=== PATIENT | female | born 1950 | race Caucasian/White ===

== ENCOUNTER 2019-09-21 16:51 | Outpatient (CLI) | payer MEDICARE, SELFPAY ==
[2019-09-21 17:04] LABS: Basophils Absolute Auto 0.06 K/mm3 (0.00-0.10); Basophils Percent Auto 0.5 % (0.0-1.0); Eosinophils Absolute Auto 0.65 K/mm3 (0.02-0.50); Hemoglobin 13.5 g/dL (11.7-13.8); Immature Granulocyte Absolute 0.05 K/mm3 (0.00-0.00); Immature Granulocyte Percent A 0.5 % (0.0-0.0); Lymphocytes Absolute Auto 2.52 K/mm3 (1.10-4.50); Lymphocytes Percent Auto 23.1 % (18.0-42.0); Mean Corpuscular HGB Conc 33.8 g/dL (32.0-36.0); Mean Corpuscular Hemoglobin 30.7 pg (27.0-31.0); Mean Corpuscular Volume 90.9 fL (78.0-102.0); Mean Platelet Volume 9.7 fl (9.2-11.8); Monocytes Absolute Auto 0.72 K/mm3 (0.10-0.90); Monocytes Percent Auto 6.6 % (2.0-11.0); Neutrophils Absolute Auto 6.9 K/mm3 (1.7-7.2); Neutrophils Percent Auto 63.3 % (50.0-70.0); Platelet Count Result 235 K/mm3 (150-420); Red Cell Distribution Width 12.6 % (11.6-14.4); White Blood Count 10.9 K/mm3 (4.8-10.8)
[2019-09-21 17:14] LABS: Hemoglobin A1C 7.3 % (<5.7)
[2019-09-21 17:49] LABS: Alanine Aminotransferase 27 U/L (14-59); Albumin Level 3.6 g/dL (3.4-5.0); Alkaline Phosphatase 100 U/L (46-116); Anion Gap 13.5 mmol/L (7-16); Aspartate Amino Transferase 16 U/L (15-37); Bilirubin,Total 0.1 mg/dL (0.00-1.00); Blood Urea Nitrogen 16 mg/dL (7-18); Carbon Dioxide 30 mmol/L (21-32); Chloride 101 mmol/L (98-108); Cholesterol 287 mg/dL (0-200); Estimated Glomerular Filt Rate > 60; Free T4 Free Thyroxine 1.23 ng/dL (0.76-1.46); Glucose 108 mg/dL (70-99); HDL Direct 44 mg/dL (40-60); LDL Cholesterol Calculated 202 mg/dL (<130); Osmolality Calculated 292 mOsm/kg (285-295); Potassium 4.5 mmol/L (3.5-5.1); Sodium 140 mmol/L (136-145); Total Protein 6.8 g/dL (6.4-8.2); Triglycerides 204 mg/dL (0-150)
[2019-09-21 18:35] LABS: Thyroid Stimulating Hormone Reflex 0.63 u/IU/mL (0.36-3.74)
[2019-09-23 14:52] LABS: Total Triiodothyronine (T3) 82 ng/dL (76-181)
== END 2019-09-21 16:52 | disposition home or self-care (01) ==
LOC: CHSLAB 16:54
PROVIDERS: PCP Family Medicine; Visit Provider Family Medicine
DX: E03.9 Hypothyroidism, unspecified (principal); E11.9 Type 2 diabetes mellitus without complications
CPT/HCPCS: 36415; 80053; 80061; 83036; 84439; 84443; 84480; 85025

== ENCOUNTER 2022-09-10 15:03 | Outpatient (CLI) | payer MEDICARE, SELFPAY ==
[2022-09-10 15:17] LABS: Basophils Absolute Auto 0.05 K/mm3 (0.00-0.10); Basophils Percent Auto 0.5 % (0.0-1.0); Eosinophils Absolute Auto 0.63 K/mm3 (0.02-0.50); Eosinophils Percent Auto 6.5 % (1.0-6.0); Hematocrit 37.5 % (35.0-42.0); Hemoglobin 12.3 g/dL (11.7-13.8); Immature Granulocyte Absolute 0.01 K/mm3 (0.00-0.00); Immature Granulocyte Percent A 0.1 % (0.0-0.0); Lymphocytes Absolute Auto 2.19 K/mm3 (1.10-4.50); Lymphocytes Percent Auto 22.5 % (18.0-42.0); Mean Corpuscular HGB Conc 32.8 g/dL (32.0-36.0); Mean Corpuscular Hemoglobin 30.8 pg (27.0-31.0); Mean Corpuscular Volume 93.8 fL (78.0-102.0); Mean Platelet Volume 9.3 fl (9.2-11.8); Monocytes Absolute Auto 0.67 K/mm3 (0.10-0.90); Monocytes Percent Auto 6.9 % (2.0-11.0); Neutrophils Absolute Auto 6.2 K/mm3 (1.7-7.2); Neutrophils Percent Auto 63.5 % (50.0-70.0); Platelet Count Result 235 K/mm3 (150-420); Red Cell Distribution Width 12.8 % (11.6-14.4); White Blood Count 9.8 K/mm3 (4.8-10.8)
[2022-09-10 15:27] LABS: Hemoglobin A1C 6.3 % (<5.7)
[2022-09-10 16:01] LABS: Alanine Aminotransferase 19 U/L (14-59); Albumin Level 3.4 g/dL (3.4-5.0); Alkaline Phosphatase 83 U/L (46-116); Anion Gap 7 mmol/L (8-16); Aspartate Amino Transferase 13 U/L (15-37); Bilirubin,Total 0.1 mg/dL (0.00-1.00); Blood Urea Nitrogen 18 mg/dL (7-18); Calcium 9.3 mg/dL (8.5-10.1); Carbon Dioxide 33 mmol/L (21-32); Chloride 103 mmol/L (98-108); Estimated Glomerular Filt Rate > 60; Free T4 Free Thyroxine 0.97 ng/dL (0.76-1.46); Glucose 110 mg/dL (70-99); Osmolality Calculated 298 mOsm/kg (285-295); Phenytoin Dilantin 10 ug/mL (10-20); Potassium 4.5 mmol/L (3.5-5.1); Sodium 143 mmol/L (136-145); Total Protein 6.7 g/dL (6.4-8.2)
== END 2022-09-10 15:04 | disposition home or self-care (01) ==
LOC: CHSLAB 15:05
PROVIDERS: PCP Nurse Practitioner Family; Visit Provider Nurse Practitioner Family
DX: E11.9 Type 2 diabetes mellitus without complications (principal); I10 Essential (primary) hypertension; E03.9 Hypothyroidism, unspecified
CPT/HCPCS: 36415; 80053; 80185; 83036; 84439; 84443; 85025

== ENCOUNTER 2022-10-08 14:12 | Outpatient (CLI) | payer MEDICARE, OTHER, SELFPAY ==
--- NOTE | ~2022-10-08 | US_ITS ---
US soft tissue upper back DATE: 10/08/2022 14:34 INDICATION: Localized mass on trunk, right back, for 2 months TECHNIQUE: Real-time and color flow imaging targeted to area of localized lump on right back COMPARISON: None FINDINGS: There is a 3.9 x 3.6 x 1.7 cm mildly irregular complicated cystic lesion with through trans mission and posterior enhancement in the subcutaneous soft tissues of the right back at the area of c linical complaint of lump. Mild color flow signal is noted at the margin suggesting some surrounding possible inflammatory change. Consider abscess, large sebaceous cyst, liquefying hematoma. IMPRESSION: 3.9 x 3.6 x 1.7 cm complicated cystic lesion of the subcutaneous tissues of the posterior right back Reviewed, dictated and finalized at [facility]. Reviewed, dictated and finalized at location [] IMPRESSION: 3.9 x 3.6 x 1.7 cm complicated cystic lesion of the subcutaneous ti ssues of the posterior right back
== END 2022-10-08 14:13 | disposition home or self-care (01) ==
LOC: CHSIMG 14:14
PROVIDERS: PCP Nurse Practitioner Family; Visit Provider Nurse Practitioner Family
DX: R22.2 Localized swelling, mass and lump, trunk (principal)
CPT/HCPCS: 76604

== ENCOUNTER 2022-10-13 16:11 | Emergency (ER) | payer MEDICARE, OTHER, SELFPAY ==
[2022-10-13 16:26] VITALS: BP 124/97; PULSE 89; RESP 20; TEMP 36.4; O2SAT 97
--- NOTE | 2022-10-13 18:43 | ED.GENADULT ---
HPI - General Adult General Chief complaint: Back Pain/Injury Stated complaint: back pain Time Seen by Provider: 10/13/22 16:31 History of Present Illness HPI narrative: Patient is a 72-year-old female who presents ER with concerns for infection to her back. Patient had a small area that looked like a blackhead several weeks ago that her tried to remove with a needle. Since then its become swollen and red. Patient is on oral antibiotics for 10 days that did not help. Symptoms persist today. There is been no drainage. No fevers or chills or sweats. Its located in the right mid back region. There is fluctuance. Related Data Home Medications Medication Instructions Recorded Confirmed Lactobacillus acidophilus 2,000 mmu cells PO BID 09/21/19 10/06/22 aspirin 325 mg tablet 325 mg PO DAILY 09/21/19 10/06/22 loratadine 10 mg capsule 10 mg PO DAILY 09/21/19 10/06/22 magnesium oxide 400 mg PO DAILY 09/21/19 10/06/22 meclizine 25 mg tablet 25 mg PO BID PRN 09/21/19 10/06/22 Allergies Allergy/AdvReac Type Severity Reaction Status Date / Time latex Allergy Intermediate Unknown Verified 10/06/22 14:32 Penicillins Allergy Intermediate Unknown Verified 10/06/22 14:32 Review of Systems Review of Systems: ROS unobtainable: Yes other (Aphasia due to stroke) [facility] Past Medical History Medical History (Updated 10/13/22 @ 18:45 by Saeid Fink MD) 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 HEAD: Normocephalic, atraumatic. CHEST: Clear to auscultation. No respiratory distress. HEART: Regular rate and rhythm. Normal peripheral pulses. SKIN: Warm, dry, no rash. Cystic abscess right back approximately 6 cm x 4 cm with overlying cellulitis noted. NEURO: Awake and alert and at neurologic baseline.. PSYCH: Normal mood and affect. Course Course Emergency Course: Cystic abscess drain. Packed. Discharge home. Discussed removal packing in 2 days. Vital Signs Vital signs: Vital Signs Temperature 97.5 F L 10/13/22 16:26 Pulse Rate 89 10/13/22 16:26 Respiratory Rate 20 10/13/22 16:26 Blood Pressure 124/97 H 10/13/22 16:26 Pulse Oximetry 97 10/13/22 16:26 Oxygen Delivery Room Air 10/13/22 16:26 Temperature 97.5 F L 10/13/22 16:26 Pulse Rate 89 10/13/22 16:26 Respiratory Rate 20 10/13/22 16:26 Blood Pressure 124/97 H 10/13/22 16:26 Pulse Oximetry 97 10/13/22 16:26 Oxygen Delivery Room Air 10/13/22 16:26 Procedures Abscess I/D back: Date of Incision: 10/13/22 Local Anesthetic: lidocaine 1% and with epi Amount of anesthesia used (mL): 6 Technique: incised with #11 blade Packing used?: iodoform I&D Results: Pus Complications: pain Medical Decision Making Vital Signs Vital Signs: Vital Signs Temperature 97.5 F L 10/13/22 16:26 Pulse Rate 89 10/13/22 16:26 Respiratory Rate 20 10/13/22 16:26 Blood Pressure 124/97 H 10/13/22 16:26 Pulse Oximetry 97 10/13/22 16:26 Oxygen Delivery Room Air 10/13/22 16:26 Temperature 97.5 F L 10/13/22 16:26 Pulse Rate 89 10/13/22 16:26 Respiratory Rate 20 10/13/22 16:26 Blood Pressure 124/97 H 10/13/22 16:26 Pulse Oximetry 97 10/13/22 16:26 Oxygen Delivery Room Air 10/13/22 16:26 Discharge Plan Discharge Clinical Impression: Infected cyst of skin P
== END 2022-10-13 19:05 | disposition home or self-care (01) ==
PROVIDERS: Emergency Provider Emergency Medicine; PCP Nurse Practitioner Family
DX: L02.212 Cutaneous abscess of back [any part, except buttock and flank] (principal); L03.312 Cellulitis of back [any part except buttock and flank]; G40.909 Epilepsy, unspecified, not intractable, without status epilepticus; I10 Essential (primary) hypertension; E78.00 Pure hypercholesterolemia, unspecified; E03.9 Hypothyroidism, unspecified; I69.320 Aphasia following cerebral infarction; E11.9 Type 2 diabetes mellitus without complications; K21.9 Gastro-esophageal reflux disease without esophagitis; F32.A Depression, unspecified; Z90.710 Acquired absence of both cervix and uterus; Z79.82 Long term (current) use of aspirin
CPT/HCPCS: 10061; 10080; 99283

== ENCOUNTER 2023-05-07 13:54 | Outpatient (CLI) | payer MEDICARE, OTHER, SELFPAY ==
[2023-05-07 14:14] LABS: Basophils Absolute Auto 0.06 K/mm3 (0.00-0.10); Basophils Percent Auto 0.6 % (0.0-1.0); Eosinophils Absolute Auto 0.35 K/mm3 (0.02-0.50); Eosinophils Percent Auto 3.3 % (1.0-6.0); Hematocrit 37.4 % (35.0-42.0); Hemoglobin 12.2 g/dL (11.7-13.8); Immature Granulocyte Absolute 0.08 K/mm3 (0.00-0.00); Immature Granulocyte Percent A 0.8 % (0.0-0.0); Lymphocytes Absolute Auto 1.79 K/mm3 (1.10-4.50); Lymphocytes Percent Auto 16.9 % (18.0-42.0); Mean Corpuscular HGB Conc 32.6 g/dL (32.0-36.0); Mean Corpuscular Hemoglobin 30.9 pg (27.0-31.0); Mean Corpuscular Volume 94.7 fL (78.0-102.0); Mean Platelet Volume 9.5 fl (9.2-11.8); Monocytes Percent Auto 5.7 % (2.0-11.0); Neutrophils Absolute Auto 7.7 K/mm3 (1.7-7.2); Neutrophils Percent Auto 72.7 % (50.0-70.0); Platelet Count Result 453 K/mm3 (150-420); Red Blood Count 3.95 M/mm3 (4.20-5.40); Red Cell Distribution Width 13.2 % (11.6-14.4); White Blood Count 10.6 K/mm3 (4.8-10.8)
[2023-05-07 14:25] LABS: Hemoglobin A1C 6.7 % (<5.7)
[2023-05-07 15:30] LABS: Alanine Aminotransferase 36 U/L (14-59); Albumin Level 3.4 g/dL (3.4-5.0); Alkaline Phosphatase 96 U/L (46-116); Anion Gap 6 mmol/L (8-16); Aspartate Amino Transferase 14 U/L (15-37); Bilirubin,Total 0.1 mg/dL (0.00-1.00); Blood Urea Nitrogen 15 mg/dL (7-18); Calcium 9.8 mg/dL (8.5-10.1); Carbon Dioxide 34 mmol/L (21-32); Chloride 99 mmol/L (98-108); Cholesterol 277 mg/dL (0-200); Estimated Glomerular Filt Rate > 60; Free T4 Free Thyroxine 0.88 ng/dL (0.76-1.46); Glucose 218 mg/dL (70-99); HDL Direct 46 mg/dL (40-60); LDL Cholesterol Calculated 181 mg/dL (<130); Magnesium 1.9 mg/dL (1.8-2.4); Osmolality Calculated 295 mOsm/kg (285-295); Potassium 4.5 mmol/L (3.5-5.1); Sodium 139 mmol/L (136-145); Thyroid Stimulating Hormone 3.72 uIU/mL (0.36-3.74); Total Protein 6.7 g/dL (6.4-8.2); Triglycerides 251 mg/dL (0-150)
[2023-05-07 15:48] LABS: Vitamin B12 > 2000 pg/mL (193-986)
[2023-05-10 16:10] LABS: Vitamin D 25 Hydroxy 49 ng/mL (30-100)
== END 2023-05-07 13:55 | disposition home or self-care (01) ==
LOC: CHSLAB 13:55
PROVIDERS: PCP Nurse Practitioner Family; Visit Provider Nurse Practitioner Family
DX: E53.8 Deficiency of other specified B group vitamins (principal); Z79.899 Other long term (current) drug therapy; E11.9 Type 2 diabetes mellitus without complications; I10 Essential (primary) hypertension; Z13.6 Encounter for screening for cardiovascular disorders; E78.00 Pure hypercholesterolemia, unspecified; E03.9 Hypothyroidism, unspecified
CPT/HCPCS: 36415; 80053; 80061; 82306; 82607; 83036; 83735; 84439; 84443; 85025

== ENCOUNTER 2024-05-05 00:30 | Emergency (ER) | payer MEDICARE, OTHER, SELFPAY ==
--- NOTE | ~2024-05-05 | XR_ITS ---
Portable chest x-ray Comparison: 09/22/2017 Clinical History: Cough Findings: Stable right suprahilar density, probably related to the anterior right first rib. No acut e pulmonary abnormality seen. Cardiomediastinal silhouette is stable. Bones and soft tissues are unr emarkable. Impression: No acute abnormalities. Reviewed, dictated and finalized at [facility]. ERCIAL [employer] Impression: No acute abnormalities.
[2024-05-05 00:30] VITALS: BP 108/58; PULSE 79; RESP 18; TEMP 36.8; O2SAT 97
--- NOTE | 2024-05-05 00:40 | ED.FEVER ---
HPI - Fever General Chief Complaint: Fever Stated Complaint: Fever Time Seen by Provider: 05/05/24 00:39 Source: patient and family Mode of arrival: ambulatory Limitations: no limitations History of Present Illness HPI Narrative: patient is a 73-year-old female with feverish sensation today and concerns for a pneumonia process. She was on an antibiotic for an upper respiratory infection a week ago. Family said they are just worried about the fever sensation and wanted a workup for that at this time. MD elicited complaint: fever and malaise Pertinent past history: other ( Hypertension) Onset (ago): day(s) (1; tactile fever only without a thermometer) Context: recent antibiotic use Exacerbating factors: nothing Relieving factors: nothing Associated symptoms: denies other symptoms Treatments prior to arrival fever: none Related Data Home Medications ?Medication ?Instructions ?Recorded ?Confirmed ?Last Taken ?Type aspirin 325 mg tablet 325 mg PO DAILY 09/21/19 04/14/24 Unknown History loratadine 10 mg capsule 10 mg PO DAILY 09/21/19 04/14/24 Unknown History magnesium oxide 400 mg PO DAILY 09/21/19 04/14/24 Unknown History meclizine 25 mg tablet 25 mg PO BID PRN 09/21/19 04/14/24 Unknown History Allergies Allergy/AdvReac Type Severity Reaction Status Date / Time latex Allergy Intermediate Unknown Verified 04/14/24 11:52 Penicillins Allergy Intermediate Unknown Verified 04/14/24 11:52 Review of Systems Review of Systems: All systems reviewed & are unremarkable except as noted in HPI and below Constitutional: Constitutional: Reports no additional constitutional complaints Eyes: Eyes: Reports no additional eye complaints ENT: Reports system reviewed and no additional complaints, except as documented Cardiovascular: Cardiovascular: Reports no additional cardiovascular complaints Respiratory: Respiratory: Reports no additional respiratory complaints Gastrointestinal: Gastrointestinal: Reports no additional gastrointestinal complaints Genitourinary: Genitourinary: Reports no additional female genitourinary complaints Musculoskeletal: Musculoskeletal: Reports no additional musculoskeletal complaints Integumentary/Breasts: Skin/Breast: Reports system reviewed and no additional complaints, except as docu Neurologic: Reports system reviewed and no additional complaints, except as documented Psychiatric: Psychiatric: Reports no additional psychiatric complaints Endocrine: Endocrine: Reports no additional endocrine complaints Hematologic/Lymphatic: Hematologic/Lymphatic: Reports no additional hematologic/lymphatic complaints Allergic/Immunologic: Allergic/Immunologic: Reports no additional allergic/immunologic complaints PMFSH Past Medical History Medical History 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 Type 2 diabetes mellitus Seizure disorder CVA (cerebral vascular accident) Hypothyroidism Hypertension Hypercholesterolemia Chronic GERD Depression Surgical History Surgical History History of hysterectomy Social History Social History Smoking status: Former smoker Alcohol intake: never Substance use: never Substance use type: does not use Living arrangements: with family Exam Const: General: healthy appearing Nutritional Appearance: well nourished Orientation/consciousness: patient oriented x3 Limitations: no limitations HENMT: Head: normal to inspection Ears: external ears normal Face/Nose/Sinus: Normal external nose present Eyes: Conjunctivae: conjunctivae normal Pupils: Equal, round and reactive pupils present EOM: EOMs intact bilaterally Neck: Neck: normal visual inspection Chest: Chest palpation & inspection: normal inspection of the chest Resp: Effort & Inspection: normal respiratory effort and not labored Auscultation: clear to auscultation bilaterally and no crackles Cardio: Rate: regular rate Rhythm: regular rhythm Heart sounds: no murmurs GI: Inspection: non-distended GI Palp: Yes Soft to palpation and No Tenderness to palpation present (GI) Auscultation: normal bowel sounds : General: Yes bladder normal to palpation Back/Spine/Pelvis: Back: no CVA tenderness Skin: General skin exam: normal color Rashes: no rashes Wounds: no wounds Neuro: General: patient oriented x3 Cranial nerves: Yes Nystagmus not present Speech: normal speech Gait exam (Neuro): Normal gait present Extrem: General: normal to inspection Psych: Appearance: grossly normal Mental Status: mental status grossly normal Affect: normal affect Attitude: cooperative MDM - Fever MDM Narrative Medical decision making narrative: patient is a 73-year-old female with fevers sensation today and concerns for infection. We will do a septic workup at this time. Evaluation shows UTI. We will treat accordingly. We will use Levaquin to cross cover lung and urinary system. Lab Data Attestation: I reviewed the patient's lab results. 05/05/24 01:10 05/05/24 01:10 Labs: Lab Results 05/05/24 05/05/24 Range/Units 01:10 01:45 WBC 9.2 (4.8-10.8) K/mm3 RBC 3.93 L (4.20-5.40) M/mm3 Hgb 11.9 (11.7-13.8) g/dL Hct 37.0 (35.0-42.0) % MCV 94.1 (78.0-102.0) fL MCH 30.3 (27.0-31.0) pg MCHC 32.2 (32-36) g/dL RDW 13.7 (11.6-14.4) % Plt Count 237 (150-420) K/mm3 MPV 9.4 (9.2-11.8) fl Immature Gran % (Auto) 0.2 H (0.0-0.0) % Neut % (Auto) 56.0 (50.0-70.0) % Lymph % (Auto) 30.4 (18.0-42.0) % [place] % (Auto) 7.0 (2.0-11.0) % Eos % (Auto) 5.6 (1.0-6.0) % Baso % (Auto) 0.8 (0.0-1.0) % Lymph # (Auto) 2.79 (1.10-4.50) K/mm3 [place] # (Auto) 0.64 (0.10-0.90) K/mm3 Eos # (Auto) 0.51 H (0.02-0.50) K/mm3 Baso # (Auto) 0.07 (0.00-0.10) K/mm3 Abs Immat Gran (auto) 0.02 H (0.00-0.00) K/mm3 Absolute Neuts (auto) 5.14 (1.70-7.20) K/mm3 Absolute Nucleated RBC 0.00 (0.00-0.00) K/mm3 Nucleated RBC % 0.0 (0-0.0) % Sodium 145 (136-145) mmol/L Potassium 4.2 (3.5-5.1) mmol/L Chloride 105 (98-108) mmol/L Carbon Dioxide 31 (21-32) mmol/L Anion Gap 9 (4-12) mmol/L BUN 27 H (7-18) mg/dL Creatinine 0.80 (0.55-1.02) mg/dL Estim Creat Clear Calc Not Reportable Estimated GFR > 60 (59 - ) Glucose 185 H (70-99) mg/dL Calculated Osmolality 310 H (285-295) mOsm/kg Lactic Acid 1.6 (0.4-2.0) mmol/L Calcium 9.3 (8.5-10.1) mg/dL Total Bilirubin 0.1 (0.00-1.00) mg/dL AST 12 L (15-37) U/L ALT 25 (14-59) U/L Alkaline Phosphatase 78 (46-116) U/L Total Protein 6.6 (6.4-8.2) g/dL Albumin 3.5 (3.4-5.0) g/dL Urine Color Light yellow (Yellow) Urine Appearance Cloudy A (Clear) Urine pH 5.5 (5.0-8.0) Ur Specific [place] >= 1.030 H (1.010-1.020) Urine Protein Trace H (Negative) Urine Glucose (UA) Negative (Negative) Urine Ketones Trace H (Negative) Ur Blood (Man) 1+ H (Negative) Urine Nitrate Negative (Negative) Urine Bilirubin Negative (Negative) Urine Urobilinogen 0.2 (0.2-1.0) mg/dL Leukocyte Esterase Rfl 2+ H (Negative) PAWEL/UL Urine RBC 11-20 H (0-2) /hpf Urine WBC 51-75 H (0-3) /hpf Ur Squamous Epith Cells Moderate H (Few) /hpf Amorphous Sediment Heavy H (None) Urine Bacteria 2+ H (None) /hpf Influenza A (RT-PCR) Negative (Negative) Influenza B (RT-PCR) Negative (Negative) RSV (RT-PCR) Negative (Negative) SARS-CoV-2 RNA (RT-PCR) Negative (Negative) Imaging Data Attestation: I personally reviewed and interpreted this imaging study as follows: Radiologist's impression: Chest x-ray shows no acute process and chronic changes seen Discharge Plan Discharge Clinical Impression: Acute UTI Patient Disposition: Home, Self-Care Condition: Stable Instructions: Antibiotic Form, Urinary Tract Infection in Women (DC) Patient Language: [place] Prescriptions: New levofloxacin 500 mg tablet 500 mg PO DAILY 7 Days Qty: 7 0RF No Action magnesium oxide 400 mg magnesium capsule 400 mg PO DAILY aspirin 325 mg tablet 325 mg PO DAILY loratadine 10 mg capsule 10 mg PO DAILY meclizine 25 mg tablet 25 mg PO BID PRN azithromycin [Zithromax Z-Ian] 250 mg tablet See Rx Instructions PO .COMPLEX Qty: 6 0RF Rx Instructions: take 500 mg today (day 1), then 250 mg for 4 days (days 2-5) PO Lactobacillus acidophilus Capsule 2,000 mmu cells PO BID Qty: 60 2RF Rx Instructions: give with food (meal/snack) dantrolene 25 mg capsule See Rx Instructions .ROUTE .COMPLEX Qty: 180 3RF Dose Instruction: TAKE 1 CAPSULE TWICE DAILY Rx Instructions: TAKE 1 CAPSULE TWICE DAILY atorvastatin 20 mg tablet 20 mg PO QHS Qty: 90 2RF baclofen 10 mg tablet See Rx Instructions .ROUTE .COMPLEX Qty: 90 0RF Dose Instruction: TAKE 1/2 TABLET BY MOUTH TWICE DAILY Rx Instructions: TAKE 1/2 TABLET BY MOUTH TWICE DAILY potassium chloride 20 mEq tablet,ER particles/crystals See Rx Instructions .ROUTE .COMPLEX Qty: 180 3RF Dose Instruction: TAKE 1 TABLET TWICE DAILY Rx Instructions: TAKE 1 TABLET TWICE DAILY levothyroxine 150 mcg tablet 150 mcg PO DAILY Qty: 90 3RF lisinopril 10 mg tablet See Rx Instructions .ROUTE .COMPLEX Qty: 90 3RF Dose Instruction: TAKE 1 TABLET BY MOUTH EVERY DAY Rx Instructions: TAKE 1 TABLET BY MOUTH EVERY DAY fluoxetine 20 mg capsule See Rx Instructions .ROUTE .COMPLEX Qty: 90 3RF Dose Instruction: TAKE 1 CAPSULE EVERY DAY Rx Instructions: TAKE 1 CAPSULE EVERY DAY phenytoin sodium extended 100 mg capsule See Rx Instructions .ROUTE .COMPLEX Qty: 270 3RF Dose Instruction: TAKE 1 CAPSULE IN MORNING AND 2 CAPSULES IN EVENING. Rx Instructions: TAKE 1 CAPSULE IN MORNING AND 2 CAPSULES IN EVENING. carvedilol 12.5 mg tablet See Rx Instructions .ROUTE .COMPLEX Qty: 180 3RF Dose Instruction: TAKE 1 TABLET EVERY 12 HOURS WITH MEALS Rx Instructions: TAKE 1 TABLET EVERY 12 HOURS WITH MEALS omeprazole 20 mg capsule,delayed release(DR/EC) See Rx Instructions .ROUTE .COMPLEX Qty: 90 3RF Dose Instruction: TAKE 1 CAPSULE EVERY DAY WITH LARGEST MEAL Rx Instructions: TAKE 1 CAPSULE EVERY DAY WITH LARGEST MEAL hydrochlorothiazide 25 mg tablet See Rx Instructions .ROUTE .COMPLEX Qty: 90 3RF Dose Instruction: TAKE 1 TABLET EVERY DAY Rx Instructions: TAKE 1 TABLET EVERY DAY gabapentin 300 mg capsule See Rx Instructions .ROUTE .COMPLEX Qty: 180 3RF Dose Instruction: TAKE 1 CAPSULE TWICE DAILY Rx Instructions: TAKE 1 CAPSULE TWICE DAILY Follow-up/Referrals: Iwona Devi BALANCE STAFF INSPECTOR [Primary Care Provider] - Time of Disposition: 04:05
[2024-05-05 01:14] LABS: Basophils Absolute Auto 0.07 K/mm3 (0.00-0.10); Basophils Percent Auto 0.8 % (0.0-1.0); Eosinophils Absolute Auto 0.51 K/mm3 (0.02-0.50); Eosinophils Percent Auto 5.6 % (1.0-6.0); Hemoglobin 11.9 g/dL (11.7-13.8); Immature Granulocyte Absolute 0.02 K/mm3 (0.00-0.00); Immature Granulocyte Percent A 0.2 % (0.0-0.0); Lymphocytes Absolute Auto 2.79 K/mm3 (1.10-4.50); Lymphocytes Percent Auto 30.4 % (18.0-42.0); Mean Corpuscular HGB Conc 32.2 g/dL (32-36); Mean Corpuscular Hemoglobin 30.3 pg (27.0-31.0); Mean Corpuscular Volume 94.1 fL (78.0-102.0); Mean Platelet Volume 9.4 fl (9.2-11.8); Monocytes Absolute Auto 0.64 K/mm3 (0.10-0.90); Neutrophils Absolute Auto 5.14 K/mm3 (1.70-7.20); Platelet Count Result 237 K/mm3 (150-420); Red Blood Count 3.93 M/mm3 (4.20-5.40); Red Cell Distribution Width 13.7 % (11.6-14.4); White Blood Count 9.2 K/mm3 (4.8-10.8)
[2024-05-05 01:29] LABS: Alanine Aminotransferase 25 U/L (14-59); Albumin Level 3.5 g/dL (3.4-5.0); Alkaline Phosphatase 78 U/L (46-116); Anion Gap 9 mmol/L (4-12); Aspartate Amino Transferase 12 U/L (15-37); Bilirubin,Total 0.1 mg/dL (0.00-1.00); Blood Urea Nitrogen 27 mg/dL (7-18); Calcium 9.3 mg/dL (8.5-10.1); Carbon Dioxide 31 mmol/L (21-32); Chloride 105 mmol/L (98-108); Estimated Glomerular Filt Rate > 60; Glucose 185 mg/dL (70-99); Osmolality Calculated 310 mOsm/kg (285-295); Potassium 4.2 mmol/L (3.5-5.1); Sodium 145 mmol/L (136-145); Total Protein 6.6 g/dL (6.4-8.2)
[2024-05-05 01:33] LABS: Influenza A QL RT-PCR Negative (Negative); Influenza B QL RT-PCR Negative (Negative); RSV RNA, RT-PCR Negative (Negative); SARS-CoV-2 RNA PCR Negative (Negative)
[2024-05-05 01:36] LABS: Lactic Acid Reflex 1.6 mmol/L (0.4-2.0)
[2024-05-05 01:49] LABS: Add Urine Microscopic? YES; Appearance Urine Cloudy (Clear); Bilirubin Urine Negative (Negative); Blood Urine 1+ (Negative); Color Urine Light Yellow (Yellow); Glucose Urine UA Negative (Negative); Ketones Urine Trace (Negative); Leukocyte Esterase Ur 2+ LEU/UL (Negative); Nitrate Urine Negative (Negative); Protein Urine Trace (Negative); Specific Grav Ur >= 1.030 (1.010-1.020); Urobilinogen Urine 0.2 mg/dL (0.2-1.0); pH Urine 5.5 (5.0-8.0)
[2024-05-05 01:55] LABS: Amorphous Sediment Urine Heavy; Bacteria Urine 2+ /hpf; Squamous Epithelial Cell Urine Moderate /hpf (Few); WBC Urine 51-75 /hpf (0-3)
[2024-05-05] MEDS: levoFLOXacin 500 MG TABLET PO (04:20)
[2024-05-05 04:43] VITALS: BP 110/62; PULSE 76; RESP 18; TEMP 36.8; O2SAT 98
--- NOTE | 2024-05-07 12:33 | PC.NURSE ---
FINAL URINE CULTURE REPORT; MIXED GENITAL ROHIT ISOLATED, NO FURTHER ACTION OR CHANGE IN TREATMENT PER DR. MONTEIRO.
--- NOTE | 2024-05-07 12:33 | PC.NURSE ---
PRELIMINARY BLOOD CULTURE; NO GROWTH TO DATE.
--- NOTE | 2024-05-11 14:22 | PC.NURSE ---
blood culture reviewed, no growth after 5 days
--- OUTSIDE RECORDS SUMMARY | 2024-05-11 20:08 | XMS_ITS | Encounter Summary ---
Author Organization [facility] Address [facility] [facility] [place] [address] [place] [address] Care Team Providers Care Air Conditioning Engineer Name Role Phone Unavailable Primary Care Provider Unavailabl e Encounter Details Date Type Department Care Team (Late st Contact Info) Description 03/07/[address] [facility] [place] [address] Adithya Marcelo, DO [address] [place] [address] Social History Tobacco Use Types Packs/Day Years Used Date Smoking Tobacco: Never Assessed Comments Unknown Sex and Gender Information Value Date Recorded Sex Assigned at Not on file Legal Sex Female 1:26 AM CDT Gender Identity Not on file Sexual Orientation Not on file documented as of this encounter Plan of Treatment Not on file documented as of this encounter Visit Diagnoses Diagnosis Protein calorie malnutrition (CMS/HCC HHS/HCC) Unspecified protein-calorie malnutrition documented in this encounter
--- OUTSIDE RECORDS SUMMARY | 2024-05-11 20:08 | XMS_ITS | Encounter Summary ---
Author Organization [facility] Address [facility] [facility] [place] [address] [place] [address] Care Team Providers Care Russian History Professor Name Role Phone Unavailable Primary Care Provider Unavailabl e Encounter Details Date Type Department Care Team (Late st Contact Info) Description 03/11/2012 Abstract [facility] [address] [facility] [place] [address] Adithya Marcelo DO [address] [place] [address] Social History Tobacco Use Types Packs/Day Years Used Date Smoking Tobacco: Never Assessed Comments Unknown Sex and Gender Information Value Date Recorded Sex Assigned at Not on file Legal Sex Female 1:26 AM CDT Gender Identity Not on file Sexual Orientation Not on file documented as of this encounter Last Filed Vital Signs Vital Sign Reading Time Taken Comments Blood Pressure 112/58 03/11/2012 5:22 PM FISH NET STRINGER Pulse - - Temperature - - Respiratory Rate - - Oxygen Saturation - - Inhaled Oxygen Concentration - - Weight 49.9 kg (110 lb) 03/11/2012 5:22 PM FISH NET STRINGER Height 152.4 cm (5') 03/11/2012 5:22 PM FISH NET STRINGER Body Mass Index 21.48 03/11/2012 5:22 PM FISH NET STRINGER documented in this encounter Progress Notes * Adithya Marcelo DO - 03/11/2012 4:00 PM CST Past Medical History 1. History of Dysphagia 787.20 Surgical History 1. History of Percutaneous Placement Of Gastrostomy Tube V44.1 Social History ?? Creek Language Ukrainian ?? Never A Smoker Current Meds 1. Aspirin TABS; Therapy: (Recorded:10Mar2012) to Recorded; Dispense: 0 Days ; #: Sufficient TABS; Refill: 0; Record; Last Updated By: Radha Monroy 2. Benefiber PACK; Therapy: (Recorded:10Mar2012) to Recorded; Dispense: 0 Days ; #: Sufficient PACK; Refill: 0; Record; Last Updated By: Radha Monroy 3. Claritin TABS; Therapy: (Recorded:10Mar2012) to Recorded; Dispense: 0 Days ; #: Sufficient TABS; Refill: 0; Record; Last Updated By: Radha Monroy 4. Coreg TABS; Therapy: (Recorded:10Mar2012) to Recorded; Dispense: 0 Days ; #: Sufficient TABS; Refill: 0; Record; Last Updated By: Radha Monroy 5. Dantrium CAPS; Therapy: (Recorded:10Mar2012) to Recorded; Dispense: 0 Days ; #: Sufficient CAPS; Refill: 0; Record; Last Updated By: Radha Monroy 6. Gabapentin TABS; Therapy: (Recorded:10Mar2012) to Recorded; Dispense: 0 Days ; #: Sufficient TABS; Refill: 0; Record; Last Updated By: Radha Monroy 7. Hydrochlorothiazide 12.5 MG Oral Capsule; Therapy: (Recorded:10Mar2012) to Recorded; Dispense: 0 Days ; #: Sufficient CAPS; Refill: 0; Record; Last Updated By: Radha Monroy 8. Klor-Con 10 10 MEQ Oral Tablet Extended Release; Therapy: (Recorded:10Mar2012) to Recorded; Dispense: 0 Days ; #: Sufficient TBCR; Refill: 0; Record; Last Updated By: Radha Monroy 9. Lisinopril TABS; Therapy: (Recorded:10Mar2012) to Recorded; Dispense: 0 Days ; #: Sufficient TABS; Refill: 0; Record; Last Updated By: Radha Monroy 10. Magnesium Oxide TABS; Therapy: (Recorded:10Mar2012) to Recorded; Dispense: 0 Days ; #: Sufficient TABS; Refill: 0; Record; Last Updated By: Radha Monroy 11. Mucinex TBCR; Therapy: (Recorded:10Mar2012) to Recorded; Dispense: 0 Days ; #: Sufficient TBCR; Refill: 0; Record; Last Updated By: Radha Monroy 12. Multi-Vitamin TABS; Therapy: (Recorded:10Mar2012) to Recorded; Dispense: 0 Days ; #: Sufficient TABS; Refill: 0; Record; Last Updated By: Radha Monroy 13. Norvasc TABS; Therapy: (Recorded:10Mar2012) to Recorded; Dispense: 0 Days ; #: Sufficient TABS; Refill: 0; Record; Last Updated By: Radha Monroy 14. Phenytoin Sodium CAPS; Therapy: (Recorded:10Mar2012) to Recorded; Dispense: 0 Days ; #: Sufficient CAPS; Refill: 0; Record; Last Updated By: Radha Monroy 15. PROzac CAPS; Therapy: (Recorded:10Mar2012) to Recorded; Dispense: 0 Days ; #: Sufficient CAPS; Refill: 0; Record; Last Updated By: Radha Monroy 16. Synthroid TABS; Therapy: (Recorded:10Mar2012) to Recorded; Dispense: 0 Days ; #: Sufficient TABS; Refill: 0; Record; Last Updated By: Radha Monroy 17. Zocor TABS; Therapy: (Recorded:10Mar2012) to Recorded; Dispense: 0 Days ; #: Sufficient TABS; Refill: 0; Record; Last Updated By: Radha Monroy Allergies 1. Penicillins Vitals Vital Signs [Data Includes: Current Encounter] 11Mar2012 05:22PM Systolic 112 Diastolic 58 BMI Calculated 21.6 BSA Calculated 1.45 Height 5 ft Weight 110 lb Assessment 1. History of Dysphagia 787.20 2. History of Percutaneous Placement Of Gastrostomy Tube V44.1 3. Creek Language Ukrainian 4. Never A Smoker NET STRINGER documented in this encounter Plan of Treatment Not on file documented as of this encounter Visit Diagnoses Not on filedocumented in this encounter
--- OUTSIDE RECORDS SUMMARY | 2024-05-11 20:08 | XMS_ITS | Encounter Summary ---
Author Organization [facility] Address [address] [place] [address]. [place], [place] [address] [place] [id number] Care Team Providers Care Bowling Ball Molder Name Role Phone Unavailable Primary Care Provider Unavailabl e Encounter Details Date Type Department Care Team (Latest Contact Info) Description 03/04/2011 Abstract [facility] Social History Tobacco Use Types Packs/Day Years [...]
--- OUTSIDE RECORDS SUMMARY | 2024-05-11 20:08 | XMS_ITS | Clinical Summary ---
Author Organization [facility] Address [address] [place] [address]. [place], [place] [address] [place] [address] Care Team Providers Care Senior Designer/Art Director Name Role Phone Unavailable Primary Care Provider Unavailabl e Social History Tobacco Use Types Packs/Day Years Used Date Smoking Tobacco: Never Assessed Comments Unknown Sex and Gender Information Value Date Recorded Sex Assigned at Not on file Legal Sex Female 1:26 AM CDT Gender Identity Not on file Sexual Orientation Not on file Last Filed Vital Signs Vital Sign Reading Time Taken Comments Blood Pressure 112/58 03/11/2012 5:22 PM TITLE SEARCHER Pulse - - Temperature - - Respiratory Rate - - Oxygen Saturation - - Inhaled Oxygen Concentration - - Weight 49.9 kg (110 lb) 03/11/2012 5:22 PM TITLE SEARCHER Height 152.4 cm (5') 03/11/2012 5:22 PM TITLE SEARCHER Body Mass Index 21.48 03/11/2012 5:22 PM TITLE SEARCHER Plan of Treatment Health Maintenance Due Date Last Done Comments Colorectal Cancer Screening Colonoscopy (10 Years) 1948 Hepatitis C 1966 DTaP, Tdap and Td Vaccines ( 1 - Tdap) 1967 Zoster Vaccines (1 of 2) 1998 Dexa Scan (General) 2013 Pneumococcal Vaccine: 65+ Ye ars (1 of 1 - PCV) 2013 RSV Immunization or 60+ Years (1 - 1-dose 75+ series) 2023 COVID-19 Vaccine ( - 2023-2 5 season) 2024 Influenza Adult (#1) 2024 Meningococcal Vaccine Aged Out No jhoan yuridia eligible based on patient's age to complete this topic RSV Immunizations Under 20 Months Aged Out No longer eligible based on patient's age to complete this topic
--- OUTSIDE RECORDS SUMMARY | 2024-05-11 20:08 | XMS_ITS | Encounter Summary ---
Author Organization [facility] Address [facility] [place] [address] [place] [address] Care Team Providers Care Air Transport Professionals Name Role Phone Unavailable Primary Care Provider Unavailabl e Encounter Details Date Type Department Care Team (Late st Contact Info) Description 03/10/2012 Abstract [facility] Surgical Specialists [address] [facility], [address]nd [place] [address] Adithya Marcelo DO [address] [place] [address] Social History Tobacco Use Types Packs/Day Years Used Date Smoking Tobacco: Never Assessed Comments Unknown Sex and Gender Information Value Date Recorded Sex Assigned at Not on file Legal Sex Female 1:26 AM CDT Gender Identity Not on file Sexual Orientation Not on file documented as of this encounter Last Filed Vital Signs Vital Sign Reading Time Taken Comments Blood Pressure 112/58 03/10/2012 4:54 PM CUSTOMER SERVICES SUPERVISOR Pulse - - Temperature - - Respiratory Rate - - Oxygen Saturation - - Inhaled Oxygen Concentration - - Weight 49.9 kg (110 lb) 03/10/2012 4:54 PM CUSTOMER SERVICES SUPERVISOR Height 152.4 cm (5') 03/10/2012 4:54 PM CUSTOMER SERVICES SUPERVISOR Body Mass Index 21.48 03/10/2012 4:54 PM CUSTOMER SERVICES SUPERVISOR documented in this encounter Progress Notes * Adithya Marcelo DO - 03/10/2012 4:30 PM CST Past Medical History 1. History of Dysphagia 787.20 Surgical History 1. History of Percutaneous Placement Of Gastrostomy Tube V44.1 Social History ?? [place]osh[place] Language Upper Sorbian ?? Never A Smoker Current Meds 1. [...] Vitals Vital Signs [Data Includes: Current Encounter] 10Mar2012 04:54PM Systolic 112 Diastolic 58 BMI Calculated 21.6 BSA Calculated 1.45 Height 5 ft Weight 110 lb Assessment 1. History of Dysphagia 787.20 2. History of Percutaneous Placement Of Gastrostomy Tube V44.1 3. [place]osh[place] Language Upper Sorbian 4. Never A Smoker OMER SERVICES SUPERVISOR documented in this encounter Plan of Treatment Not on file documented as of this encounter Visit Diagnoses Not on filedocumented in this encounter
--- OUTSIDE RECORDS SUMMARY | 2024-05-11 20:08 | XMS_ITS | Encounter Summary ---
Author Organization [facility] Address [address] [place] [address]. [place], [place] [address] [place] [address] Care Team Providers Care Plating Tank Operator Name Role Phone Unavailable Primary Care Provider Unavailabl e Encounter Details Date Type Department Care Team (Latest Contact Info) Description 03/07/2011 Abstract [facility] Medical Group Social History Tobacco Use Types [...]
--- OUTSIDE RECORDS SUMMARY | 2024-05-11 20:08 | XMS_ITS | Encounter Summary ---
Author Organization [facility] Address [address] [place] [address]. [place] [address] [place] [address] Care Team Providers Care Field Sampling Technician Name Role Phone Unavailable Primary Care Provider Unavailabl e Encounter Details Date Type Department Care Team (Late st Contact Info) Description 06/07/2011 Emergency [facility] Emergency [address] [place] [address] Social History Tobacco Use Types Packs/Day Years Used Date Smoking Tobacco: Never Assessed Comments Unknown Sex and Gender Information Value Date Recorded Sex Assigned at Not on file Legal Sex Female 1:26 AM CDT Gender Identity Not on file Sexual Orientation Not on file documented as of this encounter Plan of Treatment Not on file documented as of this encounter Visit Diagnoses Diagnosis Epilepsy (CMS/HCC [facility]) Unspecified epilepsy without mention of intractable epilepsy documented in this encounter
--- OUTSIDE RECORDS SUMMARY | 2024-05-11 23:12 | XMS_ITS | Encounter Summary ---
Author Organization [facility] Address [facility] [address] [place] [address] Care Team Providers Care Paint Specialist Name Role Phone Unavailable Primary Care Provider Unavailabl e Encounter Details Date Type Department Care Team (Late st Contact Info) Description 03/10/2012 Abstract [facility] Medical Group Surgical Specialists [address] [facility] 2nd [place] [address] Adithya Marcelo DO [address] [place] [address] Social History Tobacco Use Types Packs/Day Years [...] Comments Blood Pressure 112/58 03/10/2012 4:54 PM SUPERINTENDENT LAUNDRY Pulse - - Temperature - - Respiratory Rate - - Oxygen Saturation - - Inhaled Oxygen Concentration - - Weight 49.9 kg (110 lb) 03/10/2012 4:54 PM SUPERINTENDENT LAUNDRY Height 152.4 cm (5') 03/10/2012 4:54 PM SUPERINTENDENT LAUNDRY Body Mass Index 21.48 03/10/2012 4:54 PM SUPERINTENDENT LAUNDRY documented in this encounter Progress Notes * Adithya Marcelo DO - 03/10/2012 4:30 PM CST Past Medical History 1. History of Dysphagia 787.20 Surgical History 1. History of Percutaneous Placement Of Gastrostomy Tube V44.1 Social History ?? [place] Language Arabic ?? Never A Smoker Current Meds 1. [...] Percutaneous Placement Of Gastrostomy Tube V44.1 3. [place] Language Arabic 4. Never A Smoker RINTENDENT LAUNDRY documented in this encounter Plan of Treatment Not on file documented as of this encounter Visit Diagnoses Not on filedocumented in this encounter
--- OUTSIDE RECORDS SUMMARY | 2024-05-11 23:12 | XMS_ITS | Encounter Summary ---
Author Organization [facility] Address [facility] [place] [address] [place] [address] Care Team Providers Care Automotive Instructor Name Role Phone Unavailable Primary Care Provider Unavailabl e Encounter Details Date Type Department Care Team (Late st Contact Info) Description 03/11/2012 Abstract [facility] Medical Group Surgical Specialists [address] [facility] 2nd [place] [address] Adithya Marcelo DO [address] [place] [address] Social History Tobacco Use Types Packs/Day Years [...] Comments Blood Pressure 112/58 03/11/2012 5:22 PM CNC MILL PROGRAMMER Pulse - - Temperature - - Respiratory Rate - - Oxygen Saturation - - Inhaled Oxygen Concentration - - Weight 49.9 kg (110 lb) 03/11/2012 5:22 PM CNC MILL PROGRAMMER Height 152.4 cm (5') 03/11/2012 5:22 PM CNC MILL PROGRAMMER Body Mass Index 21.48 03/11/2012 5:22 PM CNC MILL PROGRAMMER documented in this encounter Progress Notes * Adithya Marcelo DO - 03/11/2012 4:00 PM CST Past Medical History 1. History of Dysphagia 787.20 Surgical History 1. History of Percutaneous Placement Of Gastrostomy Tube V44.1 Social History ?? [place] Language Setswana ?? Never A Smoker Current Meds 1. [...] Refill: 0; Record; Last Updated By: Radha Monory 5. Dantrium CAPS; Therapy: (Recorded:10Mar2012) to Recorded; [...] Percutaneous Placement Of Gastrostomy Tube V44.1 3. [place] Language Setswana 4. Never A Smoker MILL PROGRAMMER documented in this encounter Plan of Treatment Not on file documented as of this encounter Visit Diagnoses Not on filedocumented in this encounter
--- OUTSIDE RECORDS SUMMARY | 2024-05-11 23:12 | XMS_ITS | Clinical Summary ---
Author Organization [facility] Address [address] [place] [address]. [place], [place] [address] [place] [address] Care Team Providers Care Surgical Technology Instructor Name Role Phone Unavailable Primary Care [...] Comments Blood Pressure 112/58 03/11/2012 5:22 PM CLASSROOM PARAPROFESSIONAL Pulse - - Temperature - - Respiratory Rate - - Oxygen Saturation - - Inhaled Oxygen Concentration - - Weight 49.9 kg (110 lb) 03/11/2012 5:22 PM CLASSROOM PARAPROFESSIONAL Height 152.4 cm (5') 03/11/2012 5:22 PM CLASSROOM PARAPROFESSIONAL Body Mass Index 21.48 03/11/2012 5:22 PM CLASSROOM PARAPROFESSIONAL Plan of Treatment Health Maintenance Due Date [...]
--- OUTSIDE RECORDS SUMMARY | 2024-05-11 23:12 | XMS_ITS | Encounter Summary ---
Author Organization [facility] Address [address] [place] [address]. [place] [address] [place] [address] Care Team Providers Care Bank Representative Name Role Phone Unavailable Primary Care Provider Unavailabl e Encounter Details Date Type Department Care Team (Late st Contact Info) Description 06/07/2011 Emergency [facility] Emergency [address] [place] [address] Social History Tobacco Use Types Packs/Day Years [...] this encounter Visit Diagnoses Diagnosis Epilepsy (CMS/HCC [facility]) Unspecified epilepsy without mention of intractable epilepsy documented in this encounter
--- OUTSIDE RECORDS SUMMARY | 2024-05-11 23:13 | XMS_ITS | Encounter Summary ---
Author Organization [facility] Address [facility]6 [place] [address] [place] [address] Care Team Providers Care Landing Scaler Name Role Phone Unavailable Primary Care Provider Unavailabl e Encounter Details Date Type Department Care Team (Late st Contact Info) Description 03/07/[address] [place] [address] Adithya Marcelo, DO [address] [place] [address] Social History Tobacco Use Types Packs/Day Years [...]
--- OUTSIDE RECORDS SUMMARY | 2024-05-11 23:13 | XMS_ITS | Encounter Summary ---
Author Organization [facility] Address [address] [place] [address]. [place], [place] [address] [place] [address] Care Team Providers Care Weld Technician Name Role Phone Unavailable Primary Care Provider Unavailabl e Encounter Details Date Type Department Care Team (Latest Contact Info) Description 03/04/2011 Abstract [facility] Medical Group Social History Tobacco Use Types [...]
--- OUTSIDE RECORDS SUMMARY | 2024-05-11 23:13 | XMS_ITS | Encounter Summary ---
Author Organization [facility] Address [address] [place] [address]. [place], [place] [address] [place] [address] Care Team Providers Care Surgical Technologist Name Role Phone Unavailable Primary Care Provider Unavailabl e Encounter Details Date Type Department Care Team (Latest Contact Info) Description 03/07/2011 Abstract [facility] Medical Group Social History Tobacco Use Types [...]
== END 2024-05-05 04:43 | disposition home or self-care (01) ==
LOC: CHSED 04:06
PROVIDERS: Emergency Provider Emergency Medicine; PCP Nurse Practitioner Family
DX: N39.0 Urinary tract infection, site not specified (principal); I10 Essential (primary) hypertension; E11.9 Type 2 diabetes mellitus without complications; E03.9 Hypothyroidism, unspecified; E78.00 Pure hypercholesterolemia, unspecified; G40.909 Epilepsy, unspecified, not intractable, without status epilepticus; K21.9 Gastro-esophageal reflux disease without esophagitis; F32.A Depression, unspecified; Z87.891 Personal history of nicotine dependence; Z79.82 Long term (current) use of aspirin; Z20.822 Contact with and (suspected) exposure to COVID-19
CPT/HCPCS: 36415; 71045; 80053; 81001; 83605; 85025; 87040; 87086; 87637; 99283; A9270

== ENCOUNTER 2025-04-19 16:29 | Outpatient (CLI) | payer MEDICARE, SELFPAY ==
[2025-04-19 16:38] LABS: Hematocrit 40.0 % (35.0-42.0); Hemoglobin 12.7 g/dL (11.7-13.8); Immature Granulocyte Percent A 0.8 % (0.0-0.0); Immature Platelet Fraction Pct 0.8 % (1.0-7.0); Lymphocytes Absolute Auto 1.57 K/mm3 (1.10-4.50); Mean Corpuscular HGB Conc 31.8 g/dL (32-36); Mean Corpuscular Hemoglobin 28.9 pg (27.0-31.0); Mean Corpuscular Volume 90.9 fL (78.0-102.0); Nucleated Red Blood Cells Absolute Auto 0.00 K/mm3 (0.00-0.00); Nucleated Red Blood Cells Perc 0.0 % (0-0.0); Platelet Count Result 554 K/mm3 (150-420); Red Blood Count 4.40 M/mm3 (4.20-5.40); White Blood Count 12.0 K/mm3 (4.8-10.8)
[2025-04-19 17:04] LABS: Alanine Aminotransferase 14 U/L (6-35); Albumin Level 4.2 g/dL (3.5-5.1); Alkaline Phosphatase 90 U/L (38-126); Anion Gap 9 mmol/L (4-12); Aspartate Amino Transferase 20 U/L (14-36); Bilirubin,Total 0.3 mg/dL (0.2-1.3); Blood Urea Nitrogen 23 mg/dL (7-17); Calcium 9.7 mg/dL (8.4-10.2); Carbon Dioxide 29 mmol/L (22-30); Chloride 97 mmol/L (98-107); Estimated Glomerular Filt Rate > 60; Glucose 131 mg/dL (65-110); Osmolality Calculated 285 mOsm/kg (285-295); Potassium 3.6 mmol/L (3.4-5.0); Sodium 135 mmol/L (137-145); Total Protein 6.7 g/dL (6.3-8.2)
[2025-04-19 17:20] LABS: Free T4 Free Thyroxine 2.06 ng/dL (0.78-2.19)
[2025-04-19 17:34] LABS: Thyroid Stimulating Hormone 1.790 uIU/mL (0.465-4.680)
--- OUTSIDE RECORDS SUMMARY | 2025-04-19 18:21 | XMS_ITS | Encounter Summary ---
Author Organization [facility] Address [address] [place] [address] Care Team Providers Care Entertainment Director Name Role Phone Unavailable Primary Care Provider Unavailabl e Encounter Details Date Type Department Care Team (Late st Contact Info) Description 04/13/2025 Orders Only [facility] - Orthopedics [address] [place] [address], [place] [address] Sandra Ernandez PA-C [address] [place] [address] Thoracic back pain, unspecified back pain laterality, unspecified chronicity ; Low back pain, unspecified back pain laterality, unspecified chronicity, unspecified whether sciatica present Social History Tobacco Use Types Packs/Day Years Used Date Smoking Tobacco: Former Cigarettes Alcohol Use Standard Drinks/Week Comments Never 0 (1 standard drink = 0.6 oz pur e alcohol) AUDIT-C Answer Date Recorded Q1: How often do you have a drink containing alcohol? Never 02/15/2025 Q2: How many drinks containi ng alcohol do you have on a typical day when you are drinking? Patient does not drink Q3: How often do you have si x or more drinks on one occasion? Never 02/15/2025 Overall Financial Resource Strain (CARDIA) Answe r Date Recorded How hard is it for you to pa y for the very basics like food, housing, medical care, and heating? Patient unable to answer 02/19/2025 [facility] - Occupational Stress Questionnaire Answer Date Recorded Do you feel stress - tense, restless, nervous, or anxious, or unable to sleep at night because your mind is troubled all the time - these days? Patient unable to answer 02/19/2025 Hunger Vital Sign Answer Date Recorded Within the past 12 months, y ou worried that your food would run out before you got the money to buy more. Patient unable to answer 02/19/2025 Within the past 12 months, t he food you bought just didn't last and you didn't have money to get more. Patient unable to answer 02/19/2025 PRAPARE - Transportation Answer Date Re corded In the past 12 months, has l ack of transportation kept you from medical appointments or from getting medications? Patient unable to answer 02/19/2025 In the past 12 months, has l ack of transportation kept you from meetings, work, or from getting things needed for daily living? Patient unable to answer 02/19/2025 Housing Stability Vital Sign Answer Camron e Recorded In the last 12 months, was t here a time when you were not able to pay the mortgage or rent on time? Patient unable to answer 02/19/2025 Number of Times Moved in the Last Year Not on fi le 02/19/2025 At any time in the past 12 m [facility], were you homeless or living in a half-way (including now)? Patient unable to answer 02/19/2025 Comments No Sex and Gender Information Value Date Recorded Sex Assigned at Not on file Legal Sex Female 11:17 AM CDT Gender Identity Not on file Sexual Orientation Not on file documented as of this encounter Functional Status * Is person deaf or have serious hearing difficulty? Answer Date of Assessment Author No 02/19/2025 11:00 PM CDT Kareem Joaquin RN * Is person blind or have serious difficulty seeing? Answer Date of Assessment Author No 02/19/2025 11:00 PM CDT Kareem Joaquin RN * Does person have serious difficulty walking/climbing stairs? Answer Date of Assessment Author Yes 02/19/2025 11:00 PM CDT Kareem Joaquin RN * Does person have difficulty dressing/bathing? Answer Date of Assessment Author Yes 02/19/2025 11:00 PM Kareem Flor RN * Does person have difficulty doing errands alone? Answer Date of Assessment Author Yes 02/19/2025 11:00 PM Kareem Flor RN documented as of this encounter Mental Status * Does person have difficulty concentrating/remembering/making decisions? Answer Entry Date Author No 02/19/2025 11:00 PM Kareem Flor RN documented in this encounter Plan of Treatment Upcoming Encounters Date Type Department Care Team (Late st Contact Info) Description 05/18/2025 10:15 AM GALLEY HAND Office Visit [facility] - Vascular Surgery [address] [place] [address], [place] [id number] Mj Decker MD [address] [address] 06/15/2025 12:00 PM GALLEY HAND Office Visit [facility] - Neurology [address] [place] [address], [place] [id number] Wilner Hooks MD [address] [place] [address] [place] [address] documented as of this encounter Results * XR Thoracic Spine 2Vw (04/13/2025 11:32 AM GALLEY HAND) Anatomical Region Laterality Modality Spine Radiographic Jaz ging 04/13/2025 11:3 9 AM GALLEY HAND Impressions 04/13/2025 2:47 PM GALLEY HAND IMPRESSION: 1.Multiple known fractures of the thoracic and lumbar spine are better delineated on prior CT. L1 compression fracture appears similar to minimally progressed from prior. 2.Multilevel degenerative disc and joint disease. Report dictated by Andrew Hernandez MD, (residential child care counselor). > Dictated by Science Intern I, Vivi Donovan MD have personally reviewed and interpreted this examination/study. > Interpreting Provider: Vivi Donovan MD on 04/13/2025 2:47 PM Narrative 04/13/2025 2:47 PM GALLEY HAND PROCEDURE: XR THORACIC SPINE 2VW, XR LUMBAR SPINE 2 OR 3VW, DATE/TIME OF EXAM: 04/13/2025 11:32 AM, LOCATION [facility] INDICATION: M54.6: Thoracic back pain, unspecified back pain laterality, unspecified chronicity ADDITIONAL CLINICAL INFORMATION: Ordering Provider Reason For Exam: back pain Technologist Note: Additional: COMPARISON: Radiographs 03/16/2025. CT 02/15/2025. FINDINGS: Bones appear demineralized. THORACIC SPINE: T1 and T2 vertebral bodies are normal visualized secondary to overlying shoulders. Mild anterior wedging of T1 and T2 is better delayed on prior CT. The vertebral bodies are normally aligned. Multilevel degenerative disc and joint disease. Atherosclerotic vascular calcifications. LUMBAR SPINE: Redemonstration of wedge compression fracture of L1. This appears similar to minimally progressed from prior. Right L2 and L3 transverse process fractures are better delineated on prior CT. Levocurvature of the lumbar spine. Grade 1 retrolisthesis of L1 on L2, L2-L3, and L3-L4. Multilevel degenerative disc and joint disease. Atherosclerotic vascular calcifications. Contrast opacifies the bladder and the bilateral renal pelvis. Procedure Note Vivi Donovan MD - 04/13/2025 PROCEDURE: XR THORACIC SPINE 2VW, XR LUMBAR SPINE 2 OR 3VW, DATE/TIMEOF EXAM: 04/13/2025 11:32 AM, LOCATION [facility] INDICATION: M54.6: Thoracic back pain, unspecified back pain laterality, unspecified chronicity ADDITIONAL CLINICAL INFORMATION: Ordering Provider Reason For Exam: back pain Technologist Note: Additional: COMPARISON: Radiographs 03/16/2025. CT 02/15/2025. FINDINGS: Bones appear demineralized. THORACIC SPINE: T1 and T2 vertebral bodies are normal visualized secondary to overlying shoulders. Mild anterior wedging of T1 and T2 is better delayed on prior CT. The vertebral bodies are normally aligned. Multilevel degenerativedisc and joint disease. Atherosclerotic vascular calcifications. LUMBAR SPINE: Redemonstration of wedge compression fracture of L1. This appearssimilar to minimally progressed from prior. Right L2 and L3 transverse process fractures are better delineated on prior CT. Levocurvature of the lumbar spine. Grade 1 retrolisthesis of L1 on L2, L2-L3, and L3-L4. Multilevel degenerative disc and joint disease. Atherosclerotic vascular calcifications. Contrast opacifies the bladderand the bilateral renal pelvis. IMPRESSION: 1.Multiple known fractures of the thoracic and lumbar spine are better delineated on prior CT. L1 compression fracture appears similar to minimally progressed from prior. 2.Multilevel degenerative disc and joint disease. Report dictated by Andrew Hernandez MD, (residential child care counselor). > Dictated by Science Intern I, Vivi Donovan MD have personally reviewed and interpreted this examination/study. > Interpreting Provider: Vivi Donovan MD on 04/13/2025 2:47 PM us Sandra Ernandez PA-C DIAGNOSTIC IMAGING ORDERABL ES Final Result * XR Lumbar Spine 2 or 3Vw (04/13/2025 11:32 AM GALLEY HAND) Anatomical Region Laterality Modality Spine Radiographic Jaz ging 04/13/2025 11:3 9 AM GALLEY HAND Impressions 04/13/2025 2:47 PM GALLEY HAND IMPRESSION: 1.Multiple known fractures of the thoracic and lumbar spine are better delineated on prior CT. L1 compression fracture appears similar to minimally progressed from prior. 2.Multilevel degenerative disc and joint disease. Report dictated by Andrew Hernandez MD, (residential child care counselor). > Dictated by Science Intern I, Vivi Donovan MD have personally reviewed and interpreted this examination/study. > Interpreting Provider: Vivi Donovan MD on 04/13/2025 2:47 PM Narrative 04/13/2025 2:47 PM GALLEY HAND PROCEDURE: XR THORACIC SPINE 2VW, XR LUMBAR SPINE 2 OR 3VW, DATE/TIME OF EXAM: 04/13/2025 11:32 AM, LOCATION [facility] INDICATION: M54.6: Thoracic back pain, unspecified back pain laterality, unspecified chronicity ADDITIONAL CLINICAL INFORMATION: Ordering Provider Reason For Exam: back pain Technologist Note: Additional: COMPARISON: Radiographs 03/16/2025. CT 02/15/2025. FINDINGS: Bones appear demineralized. THORACIC SPINE: T1 and T2 vertebral bodies are normal visualized secondary to overlying shoulders. Mild anterior wedging of T1 and T2 is better delayed on prior CT. The vertebral bodies are normally aligned. Multilevel degenerative disc and joint disease. Atherosclerotic vascular calcifications. LUMBAR SPINE: Redemonstration of wedge compression fracture of L1. This appears similar to minimally progressed from prior. Right L2 and L3 transverse process fractures are better delineated on prior CT. Levocurvature of the lumbar spine. Grade 1 retrolisthesis of L1 on L2, L2-L3, and L3-L4. Multilevel degenerative disc and joint disease. Atherosclerotic vascular calcifications. Contrast opacifies the bladder and the bilateral renal pelvis. Procedure Note Vivi Donovan MD - 04/13/2025 PROCEDURE: XR THORACIC SPINE 2VW, XR LUMBAR SPINE 2 OR 3VW, DATE/TIMEOF EXAM: 04/13/2025 11:32 AM, LOCATION [facility] INDICATION: M54.6: Thoracic back pain, unspecified back pain laterality, unspecified chronicity ADDITIONAL CLINICAL INFORMATION: Ordering Provider Reason For Exam: back pain Technologist Note: Additional: COMPARISON: Radiographs 03/16/2025. CT 02/15/2025. FINDINGS: Bones appear demineralized. THORACIC SPINE: T1 and T2 vertebral bodies are normal visualized secondary to overlying shoulders. Mild anterior wedging of T1 and T2 is better delayed on prior CT. The vertebral bodies are normally aligned. Multilevel degenerativedisc and joint disease. Atherosclerotic vascular calcifications. LUMBAR SPINE: Redemonstration of wedge compression fracture of L1. This appearssimilar to minimally progressed from prior. Right L2 and L3 transverse process fractures are better delineated on prior CT. Levocurvature of the lumbar spine. Grade 1 retrolisthesis of L1 on L2, L2-L3, and L3-L4. Multilevel degenerative disc and joint disease. Atherosclerotic vascular calcifications. Contrast opacifies the bladderand the bilateral renal pelvis. IMPRESSION: 1.Multiple known fractures of the thoracic and lumbar spine are better delineated on prior CT. L1 compression fracture appears similar to minimally progressed from prior. 2.Multilevel degenerative disc and joint disease. Report dictated by Andrew Hernandez MD, (residential child care counselor). > Dictated by Science Intern I, Vivi Donovan MD have personally reviewed and interpreted this examination/study. > Interpreting Provider: Vivi Donovan MD on 04/13/2025 2:47 PM Sandra Ernandez PA-C DIAGNOSTIC IMAGING ORDERABL ES Final Result documented in this encounter Visit Diagnoses Diagnosis Thoracic back pain, unspecified back pain laterality, unspecified chronicity- Primary Low back pain, unspecified back pain laterality, unspecified chronicity, unspecified whether sciatica present Thoracic back pain, unspecified back pain laterality, unspecified chronicity Low back pain, unspecified back pain laterality, unspecified chronicity, unspecified whether sciatica present documented in this encounter
--- OUTSIDE RECORDS SUMMARY | 2025-04-19 18:21 | XMS_ITS | Encounter Summary ---
Author Organization [facility] Address [address] [facility] [address] [place] [address] Care Team Providers Care Parole Supervisor Name Role Phone Unavailable Primary Care Provider Unavailabl e Encounter Details Date Type Department Care Team (Late st Contact Info) Description 02/15/2025 Ophth Exam [facility] - Ophthalmology [address] [place] [phone] Roe Castellon MD [address] [place] [address] Social History Tobacco Use Types Packs/Day Years Used Date Smoking Tobacco: Unknown Alcohol Use Standard Drinks/Week Comments Never 0 [...] and heating? Patient unable to answer 02/19/2025 [facility] [place] [employer] [facility] Occupat ional Health - Occupational Stress [...] any time in the past 12 m [facility], were you homeless or living in a alf (including now)? Patient unable to answer 02/19/2025 Comments Unknown Sex and Gender Information Value Date Recorded Sex Assigned at Not on file Legal Sex Female 11:17 AM CDT Gender Identity Not on file Sexual Orientation Not on file documented as of this encounter Functional Status * Question Answer Date of Assessment Author Q1: How often do you have a drink containing alcohol? Never 02/15/2025 4:57 PM Jo-Ann Bucio RN Q2: How many drinks containing alcohol do you have on a typical day when you are drinking? Patient does not drink 02/15/2025 4:57 PM Jo-Ann Bucio RN Q3: How often do you have six or more drinks on one occasion? Never 02/15/2025 4:57 PM Jo-Ann Bucio RN * AUDIT-C Score Answer Date of Assessment Author 0 02/15/2025 4:57 PM Devante Bucio RN documented as of this encounter Plan of Treatment Upcoming Encounters Date Type Department Care Team (Late st Contact Info) Description 05/18/2025 10:15 AM ELECTROLYSIS OPERATOR Office Visit [facility] - Vascular Surgery [facility] [facility], [place] [phone] Mj Decker MD [address] [phone] 06/15/2025 12:00 PM ELECTROLYSIS OPERATOR Office Visit [facility] - Neurology [address] [place] [address], [place] [phone] Wilner Hooks MD [address] [place] [address] [place] [address] documented as of this encounter Visit Diagnoses Not on filedocumented in this encounter Additional Health Concerns Infection Onset Date Last Indicated Resolved Time COVID-19 Under Investigation 02/22/2025 02/22/2025 02/22/2025 2:09 PM CDT documented as of this encounter
--- OUTSIDE RECORDS SUMMARY | 2025-04-19 18:21 | XMS_ITS | Encounter Summary ---
Author Organization [facility] Address [address] [facility] [place] [address] Care Team Providers Care Title Search Manager Name Role Phone Unavailable Primary Care Provider Unavailabl e Encounter Details Date Type Department Care Team (Late st Contact Info) Description 02/17/2025 Ophth Exam [facility] - Ophthalmology [address] [place] [phone] Roe Castellon MD [address] [place] [address] Social History Tobacco Use Types Packs/Day Years [...] and heating? Patient unable to answer 02/19/2025 [facility] [place] of Occupat ional Health - Occupational Stress [...] any time in the past 12 m [facility], were you homeless or living in a jail (including now)? 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 Visit [facility] - Vascular Surgery [address] [place] [address], [place] [phone] Mj Decker MD [address] [phone] 06/15/2025 12:00 PM WAREHOUSE DELIVERY DRIVER Office Visit [facility] - Neurology [address] [place] [address], [place] [phone] Wilner Hooks MD [address] [place] [address] [address] [place] [address] documented as of this encounter Visit Diagnoses Not on filedocumented in this encounter Additional Health Concerns Infection Onset Date Last Indicated Resolved Time COVID-19 Under Investigation 02/22/2025 02/22/2025 02/22/2025 2:09 PM CDT documented as of this encounter
--- OUTSIDE RECORDS SUMMARY | 2025-04-19 18:22 | XMS_ITS | Clinical Summary ---
Author Organization [facility] Address [address] [place] [address] Care Team Providers Care Change Attendant Name Role Phone Unavailable Primary Care Provider Unavailabl e Source Comments [facility],non-owned Affiliates and Associated Physician Practices is amultiple site organization consisting of ambulatory clinics and hospital sitesin [place], [place], [place] and [place]. This disclosure is being madepursuant to the Care Everywhere program and may not contain all information available regarding this patient. Last updated 18[employer] Allergies No known active allergies Medications * Be aware that medications may not be up to date on this document. Alwaysverify current medications with the patient. atorvastatin (Lipitor) 20 MG tablet Take 1 (one) tablet by mouth at bedtime 05/14/19 25 Active baclofen (Lioresal) 10 MG tablet Take 0.5 (one-half) tablet by mouth 2 times daily 12/25/19 25 Active carvedilol (Coreg) 12.5 MG tablet Take 1 (one) tablet by mouth 2 times daily with morning and evening meal 12/14/19 25 Active dantrolene (Dantrium) 25 MG capsule Take 1 (one) capsule by mouth 2 times daily 12/26/19 25 Active FLUoxetine (PROzac) 20 MG capsule Take 1 (one) capsule by mouth once daily 12/10/19 25 Active gabapentin (Neurontin) 300 MG capsule Take 1 (one) capsule by mouth 2 times daily 12/26/19 25 Active hydroCHLOROthi azide (Hydrodiuril) 25 MG tablet Take 1 (one) tablet by mouth once daily 11/13/19 25 Active levothyroxine (Synthroid) 150 MCG tablet Take 1 (one) tablet by mouth daily before breakfast 12/22/19 25 Active lisinopril (Prinivil; Zestril) 10 MG tablet Take 1 (one) tablet by mouth once daily 12/31/19 25 Active omeprazole (PriLOSEC) 20 MG capsule Take 1 (one) capsule by mouth daily before breakfast 12/14/19 25 Active pantoprazole EC (Protonix) 40 MG tablet Take 1 (one) tablet by mouth once daily 01/31/20 25 Active apixaban (Eliquis) 5 MG tabletIndicati ons:Cerebrovas cular Accident Take 1 (one) tablet by mouth 2 times daily Reasons: Cerebrovascular Accident or Stroke 02/28/20 Active aspirin (Aspirin) 81 MG chew tablet Take 1 (one) tablet by mouth once daily (chew and swallow) 02/29/20 Active levETIRAcetam (Keppra) 500 MG tablet Take 1 (one) tablet by mouth 2 times daily 02/28/20 Active oxyCODONE, immediate release, (Roxicodone) 5 MG tabletIndicati ons:Closed fracture of proximal phalanx of toe of right foot Take 1 (one) tablet by mouth every 4 hours as needed 12 tablet 02/28/20 025 Discontin ued(List Clean-Up) Active Problems Problem Noted Date Diagnosed Date History of CVA (cerebrovascular accident) 2024 Assessment & Plan (02/27/2025 12:57 PM CDT): Hx CVA with right weakness 2010, no new stroke and at baseline per neuro and family Continue aspirin Outpatient f/u with stroke, message already sent to mop handle assembler Assessment & Plan (02/26/2025 8:30 AM CDT): Hx CVA with right weakness 2010, no new stroke and at baseline per neuro and family Continue aspirin Outpatient f/u with stroke, message already sent to mop handle assembler Assessment & Plan (02/25/2025 9:24 PM CDT): Hx CVA with right weakness 2010, no new stroke and at baseline per neuro and family Continue aspirin Outpatient f/u with stroke, message already sent to mop handle assembler Depression 02/25/2025 Assessment & Plan (02/27/2025 12:57 PM CDT): Continue prozac 20 mg daily Assessment & Plan (02/26/2025 8:30 AM CDT): Continue prozac 20 mg daily Assessment & Plan (02/25/2025 9:24 PM CDT): Continue prozac 20 mg daily DM (diabetes mellitus) 02/25/2025 Assessment & Plan (02/27/2025 12:57 PM CDT): SSI + accuchecks Assessment & Plan (02/26/2025 8:30 AM CDT): SSI + accuchecks Assessment & Plan (02/25/2025 9:24 PM CDT): SSI + accuchecks Seizures 02/25/2025 Assessment & Plan (02/27/2025 12:57 PM CDT): Hx CVA with right weakness 2010, no new stroke and at baseline per neuro and family Continue aspirin Outpatient f/u with stroke, message already sent to mop handle assembler Assessment & Plan (02/26/2025 8:30 AM CDT): Hx CVA with right weakness 2010, no new stroke and at baseline per neuro and family Continue aspirin Outpatient f/u with stroke, message already sent to mop handle assembler Assessment & Plan (02/25/2025 9:24 PM CDT): Hx CVA with right weakness 2010, no new stroke and at baseline per neuro and family Continue aspirin Outpatient f/u with stroke, message already sent to mop handle assembler Closed nondisplaced fracture of right calcaneus 02/25/2025 Assessment & Plan (02/27/2025 12:57 PM CDT): Managed non-operatively, did not require chest tube Pulmonary hygiene, IS, OOBAT NWB LLE in splint Multimodal pain regimen PT/OT, rec SNF Assessment & Plan (02/26/2025 8:30 AM CDT): Managed non-operatively, did not require chest tube Pulmonary hygiene, IS, OOBAT NWB LLE in splint Multimodal pain regimen PT/OT, rec SNF Assessment & Plan (02/25/2025 9:24 PM CDT): Managed non-operatively, did not require chest tube Pulmonary hygiene, IS, OOBAT NWB LLE in splint Multimodal pain regimen PT/OT, rec SNF Closed fracture of upper end of left fibula 02/02 Assessment & Plan (02/27/2025 12:57 PM CDT): Managed non-operatively, did not require chest tube Pulmonary hygiene, IS, OOBAT NWB LLE in splint Multimodal pain regimen PT/OT, rec SNF Assessment & Plan (02/26/2025 8:30 AM CDT): Managed non-operatively, did not require chest tube Pulmonary hygiene, IS, OOBAT NWB LLE in splint Multimodal pain regimen PT/OT, rec SNF Assessment & Plan (02/25/2025 9:24 PM CDT): Managed non-operatively, did not require chest tube Pulmonary hygiene, IS, OOBAT NWB LLE in splint Multimodal pain regimen PT/OT, rec SNF Closed fracture of proximal phalanx of toe of ri ght foot 02/25/2025 Assessment & Plan (02/27/2025 12:57 PM CDT): Managed non-operatively, did not require chest tube Pulmonary hygiene, IS, OOBAT NWB LLE in splint Multimodal pain regimen PT/OT, rec SNF Assessment & Plan (02/26/2025 8:30 AM CDT): Managed non-operatively, did not require chest tube Pulmonary hygiene, IS, OOBAT NWB LLE in splint Multimodal pain regimen PT/OT, rec SNF Assessment & Plan (02/25/2025 9:24 PM CDT): Managed non-operatively, did not require chest tube Pulmonary hygiene, IS, OOBAT NWB LLE in splint Multimodal pain regimen PT/OT, rec SNF Hypothyroidism 02/25/2025 Assessment & Plan (02/27/2025 12:57 PM CDT): Continue synthroid Assessment & Plan (02/26/2025 8:30 AM CDT): Continue synthroid Assessment & Plan (02/25/2025 9:24 PM CDT): Continue synthroid Nasal bone fx-closed 02/25/2025 Assessment & Plan (02/27/2025 12:57 PM CDT): Plastics consulted, f/u if needed Assessment & Plan (02/26/2025 8:30 AM CDT): Plastics consulted, f/u if needed Assessment & Plan (02/25/2025 9:24 PM CDT): Plastics consulted, f/u if needed Closed fracture of sternum, unspecified portion of sternum, initial encounter 02/15/2025 Assessment & Plan (02/27/2025 12:57 PM CDT): Managed non-operatively, did not require chest tube Pulmonary hygiene, IS, OOBAT NWB LLE in splint Multimodal pain regimen PT/OT, rec SNF Assessment & Plan (02/26/2025 8:30 AM CDT): Managed non-operatively, did not require chest tube Pulmonary hygiene, IS, OOBAT NWB LLE in splint Multimodal pain regimen PT/OT, rec SNF Assessment & Plan (02/25/2025 9:24 PM CDT): Managed non-operatively, did not require chest tube Pulmonary hygiene, IS, OOBAT NWB LLE in splint Multimodal pain regimen PT/OT, rec SNF Trauma 02/15/2025 Assessment & Plan (02/27/2025 12:57 PM CDT): Managed non-operatively, did not require chest tube Pulmonary hygiene, IS, OOBAT NWB LLE in splint Multimodal pain regimen PT/OT, rec SNF Assessment & Plan (02/26/2025 8:30 AM CDT): Managed non-operatively, did not require chest tube Pulmonary hygiene, IS, OOBAT NWB LLE in splint Multimodal pain regimen PT/OT, rec SNF Assessment & Plan (02/25/2025 9:24 PM CDT): Managed non-operatively, did not require chest tube Pulmonary hygiene, IS, OOBAT NWB LLE in splint Multimodal pain regimen PT/OT, rec SNF Traumatic pneumothorax, initial encounter 2024 Assessment & Plan (02/27/2025 12:57 PM CDT): Managed non-operatively, did not require chest tube Pulmonary hygiene, IS, OOBAT NWB LLE in splint Multimodal pain regimen PT/OT, rec SNF Assessment & Plan (02/26/2025 8:30 AM CDT): Managed non-operatively, did not require chest tube Pulmonary hygiene, IS, OOBAT NWB LLE in splint Multimodal pain regimen PT/OT, rec SNF Assessment & Plan (02/25/2025 9:24 PM CDT): Managed non-operatively, did not require chest tube Pulmonary hygiene, IS, OOBAT NWB LLE in splint Multimodal pain regimen PT/OT, rec SNF Carotid artery dissection 02/15/2025 Assessment & Plan (02/27/2025 12:57 PM CDT): Per vascular sgy plan of care on 02/20: CTA reviewed. Redemonstration of previously noted intimal flap vs carotid web with appearance concerning for possible thrombus. Recommend anticoagulation (DOAC okay) with f/u in 1 month in clinic. Will reimage and re-assess at that time. Assessment & Plan (02/26/2025 8:30 AM CDT): Per vascular sgy plan of care on 02/20: CTA reviewed. Redemonstration of previously noted intimal flap vs carotid web with appearance concerning for possible thrombus. Recommend anticoagulation (DOAC okay) with f/u in 1 month in clinic. Will reimage and re-assess at that time. Assessment & Plan (02/25/2025 8:50 PM CDT): Per vascular sgy plan of care on 02/20: CTA reviewed. Redemonstration of previously noted intimal flap vs carotid web with appearance concerning for possible thrombus. Recommend anticoagulation (DOAC okay) with f/u in 1 month in clinic. Will reimage and re-assess at that time. Closed fracture of lumbar ve rtebra, unspecified fracture morphology, unspecified lumbar vertebral level, initial encounter 02/15/2025 Assessment & Plan (02/27/2025 12:57 PM CDT): Managed nonoperatively, C-collar now cleared C-spine precautions no longer necessary Assessment & Plan (02/26/2025 8:30 AM CDT): Managed nonoperatively, C-collar now cleared C-spine precautions no longer necessary Assessment & Plan (02/25/2025 8:50 PM CDT): Managed nonoperatively, C-collar now cleared C-spine precautions no longer necessary Closed fracture of transvers e process of cervical vertebra, initial encounter 02/15/2025 Assessment & Plan (02/27/2025 12:57 PM CDT): Managed nonoperatively, C-collar now cleared C-spine precautions no longer necessary Assessment & Plan (02/26/2025 8:30 AM CDT): Managed nonoperatively, C-collar now cleared C-spine precautions no longer necessary Assessment & Plan (02/25/2025 8:50 PM CDT): Managed nonoperatively, C-collar now cleared C-spine precautions no longer necessary Multiple rib fractures involving four or more ri bs 02/15/2025 Assessment & Plan (02/27/2025 12:57 PM CDT): Managed non-operatively, did not require chest tube Pulmonary hygiene, IS, OOBAT NWB LLE in splint Multimodal pain regimen PT/OT, rec SNF Assessment & Plan (02/26/2025 8:30 AM CDT): Managed non-operatively, did not require chest tube Pulmonary hygiene, IS, OOBAT NWB LLE in splint Multimodal pain regimen PT/OT, rec SNF Assessment & Plan (02/25/2025 9:24 PM CDT): Managed non-operatively, did not require chest tube Pulmonary hygiene, IS, OOBAT NWB LLE in splint Multimodal pain regimen PT/OT, rec SNF Encounters Date Type Department Care Team Description 04/13/2025 12:15 PM [employer] Office Visit [facility] - Orthopedics [address] [place] [phone] Sandra Ernandez PA-C Neck pain (Primary Dx); Closed compression fracture of body of L1 vertebra (HCC); Compression fracture of T1 vertebra with routine healing 04/13/2025 11:00 AM [employer] Office Visit [facility] - Orthopedics [address] [place] [phone] Devonte Pro MD Closed torus fracture of proximal end of left fibula with routine healing, subsequent encounter (Primary Dx) 04/13/2025 10:58 AM [employer] - 04/13/2025 11:59 PM [employer] Hospital Encounter [facility] DIAGNOSTIC RAD [address] [address] [facility] [phone] Sandra Ernandez PA-C Discharge Disposition: Home or Self Care 04/13/2025 10:58 AM [employer] - 04/13/2025 11:59 PM [employer] Hospital Encounter [facility]STIC RAD [facility] [address] [facility] [address] Sandra Ernandez PA-C Discharge Disposition: Home or Self Care 04/13/2025 10:13 AM [employer] - 04/13/2025 10:57 AM [employer] Hospital Encounter [facility]ST[facility] [address] [facility] [address] Devonte Pro MD Discharge Disposition: Home or Self Care 04/13/2025 10:13 AM [employer] - 04/13/2025 10:57 AM [employer] Hospital Encounter [facility] [address] [facility] [place] [address] Devonte Pro MD Discharge Disposition: Home or Self Care 04/13/2025 10:13 AM [employer] - 04/13/2025 10:57 AM [employer] Hospital Encounter [facility] [address] [facility] [place] [address] Devonte Pro MD Discharge Disposition: Home or Self Care 04/13/2025 10:00 AM [employer] - 04/13/2025 10:12 AM [employer] Hospital Encounter [facility] CAT SC[facility] [address] [place] [address] Cj Power MD Discharge Disposition: Home or Self Care 04/13/2025 Orders Only [facility] [address] [place] [phone] Sandra Ernandez PA-C Thoracic back pain, unspecified back pain laterality, unspecified chronicity ; Low back pain, unspecified back pain laterality, unspecified chronicity, unspecified whether sciatica present 04/13/2025 Travel 04/06/2025 Orders Only [facility] [address] [place] [phone] Devonte Pro MD Closed torus fracture of proximal end of left fibula with routine healing, subsequent encounter ; Closed nondisplaced fracture of right calcaneus with routine healing, unspecified portion of calcaneus, subsequent encounter; Closed displaced fracture of proximal phalanx of right great toe with routine healing, subsequent encounter 03/27/2025 Travel 03/16/2025 1:30 PM [employer] Office Visit [facility] - Orthopedics [facility] [address], [place] [address] Sandra Ernandez PA-C Closed compression fracture of body of L1 vertebra (HCC) (Primary Dx); Compression fracture of T12 vertebra with routine healing, subsequent encounter 03/16/2025 11:47 AM [employer] - 03/16/2025 11:59 PM [employer] Hospital Encounter [facility] DIAGNOSTIC RAD [address] [address] [facility] [place] [address] Sandra Ernandez PA-C Discharge Disposition: Home or Self Care 03/16/2025 11:47 AM [employer] - 03/16/2025 11:59 PM [employer] Hospital Encounter [facility] DIAGNOSTIC RAD [address] [address] [facility] [place] [address] Sandra Ernandez PA-C Discharge Disposition: Home or Self Care 03/16/2025 11:47 AM [employer] - 03/16/2025 11:59 PM [employer] Hospital Encounter [facility]AGNOSTIC RAD [facility] [address] [facility] [place] [address] Sandra Ernandez PA-C Discharge Disposition: Home or Self Care 03/16/2025 10:01 AM [employer] - 03/16/2025 11:46 AM [employer] Hospital Encounter [facility]STIC RAD [facility] [address] [facility] [place] [address] Devonte Pro MD Discharge Disposition: Home or Self Care 03/16/2025 10:01 AM [employer] - 03/16/2025 11:46 AM [employer] Hospital Encounter [facility]IC RAD [facility] [address] [facility] [place] [address] Devonte Pro MD Discharge Disposition: Home or Self Care 03/16/2025 10:01 AM [employer] - 03/16/2025 11:46 AM [employer] Hospital Encounter [facility] DIAGNOSTIC RAD [facility] [address] [facility] [place] [address] Devonte Pro MD Discharge Disposition: Home or Self Care 03/16/2025 9:45 AM [employer] Office Visit [facility] - Orthopedics [address] [place] [phone] Devonte Pro MD McCutchen, Kailey J, MANAGER EXCHANGE-SOFTWARE MANAGER Closed torus fracture of proximal end of left fibula with routine healing, subsequent encounter (Primary Dx); Closed nondisplaced fracture of right calcaneus with routine healing, unspecified portion of calcaneus, subsequent encounter; Closed displaced fracture of proximal phalanx of right great toe with routine healing, subsequent encounter 03/16/2025 Orders Only [facility] [address] [place] [phone] Sandra Ernandez, ANA Neck pain ; Back pain, unspecified back location, unspecified back pain laterality, unspecified chronicity 03/16/2025 Travel 03/13/2025 Orders Only [facility]ics [address] [place] [phone] Devonte Pro MD Other closed fracture of proximal end of left fibula, initial encounter ; Closed nondisplaced fracture of right calcaneus, unspecified portion of calcaneus, initial encounter; Closed fracture of proximal phalanx of toe of right foot; Closed nondisplaced fracture of left calcaneus, unspecified portion of calcaneus, initial encounter 02/17/2025 Ophth Exam [facility] Ophthal[facility] [address] [place] [phone] Roe Castellon MD 02/15/2025 11:28 AM CDT - 02/27/2025 5:11 PM CDT Hospital Encounter [facility] [address] [place] [phone] Cyndi Hernandez MD Behr, MD Kal Chaudhry Chad, MD Fernelius, Joshua, MD Syed, Adri Lagos MD Internal Medicine Discharge Disposition: Shelter Facility 02/15/2025 Ophth Exam [facility] - Ophthalmology [address] [place] [phone] Roe Castellon MD 02/15/2025 Travel from Last 3 Months Social History Tobacco Use Types Packs/Day Years Used Date Smoking Tobacco: Former Cigarettes Tobacco Cessation:Counseling Given: Not Answered Alcohol Use Standard Drinks/Week Comments Never 0 [...] and heating? Patient unable to answer 02/19/2025 [facility] - Occupational Stress Questionnaire Answer Date Recorded [...] any time in the past 12 m [facility], were you homeless or living in a detention (including now)? Patient unable to answer 02/19/2025 Comments No Sex and Gender Information Value Date Recorded Sex Assigned at Not on file Legal Sex Female 11:17 AM CDT Gender Identity Not on file Sexual Orientation Not on file Last Filed Vital Signs Vital Sign Reading Time Taken Comments Blood Pressure 131/96 02/27/2025 11:55 AM CDT Pulse 87 02/27/2025 1:09 PM CDT Temperature 36.6 C (97.9 F) 02/27/2025 11:55 AM CDT Respiratory Rate 16 02/27/2025 1:09 PM CDT Oxygen Saturation 95% 02/27/2025 1:09 PM CDT Inhaled Oxygen Concentration - - Weight 61.7 kg (136 lb) 04/13/2025 11:32 AM [employer] Height 170.2 cm (5' 7) 02/15/2025 11:28 AM CDT Body Mass Index 21.3 02/15/2025 11:28 AM CDT Plan of Treatment Upcoming Encounters Date Type Department Care Team (Late st Contact Info) Description 05/18/2025 10:15 AM [employer] Office Visit [facility] - [facility] [address] [place] [address], [facility] [place] [address] Mj Decker MD [address] [phone] 06/15/2025 12:00 PM [employer] Office Visit [facility]rology [address] [place] [address], [facility] [place] [address] Wilner Hooks MD [address] [place] [phone] Health Maintenance Due Date Last Done Comments BONE DENSITY TESTING 1950 MEDICARE AWV 12 MONTHS 1950 HEPATITIS C SCREENING 06/08/1966 DTAP/TDAP/TD VACCINES (1 - Tdap) 1967 PNEUMOCOCCAL VACCINE 50+ (1 of 2 - PCV) 1967 ZOSTER VACCINE (1 of 2) 1998 Respiratory Syncytial Virus (RSV) Vaccine Pt: or over 60 yrs (1 - 1-dose 75+ series) 2023 DEPRESSION SCREENING 05/04/2024 DIABETES - URINE PROTEIN SCREENING 05/04/2024 COVID-19 VACCINE (1 - 2024- season) 2025 INFLUENZA VACCINE (#1) 2025 04/14/2013 DIABETES RETINOPATHY SCREENING 02/25/2025 DIABETES-FOOT EXAM WITH MONOFILAMENT 02/25/2025 DIABETES-HGB A1C 08/17/2025 02/16/2025 DIABETES-SERUM CREATININE 04/13/20262024, 02/22/2025, 02/21/2025, Additional history exists HEPATITIS B VACCINE Aged Out No longe r eligible based on patient's age to complete this topic HIB VACCINE Aged Out No longer eligi ble based on patient's age to complete this topic HPV VACCINE Aged Out No longer eligi ble based on patient's age to complete this topic MENINGOCOCCAL (Group B) VACCINE SHARED DECISION-MAKING Aged Out No longer eligible based on patient's age to complete this topic MENINGOCOCCAL GROUPS A/C/Y/W VACCINE Aged Out No longer eligible based on patient's age to complete this topic Procedures Procedure Name Priority Date/Time Associated Diagnosis Comments XR CALCANEUS LEFT 2VW OR MORE Routine 04/13/2025 11:33 AM [employer] Closed nondisplaced fracture of right calcaneus with routine healing, unspecified portion of calcaneus, subsequent encounter XR FOOT LEFT 3VW OR MORE Routine 04/13/2025 11:33 AM [employer] Closed displaced fracture of proximal phalanx of right great toe with routine healing, subsequent encounter XR TIBIA FIBULA LEFT 2VW Routine 04/13/2025 11:33 AM [employer] Closed torus fracture of proximal end of left fibula with routine healing, subsequent encounter XR THORACIC SPINE 2VW Routine 04/13/2025 11:32 AM [employer] Thoracic back pain, unspecified back pain laterality, unspecified chronicity XR LUMBAR SPINE 2 OR 3VW Routine 04/13/2025 11:32 AM [employer] Low back pain, unspecified back pain laterality, unspecified chronicity, unspecified whether sciatica present CT ANGIO BRAIN AND NECK Routine 04/13/2025 10:32 AM [employer] Carotid artery dissection (HCC) ISTAT CREATININE Routine 04/13/2025 10:1 6 AM [employer] XR THORACIC SPINE 2VW Routine 03/16/2025 12:23 PM [employer] Back pain, unspecified back location, unspecified back pain laterality, unspecified chronicity XR LUMBAR SPINE 2 OR 3VW Routine 03/16/2025 12:23 PM [employer] Back pain, unspecified back location, unspecified back pain laterality, unspecified chronicity XR CERVICAL SPINE 2 OR 3VW Routine 03/16/2025 12:23 PM [employer] Neck pain XR FOOT RIGHT 3VW OR MORE Routine 03/16/2025 10:45 AM [employer] Closed fracture of proximal phalanx of toe of right foot XR CALCANEUS LEFT 2VW OR MORE Routine 03/16/2025 10:44 AM [employer] Closed nondisplaced fracture of left calcaneus, unspecified portion of calcaneus, initial encounter XR TIBIA FIBULA LEFT 2VW Routine 03/16/2025 10:44 AM [employer] Other closed fracture of proximal end of left fibula, initial encounter GLUCOSE - POINT OF CARE Routine 02/27/2025 11:57 AM CDT GLUCOSE - POINT OF CARE Routine 02/27/2025 8:11 AM CDT GLUCOSE - POINT OF CARE Routine 02/26/2025 9:25 PM CDT GLUCOSE - POINT OF CARE Routine 02/26/2025 5:13 PM CDT GLUCOSE - POINT OF CARE Routine 02/26/2025 12:38 PM CDT GLUCOSE - POINT OF CARE Routine 02/26/2025 8:17 AM CDT GLUCOSE - POINT OF CARE Routine 02/25/2025 9:34 PM CDT GLUCOSE - POINT OF CARE Routine 02/25/2025 4:34 PM CDT GLUCOSE - POINT OF CARE Routine 02/25/2025 12:15 PM CDT GLUCOSE - POINT OF CARE Routine 02/25/2025 10:59 AM CDT GLUCOSE - POINT OF CARE Routine 02/25/2025 8:19 AM CDT XR CHEST 1VW PORTABLE Routine 02/25/2025 6:51 AM CDT Multiple rib fractures involving four or more ribs Traumatic pneumothorax, initial encounter GLUCOSE - POINT OF CARE Routine 02/24/2025 10:15 PM CDT GLUCOSE - POINT OF CARE Routine 02/24/2025 8:46 PM CDT GLUCOSE - POINT OF CARE Routine 02/24/2025 4:50 PM CDT GLUCOSE - POINT OF CARE Routine 02/24/2025 12:23 PM CDT XR CHEST 1VW PORTABLE Routine 02/24/2025 11:26 AM CDT Multiple rib fractures involving four or more ribs GLUCOSE - POINT OF CARE Routine 02/24/2025 7:15 AM CDT GLUCOSE - POINT OF CARE Routine 02/24/2025 6:51 AM CDT GLUCOSE - POINT OF CARE Routine 02/24/2025 12:14 AM CDT GLUCOSE - POINT OF CARE Routine 02/23/2025 3:42 PM CDT GLUCOSE - POINT OF CARE Routine 02/23/2025 10:57 AM CDT GLUCOSE - POINT OF CARE Routine 02/23/2025 8:42 AM CDT PHOSPHORUS BLOOD STAT 02/23/2025 7:51 AM CDT MAGNESIUM BLOOD STAT 02/23/2025 7:51 AM CDT GLUCOSE - POINT OF CARE Routine 02/23/2025 4:38 AM CDT GLUCOSE - POINT OF CARE Routine 02/23/2025 12:27 AM CDT GLUCOSE - POINT OF CARE Routine 02/22/2025 4:01 PM CDT CBC W AUTO DIFFERENTIAL Routine 02/22/2025 3:02 PM CDT CALCIUM IONIZED WHOLE BLOOD Routine 02/22/2025 3:02 PM CDT PHOSPHORUS BLOOD Routine 02/22/2025 3:02 PM CDT MAGNESIUM BLOOD Routine 02/22/2025 3:02 PM CDT BASIC METABOLIC PANEL (CALCIUM TOTAL) Routine 02/22/2025 3:02 PM CDT SARS-COV-2 (COVID-19) RAPID Routine 02/22/2025 1:23 PM CDT GLUCOSE - POINT OF CARE Routine 02/22/2025 11:13 AM CDT XR FOOT RIGHT 3VW OR MORE MAKENNA 02/22/2025 9:15 AM CDT Closed fracture of proximal phalanx of toe of right foot XR TIBIA FIBULA LEFT 2VW MAKENNA 02/22/2025 9:15 AM CDT Other closed fracture of proximal end of left fibula, initial encounter XR CHEST 1VW PORTABLE STAT 02/22/2025 9:14 AM CDT Trauma Traumatic pneumothorax, initial encounter XR CALCANEUS LEFT 2VW OR MORE MAKENNA 02/22/2025 9:14 AM CDT Closed nondisplaced fracture of left calcaneus, unspecified portion of calcaneus, initial encounter GLUCOSE - POINT OF CARE Routine 02/22/2025 5:37 AM CDT GLUCOSE - POINT OF CARE Routine 02/22/2025 12:44 AM CDT GLUCOSE - POINT OF CARE Routine 02/21/2025 6:09 PM CDT GLUCOSE - POINT OF CARE Routine 02/21/2025 12:10 PM CDT PTT Routine 02/21/2025 8:24 AM CDT PT-INR Routine 02/21/2025 8:24 AM CDT CBC W AUTO DIFFERENTIAL Routine 02/21/2025 8:24 AM CDT GLUCOSE - POINT OF CARE Routine 02/21/2025 5:20 AM CDT XR CHEST 1VW PORTABLE Routine 02/21/2025 5:12 AM CDT Multiple rib fractures involving four or more ribs PHOSPHORUS BLOOD Routine 02/21/2025 12:4 3 AM CDT MAGNESIUM BLOOD Routine 02/21/2025 12:43 AM CDT BASIC METABOLIC PANEL (CALCIUM TOTAL) Routine 02/21/2025 12:43 AM CDT CALCIUM IONIZED WHOLE BLOOD Routine 02/21/2025 12:35 AM CDT GLUCOSE - POINT OF CARE Routine 02/20/2025 5:45 PM CDT GLUCOSE - POINT OF CARE Routine 02/20/2025 12:[address] ANGIO BRAIN AND NECK STAT 02/20/2025 10:18 AM CDT Carotid artery dissection (HCC) GLUCOSE - POINT OF CARE Routine 02/20/2025 6:11 AM CDT PTT Routine 02/20/2025 4:04 AM CDT PT-INR Routine 02/20/2025 4:04 AM CDT XR CHEST 1VW PORTABLE Routine 02/20/2025 3:51 AM CDT Trauma CBC W AUTO DIFFERENTIAL Routine 02/20/2025 12:25 AM CDT CALCIUM IONIZED WHOLE BLOOD Routine 02/20/2025 12:25 AM CDT PHOSPHORUS BLOOD Routine 02/20/2025 12:2 5 AM CDT MAGNESIUM BLOOD Routine 02/20/2025 12:25 AM CDT BASIC METABOLIC PANEL (CALCIUM TOTAL) Routine 02/20/2025 12:25 AM CDT GLUCOSE - POINT OF CARE Routine 02/20/2025 12:24 AM CDT GLUCOSE - POINT OF CARE Routine 02/19/2025 5:32 PM CDT PTT STAT 02/19/2025 3:56 PM CDT GLUCOSE - POINT OF CARE Routine 02/19/2025 12:25 PM CDT PTT STAT 02/19/2025 10:10 AM CDT XR CHEST 1VW PORTABLE Routine 02/19/2025 6:17 AM CDT Multiple rib fractures involving four or more ribs GLUCOSE - POINT OF CARE Routine 02/19/2025 5:59 AM CDT PTT Timed 02/19/2025 5:05 AM CDT PT-INR Routine 02/19/2025 5:05 AM CDT GLUCOSE - POINT OF CARE Routine 02/19/2025 12:29 AM CDT PTT Timed 02/19/2025 12:26 AM CDT CBC W AUTO DIFFERENTIAL Routine 02/19/2025 12:26 AM CDT CALCIUM IONIZED WHOLE BLOOD Routine 02/19/2025 12:26 AM CDT PHOSPHORUS BLOOD Routine 02/19/2025 12:2 6 AM CDT MAGNESIUM BLOOD Routine 02/19/2025 12:26 AM CDT BASIC METABOLIC PANEL (CALCIUM TOTAL) Routine 02/19/2025 12:26 AM CDT GLUCOSE - POINT OF CARE Routine 02/18/2025 5:38 PM CDT PTT STAT 02/18/2025 5:11 PM CDT CBC W AUTO DIFFERENTIAL Routine 02/18/2025 2:14 PM CDT GLUCOSE - POINT OF CARE Routine 02/18/2025 12:39 PM CDT PTT STAT 02/18/2025 10:08 AM CDT GLUCOSE - POINT OF CARE Routine 02/18/2025 8:10 AM CDT GLUCOSE - POINT OF CARE Routine 02/18/2025 5:07 AM CDT PTT Routine 02/18/2025 3:06 AM CDT PT-INR Routine 02/18/2025 3:06 AM CDT GLUCOSE - POINT OF CARE Routine 02/17/2025 11:10 PM CDT CBC W AUTO DIFFERENTIAL Routine 02/17/2025 11:10 PM CDT CALCIUM IONIZED WHOLE BLOOD Routine 02/17/2025 11:10 PM CDT PHOSPHORUS BLOOD Routine 02/17/2025 11:1 0 PM CDT MAGNESIUM BLOOD Routine 02/17/2025 11:10 PM CDT BASIC METABOLIC PANEL (CALCIUM TOTAL) Routine 02/17/2025 11:10 PM CDT PTT STAT 02/17/2025 8:54 PM CDT GLUCOSE - POINT OF CARE Routine 02/17/2025 5:38 PM CDT PTT STAT 02/17/2025 3:53 PM CDT CBC W AUTO DIFFERENTIAL Routine 02/17/2025 2:48 PM CDT GLUCOSE - POINT OF CARE Routine 02/17/2025 1:00 PM CDT PTT Routine 02/17/2025 6:33 AM CDT GLUCOSE - POINT OF CARE Routine 02/17/2025 5:26 AM CDT PTT Routine 02/17/2025 4:30 AM CDT HEPARIN ANTI-XA UNFRACTIONATED Routine 02/17/2025 12:12 AM CDT PT-INR Routine 02/17/2025 12:12 AM CDT PTT STAT 02/17/2025 12:12 AM CDT CALCIUM IONIZED WHOLE BLOOD Routine 02/17/2025 12:12 AM CDT PHOSPHORUS BLOOD Routine 02/17/2025 12:1 2 AM CDT MAGNESIUM BLOOD Routine 02/17/2025 12:12 AM CDT CBC W AUTO DIFFERENTIAL Routine 02/17/2025 12:12 AM CDT BASIC METABOLIC PANEL (CALCIUM TOTAL) Routine 02/17/2025 12:12 AM CDT GLUCOSE - POINT OF CARE Routine 02/17/2025 12:10 AM CDT GLUCOSE - POINT OF CARE Routine 02/16/2025 6:55 PM CDT PTT Timed 02/16/2025 5:12 PM CDT XR HAND RIGHT 3VW OR MORE Routine 02/16/2025 2:06 PM CDT Trauma GLUCOSE - POINT OF CARE Routine 02/16/2025 1:40 PM CDT PTT STAT 02/16/2025 12:56 PM CDT ECHO COMPLETE W CONTRAST Routine 02/16/2025 10:33 AM CDT Trauma Traumatic pneumothorax, initial encounter PTT Routine 02/16/2025 9:53 AM CDT PT-INR Routine 02/16/2025 9:53 AM CDT BLOOD TYPE VERIFICATION STAT 02/16/2025 6:34 AM CDT GLUCOSE - POINT OF CARE Routine 02/16/2025 5:19 AM CDT XR CHEST 1VW PORTABLE Routine 02/16/2025 4:31 AM CDT Trauma Multiple rib fractures involving four or more ribs Traumatic pneumothorax, initial encounter GLUCOSE - POINT OF CARE Routine 02/16/2025 2:39 AM CDT CALCIUM IONIZED WHOLE BLOOD STAT 02/16/2025 2:39 AM CDT PHOSPHORUS BLOOD STAT 02/16/2025 2:39 AM CDT MAGNESIUM BLOOD STAT 02/16/2025 2:39 AM CDT CBC W AUTO DIFFERENTIAL STAT 02/16/2025 2:39 AM CDT BASIC METABOLIC PANEL (CALCIUM TOTAL) STAT 02/16/2025 2:39 AM CDT HEMOGLOBIN A1C MAKENNA 02/16/2025 2:39 AM CDT URINALYSIS REFLEX MICROSCOPIC REFLEX CULTURE STAT 02/16/2025 12:33 AM CDT URINE DRUG SCREEN IMMUNOASSAY STAT 02/16/2025 12:[address] ANGIO BRAIN AND NECK STAT 02/15/2025 9:[address] FOOT LEFT WO CONTRAST STAT 02/15/2025 9:36 PM CDT Trauma GLUCOSE - POINT OF CARE Routine 02/15/2025 9:22 PM CDT XR TIBIA FIBULA LEFT 2VW STAT 02/15/2025 6:52 PM CDT Trauma XR KNEE LEFT 2VW OR LESS STAT 02/15/2025 6:51 PM CDT Trauma XR ANKLE LEFT 3VW OR MORE STAT 02/15/2025 6:51 PM CDT Trauma XR LUMBAR SPINE 2 OR 3VW STAT 02/15/2025 6:03 PM CDT Trauma XR THORACIC SPINE 2VW STAT 02/15/2025 6:02 PM CDT Trauma XR CERVICAL SPINE 2 OR 3VW STAT 02/15/2025 6:02 PM CDT Trauma XR ELBOW RIGHT 3VW OR MORE STAT 02/15/2025 6:02 PM CDT Trauma XR WRIST RIGHT 3VW OR MORE STAT 02/15/2025 6:01 PM CDT Trauma XR SHOULDER RIGHT 2VW OR MORE STAT 02/15/2025 6:01 PM CDT Trauma XR FOOT LEFT 3VW OR MORE STAT 02/15/2025 6:00 PM CDT Trauma XR CALCANEUS LEFT 2VW OR MORE STAT 02/15/2025 5:59 PM CDT Trauma PULSE OXIMETRY, CONTINUOUS STAT 02/15/2025 2:24 PM CDT XR FOOT RIGHT 3VW OR MORE STAT 02/15/2025 1:08 PM CDT Trauma XR ANKLE LEFT 3VW OR MORE STAT 02/15/2025 1:[address] ANGIO ABDOMEN AORTA W RUNOFF STAT 02/15/2025 12:[address] LUMBAR SPINE WO CONTRAST STAT 02/15/2025 12:[address] THORACIC SPINE WO CONTRAST STAT 02/15/2025 12:[address] CHEST ABDOMEN PELVIS W CONT STAT 02/15/2025 12:[address] CERVICAL SPINE WO CONTRAST STAT 02/15/2025 12:[address] FACIAL BONES WO CONTRAST STAT 02/15/2025 12:[address] HEAD WO CONTRAST STAT 02/15/2025 1 2:23 PM CDT Trauma EKG 12-LEAD STAT 02/15/2025 12:23 PM CDT Trauma TYPE + SCREEN PANEL STAT 02/15/2025 1 2:15 PM CDT VITAMIN D 25-HYDROXY Routine 02/15/2025 12:15 PM CDT PTT STAT 02/15/2025 12:15 PM CDT PT-INR STAT 02/15/2025 12:15 PM CDT CBC W AUTO DIFFERENTIAL STAT 02/15/2025 12:15 PM CDT BASIC METABOLIC PANEL (CALCIUM TOTAL) STAT 02/15/2025 12:15 PM CDT ALCOHOL ETHYL BLOOD STAT 02/15/2025 1 2:15 PM CDT XR CHEST 1VW PORTABLE STAT 02/15/2025 12:03 PM CDT Trauma XR PELVIS 1 OR 2VW STAT 02/15/2025 12 :02 PM CDT Trauma XR KNEE RIGHT 2VW OR LESS STAT 02/15/2025 12:02 PM CDT Trauma from Last 3 Months Results * XR Calcaneus Left 2Vw or More (04/13/2025 11:33 AM [employer]) Only the most recent of4 resultswithin the time period is included. Anatomical Region Laterality Modality Lower Extremity, Ankle / Foot Ra diographic Imaging 04/13/2025 11:3 6 AM [employer] Impressions 04/13/2025 1:06 PM [employer] IMPRESSION: Unchanged osseous alignment. Report dictated by Andrew Hernandez MD, (resident in diagnostic radiology). > Dictated by [employer] Courier I, Vivi Donovan MD have personally reviewed and interpreted this examination/study. > Interpreting Provider: Vivi Donovan MD on 04/13/2025 1:06 PM Narrative 04/13/2025 1:06 PM [employer] PROCEDURE: XR FOOT LEFT 3VW OR MORE, XR CALCANEUS LEFT 2VW OR MORE, DATE/TIME OF EXAM: 04/13/2025 11:33 AM, LOCATION [facility] INDICATION: S92.411D: Closed displaced fracture of proximal phalanx of right great toe with routine healing, subsequent encounter ADDITIONAL CLINICAL INFORMATION: Ordering Provider Reason For Exam: fracture Technologist Note: Additional: COMPARISON: CT of 02/15/2025, x-ray 03/16/2025 FINDINGS: FOOT/CALCANEUS: Mildly displaced fracture to the calcaneus is better delineated on prior CT. Unchanged osseous alignment. Plantar calcaneal enthesophyte. The joint spaces are preserved. The bones are diffusely demineralized. Mild dorsal soft tissue swelling. Musculature is atrophic. Procedure Note Vivi Donovan MD - 04/13/2025 PROCEDURE: XR FOOT LEFT 3VW OR MORE, XR CALCANEUS LEFT 2VW OR MORE, DATE/TIME OF EXAM: 04/13/2025 11:33 AM, LOCATION [facility] INDICATION: S92.411D: Closed displaced fracture of proximal phalanx of right greattoe with routine healing, subsequent encounter ADDITIONAL CLINICAL INFORMATION: Ordering Provider Reason For Exam: fracture Technologist Note: Additional: COMPARISON: CT of 02/15/2025, x-ray 03/16/2025 FINDINGS: FOOT/CALCANEUS: Mildly displaced fracture to the calcaneus is better delineated on prior CT. Unchanged osseous alignment. Plantar calcaneal enthesophyte. The joint spaces are preserved. Thebones are diffusely demineralized. Mild dorsal soft tissue swelling.Musculature is atrophic. IMPRESSION: Unchanged osseous alignment. Report dictated by Andrew Hernandez MD, (resident in diagnostic radiology). > Dictated by [employer]orb[employer] Courier IVivi MD have personally reviewed and interpreted this examination/study. > Interpreting Provider: Vivi Donovan MD on 04/13/2025 1:06 PM Devonte Pro MD DIAGNOSTIC IMAGING ORDERABL ES Final Result * XR Foot Left 3Vw or More (04/13/2025 11:33 AM [employer]) Only the most recent of2 resultswithin the time period is included. Anatomical Region Laterality Modality Ankle / Foot Radiographic Jaz ging 04/13/2025 11:3 6 AM [employer] Impressions 04/13/2025 1:06 PM [employer] IMPRESSION: Unchanged osseous alignment. Report dictated by Andrew Hernandez MD, (resident in diagnostic radiology). > Dictated by [employer]ourier Juliette, Vivi Donovan MD have personally reviewed and interpreted this examination/study. > Interpreting Provider: Vivi Donovan MD on 04/13/2025 1:06 PM Narrative 04/13/2025 1:06 PM [employer] PROCEDURE: XR FOOT LEFT 3VW OR MORE, XR CALCANEUS LEFT 2VW OR MORE, DATE/TIME OF EXAM: 04/13/2025 11:33 AM, LOCATION [facility] INDICATION: S92.411D: Closed displaced fracture of proximal phalanx of right great toe with routine healing, subsequent encounter ADDITIONAL CLINICAL INFORMATION: Ordering Provider Reason For Exam: fracture Technologist Note: Additional: COMPARISON: CT of 02/15/2025, x-ray 03/16/2025 FINDINGS: FOOT/CALCANEUS: Mildly displaced fracture to the calcaneus is better delineated on prior CT. Unchanged osseous alignment. Plantar calcaneal enthesophyte. The joint spaces are preserved. The bones are diffusely demineralized. Mild dorsal soft tissue swelling. Musculature is atrophic. Procedure Note Vivi Donovan MD - 04/13/2025 PROCEDURE: XR FOOT LEFT 3VW OR MORE, XR CALCANEUS LEFT 2VW OR MORE, DATE/TIME OF EXAM: 04/13/2025 11:33 AM, LOCATION [facility] INDICATION: S92.411D: Closed displaced fracture of proximal phalanx of right greattoe with routine healing, subsequent encounter ADDITIONAL CLINICAL INFORMATION: Ordering Provider Reason For Exam: fracture Technologist Note: Additional: COMPARISON: CT of 02/15/2025, x-ray 03/16/2025 FINDINGS: FOOT/CALCANEUS: Mildly displaced fracture to the calcaneus is better delineated on prior CT. Unchanged osseous alignment. Plantar calcaneal enthesophyte. The joint spaces are preserved. Thebones are diffusely demineralized. Mild dorsal soft tissue swelling.Musculature is atrophic. IMPRESSION: Unchanged osseous alignment. Report dictated by Andrew Hernandez MD, (resident in diagnostic radiology). > Dictated by [employer]ourier Vivi Segovia MD have personally reviewed and interpreted this examination/study. > Interpreting Provider: Vivi Donovan MD on 04/13/2025 1:06 PM Devonte rPo MD DIAGNOSTIC IMAGING ORDERABL ES Final Result * XR Tibia Fibula Left 2Vw (04/13/2025 11:33 AM [employer]) Only the most recent of4 resultswithin the time period is included. Anatomical Region Laterality Modality Lower Extremity Radiographic Jaz ging 04/13/2025 11:3 5 AM [employer] Impressions 04/13/2025 4:31 PM [employer] IMPRESSION: Unchanged osseous alignment. Report dictated by Andrew Hernandez MD, (resident in diagnostic radiology). > Dictated by [employer] Courier Vivi Segovia MD have personally reviewed and interpreted this examination/study. > Interpreting Provider: Vivi Donovan MD on 04/13/2025 4:31 PM Narrative 04/13/2025 4:31 PM [employer] PROCEDURE: XR TIBIA FIBULA LEFT 2VW, DATE/TIME OF EXAM: 04/13/2025 11:33 AM, LOCATION [facility] INDICATION: S82.812D: Closed torus fracture of proximal end of left fibula with routine healing, subsequent encounter ADDITIONAL CLINICAL INFORMATION: Ordering Provider Reason For Exam: fracture Technologist Note: Additional: COMPARISON: 03/16/2025 CT 02/15/2025 FINDINGS: Nondisplaced fracture of the fibular head is better delineated on prior CT from 02/15/2025. Unchanged osseous alignment. Tricompartmental osteoarthritic/degenerative changes of the knee. The bones remain diffusely demineralized. Lateral soft tissue swelling about the ankle. Procedure Note Vivi Donovan MD - 04/13/2025 PROCEDURE: XR TIBIA FIBULA LEFT 2VW, DATE/TIME OF EXAM: 1:33 AM, LOCATION [facility] INDICATION: S82.812D: Closed torus fracture of proximal end of left fibula withroutine healing, subsequent encounter ADDITIONAL CLINICAL INFORMATION: Ordering Provider Reason For Exam: fracture Technologist Note: Additional: COMPARISON: 03/16/2025 CT 02/15/2025 FINDINGS: Nondisplaced fracture of the fibular head is better delineated on priorCT from 02/15/2025. Unchanged osseous alignment. Tricompartmental osteoarthritic/degenerative changes of the knee. Thebones remain diffusely demineralized. Lateral soft tissue swelling about the ankle. IMPRESSION: Unchanged osseous alignment. Report dictated by Andrew Hernandez MD, MD (resident in diagnostic radiology). > Dictated by [employer] Courier I, Vivi Donovan MD have personally reviewed and interpreted this examination/study. > Interpreting Provider: Vivi Donovan MD on 04/13/2025 4:31 PM Devonte Pro MD DIAGNOSTIC IMAGING ORDERABL ES Final Result * XR Thoracic Spine 2Vw (04/13/2025 11:32 AM [employer]) Only the most recent of3 resultswithin the time period is included. Anatomical Region Laterality Modality Spine Radiographic Jaz ging 04/13/2025 11:3 9 AM [employer] Impressions 04/13/2025 2:47 PM [employer] IMPRESSION: 1.Multiple known fractures of the thoracic and lumbar spine are better delineated on prior CT. L1 compression fracture appears similar to minimally progressed from prior. 2.Multilevel degenerative disc and joint disease. Report dictated by Andrew Hernandez MD, (resident in diagnostic radiology). > Dictated by [employer] Courier I, Vivi Donovan MD have personally reviewed and interpreted this examination/study. > Interpreting Provider: Vivi Donovan MD on 04/13/2025 2:47 PM Narrative 04/13/2025 2:47 PM [employer] PROCEDURE: XR THORACIC SPINE 2VW, XR LUMBAR SPINE 2 OR 3VW, DATE/TIME OF EXAM: 04/13/2025 11:32 AM, LOCATION [facility] INDICATION: M54.6: Thoracic back pain, unspecified back [...] 3VW, DATE/TIMEOF EXAM: 04/13/2025 11:32 AM, LOCATION [facility] INDICATION: M54.6: Thoracic back pain, unspecified back [...] disease. Report dictated by Andrew Hernandez MD, (resident in diagnostic radiology). > Dictated by [employer] Courier I, Vivi Donovan MD have personally reviewed and interpreted this examination/study. > Interpreting Provider: Vivi Donovan MD on 04/13/2025 2:47 PM Sandra Ernandez PA-C DIAGNOSTIC IMAGING ORDERABL ES Final Result * XR Lumbar Spine 2 or 3Vw (04/13/2025 11:32 AM [employer]) Only the most recent of3 resultswithin the time period is included. Anatomical Region Laterality Modality Spine Radiographic Jaz ging 04/13/2025 11:3 9 AM [employer] Impressions 04/13/2025 2:47 PM [employer] IMPRESSION: 1.Multiple known fractures of the thoracic and lumbar spine are better delineated on prior CT. L1 compression fracture appears similar to minimally progressed from prior. 2.Multilevel degenerative disc and joint disease. Report dictated by Andrew Hernandez MD, (resident in diagnostic radiology). > Dictated by [employer] Courier I, Vivi Donovan MD have personally reviewed and interpreted this examination/study. > Interpreting Provider: Vivi Donovan MD on 04/13/2025 2:47 PM Narrative 04/13/2025 2:47 PM [employer] PROCEDURE: XR THORACIC SPINE 2VW, XR LUMBAR SPINE 2 OR 3VW, DATE/TIME OF EXAM: 04/13/2025 11:32 AM, LOCATION [facility] INDICATION: M54.6: Thoracic back pain, unspecified back [...] 3VW, DATE/TIMEOF EXAM: 04/13/2025 11:32 AM, LOCATION [facility] INDICATION: M54.6: Thoracic back pain, unspecified back [...] disease. Report dictated by Andrew Hernandez MD, (resident in diagnostic radiology). > Dictated by [employer] Courier I, Vivi Donovan MD have personally reviewed and interpreted this examination/study. > Interpreting Provider: Vivi Donovan MD on 04/13/2025 2:47 PM us Sandra Ernandez PA-C DIAGNOSTIC IMAGING ORDERABL ES Final Result * CT Angio Brain And Neck (04/13/2025 10:32 AM [employer]) Only the most recent of3 resultswithin the time period is included. Anatomical Region Laterality Modality Head Computed Tomogra phy 04/13/2025 10:5 9 AM [employer] Impressions 04/13/2025 11:50 AM [employer] IMPRESSION: 1. No acute intracranial process. 2. Extensive extracranial atherosclerosis with high-grade stenoses, grossly unchanged compared to the CTA head and neck from 02/20/2025. The previously described dissection flaps in the left common carotid artery and left ICA are near completely resolved. 3. Similar appearance of severe intracranial atherosclerosis and multivessel high-grade stenoses. No interval change compared to the CTA head and neck from 02/20/2025. 4. A new irregular sclerotic lesion in the manubrium of the sternum is indeterminant in nature. The differential diagnosis includes malignancy such as osseous metastasis and a healing occult fracture given the presence of healing fractures of the left anterior second and third ribs. Please correlate clinically. Short-term follow-up and malignancy workup are recommended. 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 Computed tomographic (CT) angiography of the head without and with contrast 2. CT angiography of the neck with contrast TECHNIQUE: CT of the head was performed without contrast according to standard protocol. Then CT angiography of the head and neck was obtained after the uneventful administration of intravenous contrast. Three dimensional postprocessing was performed by the technologist and sent to the workstation for review. CONTRAST: IOPAMIDOL 76 % IV SOLN:75 mL COMPARISON: CT angiogram of the head and neck dated 02/20/2025. FINDINGS: Non-angiographic findings: Redemonstration of large area of encephalomalacia involving the right frontal, parietal, temporal lobes, consistent with chronic right MCA infarct. Chronic lacunar infarcts are again noted in the bilateral basal ganglia. There is ex vacuo dilation of the ventricles, more pronounced in the right lateral ventricle, unchanged. Atrophy of the the right middle cerebral peduncle may represent sequela of Wallerian degeneration. No acute intra- or extra-axial fluid collections are identified. The basilar cisterns are patent. No mass effect or midline shift is seen. Periventricular white matter hypoattenuation is indicative of chronic small vessel ischemic disease. There is vascular calcification of the carotid siphons and bilateral vertebral arteries. No acute fracture is identified. 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 Mucosal retention cysts noted within the left sphenoid sinus and right maxillary sinus. Redemonstration of fractures of the right transverse processes of C6 and C7. Multilevel degenerative changes are noted in the visualized spine. There is slightly increased chronic appearing compression of the superior endplate at T1 and T2 vertebrae with formation of chronic appearing Schmorl's nodes. Incompletely imaged moderate left and small right pleural effusions with associated compressive atelectasis. There is thickening of the esophageal wall which could represent esophagitis. Diffuse heterogeneous enhancement of the thyroid gland is again seen. There is a new irregular sclerotic lesion in the manubrium of the sternum measuring approximately 1.7 x 1.3 cm on the axial view. Healing fractures in the anterior left second and third ribs. Neck: There is atherosclerotic disease of the aortic arch. The origins of the great vessels are patent without high-grade stenosis. There is atherosclerotic disease with approximately 50 % focal stenosis at the distal right common carotid artery at the bifurcation. The origin of the right internal carotid artery has focal stenosis of 70-80%. These findings are unchanged. The previously seen linear filling defect is again seen in the midportion of the common carotid artery is near completely resolved. The previously seen second dissection flap is suspected more distally in the left common carotid artery is nearly completely resolved. Calcified plaque is demonstrated at the carotid bifurcation resulting in focal stenosis of the ICA origin measuring 80-90%, grossly unchanged. The previously described linear filling defect in the proximal ICA just distal to the stenosis is less conspicuous and likely representing beam hardening artifacts from the adjacent atherosclerotic calcification. These findings are unchanged. There is atherosclerotic disease in the cervical vertebral arteries without critical stenosis. The right vertebral artery is dominant. Head: Severe intracranial atherosclerosis and multivessel intracranial stenoses are grossly unchanged. No acute large vessel occlusion has developed compared to the CTA head and neck from 02/20/2025. There is no aneurysm or AVM. 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 Computed tomographic (CT) angiography of the head without and with contrast 2. CT angiography of the neck with contrast TECHNIQUE: CT of the head was performed without contrast according to standard protocol. Then CT angiography of the head and neck was obtained after the uneventful administration of intravenous contrast. Three dimensional postprocessing was performed by the technologist and sent to the workstation for review. CONTRAST: IOPAMIDOL 76 % IV SOLN:75 mL COMPARISON: CT angiogram of the head and neck dated 02/20/2025. FINDINGS: Non-angiographic findings: Redemonstration of large area of encephalomalacia involving the right frontal, parietal, temporal lobes, consistent with chronic right MCA infarct. Chronic lacunar infarcts are again noted in the bilateral basal ganglia. There is ex vacuo dilation of the ventricles, more pronouncedin the right lateral ventricle, unchanged. Atrophy of the the right middle cerebral peduncle may represent sequela of Wallerian degeneration. No acute intra- or extra-axial fluid collections are identified. The basilar cisterns are patent. No mass effect or midline shift is seen. Periventricular white matter hypoattenuation is indicative of chronicsmall vessel ischemic disease. There is vascular calcification of the carotid siphons and bilateral vertebral arteries. No acute fracture is identified. 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 Mucosal retention cysts noted within the left sphenoid sinus and right maxillary sinus. Redemonstration of fractures of the right transverse processes of C6 and C7. Multilevel degenerative changes are noted in the visualized spine. There is slightly increased chronic appearing compression of thesuperior endplate at T1 and T2 vertebrae with formation of chronic appearing Schmorl's nodes. Incompletely imaged moderate left and small rightpleural effusions with associated compressive atelectasis. There is thickeningof the esophageal wall which could represent esophagitis. Diffuse heterogeneous enhancement of the thyroid gland is again seen. There is a new irregular sclerotic lesion in the manubrium of thesternum measuring approximately 1.7 x 1.3 cm on the axial view. Healingfractures in the anterior left second and third ribs. Neck: There is atherosclerotic disease of the aortic arch. The origins of the great vessels are patent without high-grade stenosis. There is atherosclerotic disease with approximately 50 % focal stenosisat the distal right common carotid artery at the bifurcation. The origin of the right internal carotid artery has focal stenosis of 70-80%. These findings are unchanged. The previously seen linear filling defect is again seen in themidportion of the common carotid artery is near completely resolved. The previously seen second dissection flap is suspected more distally in the leftcommon carotid artery is nearly completely resolved. Calcified plaque is demonstrated at the carotid bifurcation resulting in focal stenosis ofthe ICA origin measuring 80-90%, grossly unchanged. The previously described linear filling defect in the proximal ICA just distal to the stenosis is less conspicuous and likely representing beam hardening artifacts fromthe adjacent atherosclerotic calcification. These findings are unchanged. There is atherosclerotic disease in the cervical vertebral arterieswithout critical stenosis. The right vertebral artery is dominant. Head: Severe intracranial atherosclerosis and multivessel intracranialstenoses are grossly unchanged. No acute large vessel occlusion has developed compared to the CTA head and neck from 02/20/2025. There is no aneurysmor AVM. IMPRESSION: 1. No acute intracranial process. 2. Extensive extracranial atherosclerosis with high-grade stenoses,grossly unchanged compared to the CTA head and neck from 02/20/2025. Thepreviously described dissection flaps in the left common carotid artery and leftICA are near completely resolved. 3. Similar appearance of severe intracranial atherosclerosis and multivessel high-grade stenoses. No interval change compared to the CTA head and neck from 02/20/2025. 4. A new irregular sclerotic lesion in the manubrium of the sternum is indeterminant in nature. The differential diagnosis includes malignancy such as osseous metastasis and a healing occult fracture given thepresence of healing fractures of the left anterior second and third ribs. Please correlate clinically. Short-term follow-up and malignancy workup are recommended. > Interpreting Provider: Pricilla Mendoza MD on 04/13/2025 11:50 AM us Cj Power MD CT ORDERABLES Final Resu lt * (ABNORMAL) ISTAT CREATININE (04/13/2025 10:16 AM [employer]) Creatinine POCT 0.70 0.60 - 1.30 mg/dL 04/13/2025 10:17 AM [employer] [employer] [facility] eGFR by CKD-EPI 90(L) >90 mL/min/1.7 3 m2 04/13/2025 10:17 AM [employer] [employer] [facility] Sample iSTAT CLAY 04/13/2025 10:17 AM [facility] Blood BLOOD SPECIMEN / Unknown 04/13/2025 10:16 AM [facility] [employer] 04/13/2025 10:17 AM [facility] [employer] Cj Power MD LAB - POINT OF CARE ORDERA BLES Final Result [facility] [address] [place] [address], [facility] [phone] * XR Cervical Spine 2 or 3Vw (03/16/2025 12:23 PM [employer] [employer]) Only the most recent of2 resultswithin the time period is included. Anatomical Region Laterality Modality Spine Radiographic Jaz ging 03/16/2025 2:20 PM [facility] [employer] Impressions 03/16/2025 3:27 PM [facility] [employer] IMPRESSION: 1.Multiple known fractures involving the cervical, thoracic, and lumbar spine are better delineated on prior CT. L1 compression fracture is worsened. No new acute fracture is visualized. 2.Multilevel degenerative disc and joint disease. 3.Extensive atherosclerotic vascular calcifications. Report dictated by Andrew Hernandez MD, (resident in diagnostic radiology). > Dictated by Motorbike Courier I, Vivi Donovan MD have personally reviewed and interpreted this examination/study. > Interpreting Provider: Vivi Donovan MD on 03/16/2025 3:27 PM Narrative 03/16/2025 3:27 PM [facility] [employer] PROCEDURE: XR CERVICAL SPINE 2 OR 3VW, XR THORACIC SPINE 2VW, XR LUMBAR SPINE 2 OR 3VW, DATE/TIME OF EXAM: 03/16/2025 12:23 PM, LOCATION [facility] INDICATION: M54.2: Neck pain ADDITIONAL CLINICAL INFORMATION: Ordering Provider Reason For Exam: neck pain (accession [id number]), back pain (accession [id number]), back pain (accession [id number]) Technologist Note: Additional: COMPARISON: X-ray 02/15/2025, CT 02/15/2025 FINDINGS: CERVICAL SPINE: The vertebral bodies are normally aligned. Known C6 and C7 transverse process fractures are better delineated on prior CT from 02/15/2025. Multilevel degenerative disc and joint disease. The predental interval and prevertebral soft tissues are normal. Bone density and texture are normal. Atherosclerotic calcification of carotid arteries. THORACIC SPINE: There is exaggerated thoracic kyphosis. The vertebral bodies are otherwise normally aligned. Mild anterior wedging of T1 and T2 is better delineated on prior CT. Multilevel degenerative disc and joint disease. LUMBAR SPINE: There is mild levocurvature of the lumbar spine. There is grade 1 retrolisthesis of L4 and L5. Redemonstration of wedge compression fracture of L1, worsened. Additional known transverse process fractures of right L2 and L3 are better delineated on prior CT. Multilevel degenerative disc and joint disease, more prominent at the levels of L5-S1. Prominent atherosclerotic vascular calcifications. Procedure Note Vivi Donovan MD - 03/16/2025 PROCEDURE: XR CERVICAL SPINE 2 OR 3VW, XR THORACIC SPINE 2VW, XR LUMBAR SPINE 2 OR 3VW, DATE/TIME OF EXAM: 03/16/2025 12:23 PM, LOCATION [facility] INDICATION: M54.2: Neck pain ADDITIONAL CLINICAL INFORMATION: Ordering Provider Reason For Exam: neck pain (accession [id number]),back pain (accession [id number]), back pain (accession [id number]) Technologist Note: Additional: COMPARISON: X-ray 02/15/2025, CT 02/15/2025 FINDINGS: CERVICAL SPINE: The vertebral bodies are normally aligned. Known C6 and C7 transverse process fractures are better delineated on prior CT from 02/15/2025. Multilevel degenerative disc and joint disease. The predental intervaland prevertebral soft tissues are normal. Bone density and texture arenormal. Atherosclerotic calcification of carotid arteries. THORACIC SPINE: There is exaggerated thoracic kyphosis. The vertebral bodies areotherwise normally aligned. Mild anterior wedging of T1 and T2 is betterdelineated on prior CT. Multilevel degenerative disc and joint disease. LUMBAR SPINE: There is mild levocurvature of the lumbar spine. There is grade 1 retrolisthesis of L4 and L5. Redemonstration of wedge compressionfracture of L1, worsened. Additional known transverse process fractures of rightL2 and L3 are better delineated on prior CT. Multilevel degenerative discand joint disease, more prominent at the levels of L5-S1. Prominent atherosclerotic vascular calcifications. IMPRESSION: 1.Multiple known fractures involving the cervical, thoracic, and lumbar spine are better delineated on prior CT. L1 compression fracture is worsened. No new acute fracture is visualized. 2.Multilevel degenerative disc and joint disease. 3.Extensive atherosclerotic vascular calcifications. Report dictated by Andrew Hernandez MD, (resident in diagnostic radiology). > Dictated by Motorb[employer] Courier I, Vivi Donovan MD have personally reviewed and interpreted this examination/study. > Interpreting Provider: Vivi Donovan MD on 03/16/2025 3:27 PM us Sandra Ernandez PA-C DIAGNOSTIC IMAGING ORDERABL ES Final Result * XR Foot Right 3Vw or More (03/16/2025 10:45 AM [employer] [employer]) Only the most recent of3 resultswithin the time period is included. Anatomical Region Laterality Modality Ankle / Foot Radiographic Jaz ging 03/16/2025 10:5 5 AM [employer] [employer] Impressions 03/16/2025 11:07 AM [facility] [employer] IMPRESSION: Redemonstration of first proximal phalanx base fracture with unchanged osseous alignment. Report dictated by Andrew Hernandez MD, (resident in diagnostic radiology). > Dictated by Motorb[employer] Courier I, Johnny Haynes MD have personally reviewed and interpreted this examination/study. > Interpreting Provider: Johnny Haynes MD on 03/16/2025 11:07 AM Narrative 03/16/2025 11:07 AM [employer] [employer] PROCEDURE: XR FOOT RIGHT 3VW OR MORE, DATE/TIME OF EXAM: 03/16/2025 10:45 AM, LOCATION [facility] INDICATION: S92.911A: Closed fracture of proximal phalanx of toe of right foot ADDITIONAL CLINICAL INFORMATION: Ordering Provider Reason For Exam: fracture Technologist Note: Additional: COMPARISON: 02/22/2025 FINDINGS: Redemonstration of a comminuted intra-articular fracture of the base of the first proximal phalanx, grossly unchanged in alignment. The joint spaces are otherwise preserved. Mild soft tissue swelling. Procedure Note Johnny Haynes MD - 03/16/2025 PROCEDURE: XR FOOT RIGHT 3VW OR MORE, DATE/TIME OF EXAM: 0:45 AM, LOCATION [facility] INDICATION: S92.911A: Closed fracture of proximal phalanx of toe of right foot ADDITIONAL CLINICAL INFORMATION: Ordering Provider Reason For Exam: fracture Technologist Note: Additional: COMPARISON: 02/22/2025 FINDINGS: Redemonstration of a comminuted intra-articular fracture of the base ofthe first proximal phalanx, grossly unchanged in alignment. The joint spaces are otherwise preserved. Mild soft tissue swelling. IMPRESSION: Redemonstration of first proximal phalanx base fracture with unchanged osseous alignment. Report dictated by Andrew Hernandez MD, (resident in diagnostic radiology). > Dictated by Motorbike Courier I, Johnny Haynes MD have personally reviewed and interpreted this examination/study. > Interpreting Provider: Johnny Haynes MD on 03/16/2025 11:07 AM Devonte Pro MD DIAGNOSTIC IMAGING ORDERABL ES Final Result * (ABNORMAL) GLUCOSE - POINT OF CARE (02/27/2025 11:57 AM CDT) Only the most recent of52 resultswithin the time period is included. Pathologist [facility] Glucose WB/POC 136(H) 70 - 99 mg/dL 02/27/2025 12:07 PM CDT [facility] Specimen Type Arterial/C apillary 02/27/2025 12:07 PM CDT [facility] Blood BLOOD SPECIMEN / Unknown 02/27/2025 11:57 AM CDT 02/27/2025 12:07 PM CDT Adri Jones MD LAB - POINT OF CARE ORDERAB LES Final Result [facility] [address] [place] [address], [facility] [phone] * XR Chest 1Vw Portable (02/25/2025 6:51 AM CDT) Only the most recent of8 resultswithin the time period is included. Anatomical Region Laterality Modality Chest Digital Radiogra phy 02/25/2025 4:12 PM CDT Narrative 02/25/2025 4:13 PM CDT PROCEDURE: XR CHEST 1VW PORTABLE DATE/TIME OF EXAM: 02/25/2025 6:51 AM CLINICAL INFORMATION: None relevant/not provided if blank. Indication: S22.49XA: Multiple rib fractures involving four or more ribs S27.0XXA: Traumatic pneumothorax, initial encounter Additional History: COMPARISON: 02/24/2025 FINDINGS: Tubes and lines: None. Lungs are moderately expanded. Is moderate left pleural effusion associated with atelectasis of the lower lobe of the left lung. Interval improvement of perihilar left upper lobe opacities. Right lung is unremarkable. No other newly developed findings in the chest. > Interpreting Provider: Jack Jackson MD on 02/25/2025 4:13 PM Procedure Note Jack Jackson MD - 02/25/2025 PROCEDURE: XR CHEST 1VW PORTABLE DATE/TIME OF EXAM: 02/25/2025 6:51 AM CLINICAL INFORMATION: None relevant/not provided if blank. Indication: S22.49XA: Multiple rib fractures involving four or more ribs S27.0XXA: Traumatic pneumothorax, initial encounter Additional History: COMPARISON: 02/24/2025 FINDINGS: Tubes and lines: None. Lungs are moderately expanded. Is moderate left pleural effusion associated with atelectasis of thelower lobe of the left lung. Interval improvement of perihilar left upper lobe opacities. Right lung is unremarkable. No other newly developed findings in the chest. > Interpreting Provider: Jack Jackson MD on 54:13 PM Sree Schmidt MANAGER EXCHANGE-SOFTWARE MANAGER DIAGNOSTIC IMAGING ORDE RABLES Final Result * (ABNORMAL) PHOSPHORUS BLOOD (02/23/2025 7:51 AM CDT) Only the most recent of8 resultswithin the time period is included. Phosphorus 2.5(L) 2.9 - 5.1 mg/dL 02/23/2025 8:30 AM CDT [facility] Blood BLOOD SPECIMEN / Unknown Lab Venipuncture / Unknown 02/23/2025 7:51 AM CDT 02/23/2025 8:04 AM CDT Cj Power MD LAB - CHEMISTRY ORDERABLES Final Result Performing Organization Address [facility] Co de Phone Number [address] [address], [facility] [phone] * MAGNESIUM BLOOD (02/23/2025 7:51 AM CDT) Only the most recent of8 resultswithin the time period is included. Magnesium 1.7 1.6 - 2.6 mg/dL 02/23/2025 8:30 AM CDT [facility] Blood BLOOD SPECIMEN / Unknown Lab Venipuncture / Unknown 02/23/2025 7:51 AM CDT 02/23/2025 8:04 AM CDT Cj Power MD LAB - CHEMISTRY ORDERABLES Final Result [address] [place] [address], [facility] [phone] * (ABNORMAL) CALCIUM IONIZED WHOLE BLOOD (02/22/2025 3:02 PM CDT) Only the most recent of7 resultswithin the time period is included. [facility] Calcium Ionized 1.22 mmol/L 02/22/2025 3:17 PM CDT [facility] pH 7.47(H) 7.35 - 7.45 pH 02/22/2025 3:17 PM CDT [facility] Ionized Calcium pH Adjusted 1.26 1.19 - 1.34 mmol/L 02/22/2025 3:17 PM CDT [facility] Blood BLOOD SPECIMEN / Unknown Lab Venipuncture / Unknown 02/22/2025 3:02 PM CDT 02/22/2025 3:14 PM CDT Cj Power MD LAB - CHEMISTRY ORDERABLES Final Result [address] [address], [facility] [phone] * (ABNORMAL) CBC W AUTO DIFFERENTIAL (02/22/2025 3:02 PM CDT) Only the most recent of10 resultswithin the time period is included. [facility] WBC 8.3 4.0 - 10.7 x10E9/L 02/22/2025 3:55 PM CDT [facility] RBC Count 2.94(L) 3.90 - 5.20 x10E12/L 02/22/2025 3:55 PM CDT [facility] Hemoglobin 9.2(L) 11.9 - 15.8 g/dL 02/22/2025 3:55 PM T [facility] Hematocrit 27.2(L) 34.8 - 46.1 % 02/22/2025 3:55 PM CDT [facility] MCV 92.5 80.0 - 98.0 fL 02/22/2025 3:55 PM CDT [facility] MCH 31.3 26.7 - 33.6 pg 02/22/2025 3:55 PM [facility] MCHC 33.8 31.7 - 36.3 g/dL 02/22/2025 3:55 PM [facility] RDW-CV 13.4 11.3 - 14.8 % 02/22/2025 3:55 PM [facility] Platelet Count 315 150 - 420 x10E9/L 02/22/2025 3:55 PM [facility] MPV 9.6 7.8 - 11.4 fL 02/22/2025 3:55 PM [facility] Neutrophil % 63.4 41.0 - 74.0 % 02/22/2025 3:55 PM [facility] Lymphocyte % 21.4 17.0 - 47.0 % 02/22/2025 3:55 PM [facility] Monocyte % 9.3 3.0 - 11.0 % 02/22/2025 3:55 PM [facility] Eosinophil % 4.0 0.0 - 7.0 % 02/22/2025 3:55 PM [facility] Basophil % 0.5 0.0 - 1.6 % 02/22/2025 3:55 PM [facility] Immature Granulocytes % 1.4(H) 0.0 - 1.0 % 02/22/2025 3:55 PM [facility] Neutrophil Absolute 5.28 1.60 - 7.50 x10E9/L 02/22/2025 3:55 PM [facility] Lymphocyte Absolute 1.78 1.00 - 4.40 x10E9/L 02/22/2025 3:55 PM [facility] Monocyte Absolute 0.77 0.15 - 1.00 x10E9/L 02/22/2025 3:55 PM [facility] Eosinophil Absolute 0.33 0.00 - 0.60 x10E9/L 02/22/2025 3:55 PM [facility] Basophil Absolute 0.04 0.00 - 0.13 x10E9/L 02/22/2025 3:55 PM [facility] Blood BLOOD SPECIMEN / Unknown Lab Venipuncture / Unknown 02/22/2025 3:02 PM CDT 02/22/2025 3:13 PM CDT us Cj Power MD LAB - HEMATOLOGY ORDERABLE S Final Result [facility] [address] [place] [address], [facility] [phone] * (ABNORMAL) BASIC METABOLIC PANEL (CALCIUM TOTAL) (02/22/2025 3:02 PM CDT) Only the most recent of8 resultswithin the time period is included. BUN 10 7 - 26 mg/dL 02/22/2025 3:43 PM [facility] Creatinine 0.43(L) 0.56 - 0.96 mg/dL 02/22/2025 3:43 PM [facility] Sodium 136 136 - 145 mmol/L 02/22/2025 3:43 PM [facility] Potassium 3.5 3.5 - 4.5 mmol/L 02/22/2025 3:43 PM [facility] Chloride 98 98 - 107 mmol/L 02/22/2025 3:43 PM [facility] CO2 31(H) 22 - 29 mmol/L 02/22/2025 3:43 PM [facility] Glucose 146(H) 70 - 99 mg/dL 02/22/2025 3:43 PM [facility] Calcium 8.3(L) 8.4 - 10.2 mg/dL 02/22/2025 3:43 PM [facility] Anion Gap 7 6 - 16 02/22/2025 3:43 PM [facility] BUN/Creatinine Ratio 23 7 - 23 02/22/2025 3:43 PM [facility] Osmolality Calculated 284 275 - 295 mOsm/kg 02/22/2025 3:43 PM [facility] eGFR by CKD-EPI >90 >=90 mL/min/1.7 3 m2 02/22/2025 3:43 PM [facility] Comment:Estimated Glomerular Filtration Rate (eGFR) calculated using the CKD-EPI Creatinine Equation (2020), per the National Kidney Foundation and [place] [employer] recommendations. Blood BLOOD SPECIMEN / Unknown Lab Venipuncture / Unknown 02/22/2025 3:02 PM CDT 02/22/2025 3:13 PM CDT Cj Power MD LAB - CHEMISTRY ORDERABLES Final Result Performing Organization Address City/[facility]/ZIP Co de Phone Number [address] [address], [facility] [phone] * SARS-COV-2 (COVID-19) RAPID (02/22/2025 1:23 PM CDT) COVID-19 PCR Not detected Not detected 02/23/20 2:09 PM CDT [facility] Microbiology SPECIMEN FROM NASOPHARYNGEAL STRUCTURE / Unknown Collection / Unknown 02/22/2025 1:23 PM CDT 02/22/2025 1:38 PM CDT Narrative [facility] - 02/22/2025 2:09 PM CDT The Cepheid Xpert Xpress SARS-COV-2 has been authorized by the Food and Drug Administration (FDA) under an Emergency Use Authorization (EUA). This test has been validated in accordance with the FDA's guidance document Policy for Diagnostic Testing in Laboratories Certified to perform High Complexity Testing under CLIA prior to Emergency Use Authorization for Coronavirus Disease-2019 during the Public Health Emergency issued on July 02, 2019. FDA independent review of this validation is pending. This test is only authorized for the duration of the time the declaration that circumstances exist justifying the authorization of emergency use of in vitro diagnostic tests for detection of SARS-COV-2 virus and/or diagnosis of COVID-19 infection under 564(b) (1) of the Act. 21 U.S.C. 360bbb-3 (b) (1), unless the authorization is terminated or revoked sooner. Fact Sheets for this EUA assay are available upon request. us Rosa Helton PA-C LAB - MICROBIOLOGY ORDERABLES Final Result Performing Organization Address City/[facility]/ZIP Co de Phone Number [address] [address], [place] [phone] * (ABNORMAL) PTT (02/21/2025 8:24 AM CDT) Only the most recent of18 resultswithin the time period is included. APTT 66.1(H) 23.0 - 38.4 Seconds 02/21/2025 8:46 AM CDT [facility] Comment:Suggested therapeuti c range for full dose I.V. unfractionated heparin therapy for venous thromboembolism is 71 to 109 seconds. Blood BLOOD SPECIMEN / Unknown Venipuncture / Unknown 02/21/2025 8:24 AM CDT 02/21/2025 8:26 AM CDT Cj Power MD LAB - COAGULATION ORDERABL ES Final Result Performing Organization Address [facility] Co de Phone Number [address] [address], [facility] [phone] * (ABNORMAL) PT-INR (02/21/2025 8:24 AM CDT) Only the most recent of7 resultswithin the time period is included. PT 14.9(H) 12.1 - 14.8 Seconds 02/21/2025 8:46 AM CDT [facility] INR 1.2 See Comment 02/21/2025 8:46 AM CDT [facility] Comment:The suggested therap eutic range for standard coumadin (warfarin) therapy is an INR of 2.0-3.0. For high-risk patients (Mechanical Mitral Valve Prosthesis, etc.), the suggested prophylactic therapeutic range is an INR of 2.5-3.5. Blood BLOOD SPECIMEN / Unknown Venipuncture / Unknown 02/21/2025 8:24 AM CDT 02/21/2025 8:26 AM CDT Cj Power MD LAB - COAGULATION ORDERABL ES Final Result Performing Organization Address [facility]/ZIP Co de Phone Number [address] [address], [facility] [phone] * (ABNORMAL) HEPARIN ANTI-XA UNFRACTIONATED (02/17/2025 12:12 AM CDT) Heparin Anti-Xa Unfractionated 1.10(H) <0.01 Units/mL 02/17/2025 3:33 AM CDT [facility] Comment:The therapeutic rang e for unfractionated heparin is 0.3 - 0.7 Units/mL. Blood BLOOD SPECIMEN / Unknown Venipuncture / Unknown 02/17/2025 12:12 AM CDT 02/17/2025 12:15 AM CDT us Cj Power MD LAB - SEROLOGY ORDERABLES Final Result Performing Organization Address City/State/[facility] Co de Phone Number [facility] [address] [place] [address], [facility] [phone] * XR Hand Right 3Vw or More (02/16/2025 2:06 PM CDT) Anatomical Region Laterality Modality Wrist / Hand Digital Radiogra phy 02/16/2025 2:35 PM CDT Impressions 02/16/2025 4:06 PM CDT IMPRESSION: 1. No acute fracture or dislocation identified. 2. There is a subtle cortical deformity versus osseous body at the level of the head of the first proximal phalanx which may represent an age indeterminate healed fracture versus sesamoid bone. The report is dictated by Waqas Khan MD, (resident in diagnostic radiology) 02/16/2025 2:53 PM. > Dictated by [employer]orbike Courier I, Vivi Donovan MD have personally reviewed and interpreted this examination/study. > Interpreting Provider: Vivi Donovan MD on 02/16/2025 4:06 PM Narrative 02/16/2025 4:06 PM CDT PROCEDURE: XR SHOULDER RIGHT 2VW OR MORE, XR HAND RIGHT 3VW OR MORE, XR ELBOW RIGHT 3VW OR MORE, XR WRIST RIGHT 3VW OR MORE, DATE/TIME OF EXAM: 02/15/2025 6:01 PM, LOCATION [facility] INDICATION: T14.90XA: Trauma ADDITIONAL CLINICAL INFORMATION: Ordering Provider Reason For Exam: fx (accession [id number]), fx (accession [id number]), fx? (accession [id number]), fx? (accession [id number]) COMPARISON: Single view chest radiograph and CT chest abdomen pelvis 02/15/2025 FINDINGS: Right shoulder: Examination limited due to suboptimal AP positioning however, the osseous structures are intact without acute fracture. The glenohumeral and acromioclavicular joints are in anatomic alignment. The bones are mildly diffusely demineralized. Right elbow: The osseous structures are intact and well aligned without acute fracture or dislocation. The joint spaces are preserved. No joint effusion is seen. The bones are mildly diffusely demineralized. No soft tissue swelling is present. Right wrist: The carpal rows appear intact. The osseous structures are intact and well aligned without acute fracture or dislocation. There is mild osteoarthritic change most prominent at the first carpal metacarpal joint. The bones are mildly diffusely demineralized. No soft tissue swelling is present. Right hand: Visualization of the second distal phalanx obscured due to pulse oximeter. There is a cortical deformity at the head of the first proximal phalanx which may represent an age indeterminate fracture versus sesamoid bone. The additional osseous structures are intact and well aligned without acute fracture or dislocation. The joint spaces are preserved. The bones are mildly diffusely demineralized. No significant soft tissue swelling is present. Procedure Note Vivi Donovan MD - 02/16/2025 PROCEDURE: XR SHOULDER RIGHT 2VW OR MORE, XR HAND RIGHT 3VW OR MORE, XR ELBOW RIGHT 3VW OR MORE, XR WRIST RIGHT 3VW OR MORE, DATE/TIME OF EXAM: 02/15/2025 6:01 PM, LOCATION [facility] INDICATION: T14.90XA: Trauma ADDITIONAL CLINICAL INFORMATION: Ordering Provider Reason For Exam: fx (accession [id number]), fx(accession [id number]), fx? (accession [id number]), fx? (accession [id number]) COMPARISON: Single view chest radiograph and CT chest abdomen pelvis 02/15/2025 FINDINGS: Right shoulder: Examination limited due to suboptimal AP positioning however, theosseous structures are intact without acute fracture. The glenohumeral and acromioclavicular joints are in anatomic alignment. The bones are mildly diffusely demineralized. Right elbow: The osseous structures are intact and well aligned without acutefracture or dislocation. The joint spaces are preserved. No joint effusion isseen. The bones are mildly diffusely demineralized. No soft tissue swelling is present. Right wrist: The carpal rows appear intact. The osseous structures are intact andwell aligned without acute fracture or dislocation. There is mildosteoarthritic change most prominent at the first carpal metacarpal joint. The bonesare mildly diffusely demineralized. No soft tissue swelling is present. Right hand: Visualization of the second distal phalanx obscured due to pulseoximeter. There is a cortical deformity at the head of the first proximal phalanx which may represent an age indeterminate fracture versus sesamoid bone.The additional osseous structures are intact and well aligned without acute fracture or dislocation. The joint spaces are preserved. The bones are mildly diffusely demineralized. No significant soft tissue swelling is present. IMPRESSION: 1. No acute fracture or dislocation identified. 2. There is a subtle cortical deformity versus osseous body at the levelof the head of the first proximal phalanx which may represent an age indeterminate healed fracture versus sesamoid bone. The report is dictated by Waqas Khan MD, (resident in diagnostic radiology)02/16/2025 2:53 PM. > Dictated by [employer] I, Vivi Donovan MD have personally reviewed and interpreted this examination/study. > Interpreting Provider: Vivi Donovan MD on 02/16/2025 4:06 PM Cj Power MD DIAGNOSTIC IMAGING ORDERAB LES Final Result * ECHO COMPLETE W CONTRAST (02/16/2025 10:33 AM CDT) IVC Diam Expiration 1.411 cm SSM CV FUJI PACS Sinus of Valsalva 2.9 cm SS M CV FUJI PACS AV area index 0.653 cm /m SSM CV FUJI PACS Dimensionless Index 0.505 unitless SSM CV FUJI PACS Myocardial strain charge 2 unitless SSM CV FUJI PACS IVSd 2D 1.016 cm SSM CV FUJ I PACS LVIDd 3.778 cm SSM CV FUJ I PACS LVIDs 2.606 cm SSM CV [facility] I PACS LVOT diam 1.858 cm SSM CV [facility] I PACS LVPWd 0.866 cm SSM CV [facility] I PACS LV biplane EF 62.504 % [facility] LV A2C EF 64.244 % SSM CV [facility] I PACS LV A4C EF 61.234 % SSM CV [facility] I PACS LV EDV A2C 53.787 ml SSM CV FU JI PACS LV EDV A4C 71.513 ml SSM CV FU JI PACS LV ESV A2C 19.232 ml SSM CV FU JI PACS LV ESV A4C 27.723 ml SSM CV FU JI PACS LVOT pk grad 2.565 [facility] LVOT pk hood 83.271 cm/s SSM CV F UJI PACS LVOT VTI 19.964 cm SSM CV [facility] I PACS RV-[place] basal diam 3.112 [facility] RVOT pk hood 87.838 cm/s SSM CV F U PACS RVOT VTI 14.949 cm SSM CV [facility] I PACS LA size 3.741 cm SSM CV [facility] I PACS AV area pk hood 1.162 cm [facility] area cont VTI 1.37 [facility] AV pk grad 15.086 mmHg SSM CV FU JI PACS AV mn grad 8.146 mmHg SSM CV FU JI PACS AV pk hood 194.202 cm/s SSM CV [facility] I PACS AV VTI 39.501 cm SSM CV [facility] I PACS MV A pk hood 90.215 cm/s SSM CV F U PACS MV E pk hood 117.527 cm/s SSM CV F UJI PACS MV E' lateral hood 7.292 cm/s SS [facility] MV mn grad 1.861 mmHg SSM CV FU JI PACS MV VTI 22.429 cm SSM CV [facility] I PACS PV pk hood 85.705 cm/s SSM CV [facility] I PACS PV VTI 16.339 cm SSM CV [facility] I PACS TAPSE 1.73 cm SSM CV [facility] I PACS Ascending aorta 3.074 cm SSM CV FUJI PACS Anatomical Region Laterality Modality Ultrasound 02/16/2025 9:55 AM CDT Narrative 02/16/2025 12:25 PM CDT Summary * The left ventricle is normal in size, with normal systolic function and an estimated ejection fraction of 63 % by biplane method of disks. Left ventricular wall motion is normal. * The left ventricular diastolic function is consistent with grade I diastolic dysfunction and normal left atrial filling pressure. * Right ventricle is normal in size with low normal systolic function. * No hemodynamically significant valve disease. * Unable to assess pulmonary pressures due to a lack of tricuspid and pulmonic regurgitation. * There is no pericardial effusion. Patient Info Name: Martina Vital Age: 74 years : 1950 Gender: Female Ht: 67 in Wt: 200 lb BSA: 2.10 m2 HR: 76 bpm BP: 159 / 78 mmHg Heart Rhythm: Sinus Rhythm Exam Date: 02/16/2025 9:55 AM Patient Status: O Study Site: [facility] Primary Location: [facility] EStudy Info Technical Quality: Fair Exam Type: ECHO COMPLETE W CONTRAST Indications T14.90XA - Trauma S27.0XXA - Traumatic pneumothorax, initial encounter Procedure(s) * A complete 2D, color Doppler, spectral Doppler, and M-Mode transthoracic echocardiogram was performed. * An Ultrasound Enhancing Agent (UEA) was utilized to enhance endocardial definition, opacify the left ventricle and further assess left ventricular function and wall motion. Contrast/Agitated Saline Contrast / Saline: Definity Amount: 1.50 ml Reaction to Contrast: no Reason for Technically Difficult Study: lung interference, body habitus Staff Referring Physician: Cj Power Ordering Provider: Cj Power Attending Physician: Cj Power Fellow: John Michelle Physician Practice Market Manager: Eric Cottrell Left Ventricle The left ventricle is normal in size. Left ventricular systolic function is normal with an estimated ejection fraction of 63 % by biplane method of disks. The left ventricular mass is normal with concentric remodeling. Left ventricular segmental wall motion is normal. The left ventricular diastolic function is consistent with grade I diastolic dysfunction and normal left atrial filling pressure. Right Ventricle The right ventricle is normal in size. Right ventricular systolic function is low normal. Ventricular Septum Intact interventricular septum visualized by 2D and color Doppler imaging. Left Atrium The left atrium is normal in size. Right Atrium The right atrium is not well visualized, but appears grossly normal in size. Atrial Septum Intact interatrial septum visualized by 2D and color Doppler imaging. Aortic Valve The aortic valve is trileaflet with calcified leaflet tips. There is no aortic valve stenosis with a peak velocity of 1.9 m/s, mean gradient of 8 mmHg, and aortic valve area of 1.37 cm2. There is no aortic valve regurgitation. Pulmonic Valve The pulmonic valve is not well visualized. There is no pulmonic valve stenosis. There is no pulmonic regurgitation. Mitral Valve The mitral valve is mildly thickened. There is no mitral valve stenosis. There is no mitral valve regurgitation. Tricuspid Valve The tricuspid valve is grossly normal. There is no tricuspid valve stenosis. There is trace tricuspid valve regurgitation. Unable to assess pulmonary pressures due to a lack of tricuspid and pulmonic regurgitation. Inferior Vena Cava The inferior vena cava is normal in size (< 2.1 cm). There is > 50% collapse of the IVC upon inspiration with an estimated right atrial pressure of 3 mmHg. Pericardium/Pleural There is no pericardial effusion. Aorta The aortic root at the sinus of Valsalva is normal in size measuring 2.9 cm with an index of 1.4 cm/m2. The ascending aorta is normal in size measuring 3.1 cm with an index of 1.5 cm/m2. Measurements Left Ventricular Outflow Tract Name Value Normal LVOT 2D LVOT Diameter 1.9 cm LVOT Area 2.7 cm2 LVOT Doppler LVOT Peak Velocity 0.8 m/s LVOT Peak Gradient 3 mmHg LVOT Mean Velocity 49.86 cm/s LVOT Mean Gradient 1 mmHg LVOT VTI 20.0 cm LVOT VTI/AV VTI Ratio 0.5 LVOT Stroke Volume 54 ml LVOT Stroke Volume Index 26 ml/m2 35-58 LVOT CO 4.1 l/min LVOT CI 1.9 l/min/m2 Pulmonic Valve Name Value Normal RVOT Doppler RVOT Peak Velocity 0.9 m/s RVOT Peak Gradient 3 mmHg RVOT Mean Gradient 2 mmHg PV Doppler PV Peak Velocity 0.9 m/s PV Peak Gradient 3 mmHg PV Mean Gradient 2 mmHg Mitral Valve Name Value Normal MV Doppler MV Peak Gradient 5 mmHg MV Mean Gradient 2 mmHg MV DI (VTI) 1.12 MV PHT 48 ms MV Area (PHT) 4.62 cm2 4.00-5.00 MV Area (Cont Eq VTI) 2.41 cm2 MV Diastolic Function MV E Peak Velocity 1.2 m/sec MV A Peak Velocity 0.9 m/sec MV E/A 1.3 MV Decel Time (PW) 164 ms MV Annular TDI MV Septal e' Velocity 4 cm/s >=8 MV E/e' (Septal) 28 <=8 MV Lateral e' Velocity 7 cm/s >=10 MV E/e' (Lateral) 16 <=8 MV e' Average 6 cm/s MV E/e' (Average) 22 Tricuspid Valve Name Value Normal Estimated PAP/RSVP RA Pressure 3 mmHg <=5 TV Annular TDI TV Lateral Emelia s' Velocity 14 cm/s 10-19 Aorta Name Value Normal Ascending Aorta Sinus of Valsalva Diameter 2.9 cm 2.4-3.6 Sinus of Valsalva Index 1.4 cm/m2 1.4-2.2 Asc Ao Diameter 3.1 cm 1.9-3.5 Asc Ao Diameter Index 1.5 cm/m2 1.0-2.2 Venous Name Value Normal IVC/SVC IVC Diameter 1.4 cm <=2.1 Aortic Valve Name Value Normal AV 2D/MM AV Cusp Sep (MM) 1.0 cm AV Doppler AV Peak Velocity 1.94 m/s AV Peak Gradient 15 mmHg AV Mean Gradient 8 mmHg AV VTI 40 cm AV Area (Cont Eq VTI) 1.37 cm2 >=2.00 AV Area (Cont Eq Hood) 1.16 cm2 AV DI (VTI) 0.51 AV DI (Hood) 0.43 AV Regurgitation 2D LVOT Area 2.71 cm2 Ventricles Name Value Normal LV Dimensions 2D/MM IVS Diastolic Thickness (2D) 1.0 cm 0.6-0.9 LVID Diastole (2D) 3.8 cm 3.8-5.2 LVPW Diastolic Thickness (2D) 0.9 cm 0.6-0.9 LVID Systole (2D) 2.6 cm 2.2-3.5 LV Mass (2D Cubed) 107 g 67-162 LV Mass Index (2D Cubed) 51 g/m2 43-95 Relative Wall Thickness (2D) 0.46 <=0.42 LV Fractional Shortening/Ejection Fraction 2D/MM LV Fractional Shortening (2D) 31 % 27-45 LV EF (2D Teicholz) 60 % 54-74 LV Diastolic Volume (4C MOD) 72 ml LV EF (4C MOD) 61 % LV Diastolic Volume (2C MOD) 54 ml LV EF (2C MOD) 64 % LV Diastolic Volume (BP MOD) 64 ml 46-106 LV Diastolic Volume Index (BP MOD) 31 ml/m2 29-61 LV Systolic Volume (BP MOD) 24 ml 14-42 LV Systolic Volume Index (BP MOD) 11 ml/m2 8-24 LV EF (BP MOD) 63 % 54-74 LV Diastolic Length (4C) 7.0 cm LV Systolic Length (4C) 5.8 cm LV Stroke Volume (4C MOD) 44 ml RV Dimensions 2D/MM RV Basal Diastolic Dimension 3.1 cm 2.5-4.1 TAPSE 1.7 cm >=1.7 Atria Name Value Normal LA Dimensions LA Dimension (2D) 3.7 cm 2.7-3.8 LA Dimen Index (2D) 1.8 cm/m2 Report Signatures Finalized by Hallie Chavez on 02/16/2025 12:25 PM Reviewed by Fellow John Michelle on 02/16/2025 11:34 AM Procedure Note Hallie Chavez, DO - 02/16/2025 Summary * The left ventricle is normal in size, with normal systolic functionand an estimated ejection fraction of 63 % by biplane method of disks. Left ventricular wall motion is normal. * The left ventricular diastolic function is consistent with grade I diastolic dysfunction and normal left atrial filling pressure. * Right ventricle is normal in size with low normal systolic function. * No hemodynamically significant valve disease. * Unable to assess pulmonary pressures due to a lack of tricuspid and pulmonic regurgitation. * There is no pericardial effusion. Patient Info Name: Martina Vital Age: 74 years : 1950 Gender: Female Ht: 67 in Wt: 200 lb BSA: 2.10 m2 HR: 76 bpm BP: 159 / 78 mmHg Heart Rhythm: Sinus Rhythm Exam Date: 02/16/2025 9:55 AM Patient Status: O Study Site: [facility] Primary Location: [facility] Info Technical Quality: Fair Exam Type: ECHO COMPLETE W CONTRAST Indications T14.90XA - Trauma S27.0XXA - Traumatic pneumothorax, initial encounter Procedure(s) * A complete 2D, color Doppler, spectral Doppler, and M-Modetransthoracic echocardiogram was performed. * An Ultrasound Enhancing Agent (UEA) was utilized to enhanceendocardial definition, opacify the left ventricle and further assess leftventricular function and wall motion. Contrast/Agitated Saline Contrast / Saline: Definity Amount: 1.50 ml Reaction to Contrast: no Reason for Technically Difficult Study: lung interference, bodyhabitus Staff Referring Physician: Cj Power Ordering Provider: Cj Power Attending Physician: Cj Power Fellow: John Michelle Physician Practice Market Manager: Eric Cottrell Left Ventricle The left ventricle is normal in size. Left ventricular systolic functionis normal with an estimated ejection fraction of 63 % by biplane method ofdisks. The left ventricular mass is normal with concentric remodeling. Left ventricular segmental wall motion is normal. The left ventriculardiastolic function is consistent with grade I diastolic dysfunction and normalleft atrial filling pressure. Right Ventricle The right ventricle is normal in size. Right ventricular systolicfunction is low normal. Ventricular Septum Intact interventricular septum visualized by 2D and color Dopplerimaging. Left Atrium The left atrium is normal in size. Right Atrium The right atrium is not well visualized, but appears grossly normal insize. Atrial Septum Intact interatrial septum visualized by 2D and color Doppler imaging. Aortic Valve The aortic valve is trileaflet with calcified leaflet tips. There isno aortic valve stenosis with a peak velocity of 1.9 m/s, mean gradient of8 mmHg, and aortic valve area of 1.37 cm2. There is no aortic valve regurgitation. Pulmonic Valve The pulmonic valve is not well visualized. There is no pulmonic valve stenosis. There is no pulmonic regurgitation. Mitral Valve The mitral valve is mildly thickened. There is no mitral valvestenosis. There is no mitral valve regurgitation. Tricuspid Valve The tricuspid valve is grossly normal. There is no tricuspid valvestenosis. There is trace tricuspid valve regurgitation. Unable to assess pulmonary pressures due to a lack of tricuspid and pulmonic regurgitation. Inferior Vena Cava The inferior vena cava is normal in size (< 2.1 cm). There is > 50%collapse of the IVC upon inspiration with an estimated right atrial pressure of 3mmHg. Pericardium/Pleural There is no pericardial effusion. Aorta The aortic root at the sinus of Valsalva is normal in size measuring 2.9cm with an index of 1.4 cm/m2. The ascending aorta is normal in sizemeasuring 3.1 cm with an index of 1.5 cm/m2. Measurements Left Ventricular Outflow Tract Name Value Normal LVOT 2D LVOT Diameter 1.9 cm LVOT Area 2.7 cm2 LVOT Doppler LVOT Peak Velocity 0.8 m/s LVOT Peak Gradient 3 mmHg LVOT Mean Velocity 49.86 cm/s LVOT Mean Gradient 1 mmHg LVOT VTI 20.0 cm LVOT VTI/AV VTI Ratio 0.5 LVOT Stroke Volume 54 ml LVOT Stroke Volume Index 26 ml/m2 35-58 LVOT CO 4.1 l/min LVOT CI 1.9 l/min/m2 Pulmonic Valve Name Value Normal RVOT Doppler RVOT Peak Velocity 0.9 m/s RVOT Peak Gradient 3 mmHg RVOT Mean Gradient 2 mmHg PV Doppler PV Peak Velocity 0.9 m/s PV Peak Gradient 3 mmHg PV Mean Gradient 2 mmHg Mitral Valve Name Value Normal MV Doppler MV Peak Gradient 5 mmHg MV Mean Gradient 2 mmHg MV DI (VTI) 1.12 MV PHT 48 ms MV Area (PHT) 4.62 cm2 4.00-5.00 MV Area (Cont Eq VTI) 2.41 cm2 MV Diastolic Function MV E Peak Velocity 1.2 m/sec MV A Peak Velocity 0.9 m/sec MV E/A 1.3 MV Decel Time (PW) 164 ms MV Annular TDI MV Septal e' Velocity 4 cm/s >=8 MV E/e' (Septal) 28 <=8 MV Lateral e' Velocity 7 cm/s >=10 MV E/e' (Lateral) 16 <=8 MV e' Average 6 cm/s MV E/e' (Average) 22 Tricuspid Valve Name Value Normal Estimated PAP/RSVP RA Pressure 3 mmHg <=5 TV Annular TDI TV Lateral Emelia s' Velocity 14 cm/s 10-19 Aorta Name Value Normal Ascending Aorta Sinus of Valsalva Diameter 2.9 cm 2.4-3.6 Sinus of Valsalva Index 1.4 cm/m2 1.4-2.2 Asc Ao Diameter 3.1 cm 1.9-3.5 Asc Ao Diameter Index 1.5 cm/m2 1.0-2.2 Venous Name Value Normal IVC/SVC IVC Diameter 1.4 cm <=2.1 Aortic Valve Name Value Normal AV 2D/MM AV Cusp Sep (MM) 1.0 cm AV Doppler AV Peak Velocity 1.94 m/s AV Peak Gradient 15 mmHg AV Mean Gradient 8 mmHg AV VTI 40 cm AV Area (Cont Eq VTI) 1.37 cm2 >=2.00 AV Area (Cont Eq Hood) 1.16 cm2 AV DI (VTI) 0.51 AV DI (Hood) 0.43 AV Regurgitation 2D LVOT Area 2.71 cm2 Ventricles Name Value Normal LV Dimensions 2D/MM IVS Diastolic Thickness (2D) 1.0 cm 0.6-0.9 LVID Diastole (2D) 3.8 cm 3.8-5.2 LVPW Diastolic Thickness (2D) 0.9 cm 0.6-0.9 LVID Systole (2D) 2.6 cm 2.2-3.5 LV Mass (2D Cubed) 107 g 67-162 LV Mass Index (2D Cubed) 51 g/m2 43-95 Relative Wall Thickness (2D) 0.46 <=0.42 LV Fractional Shortening/Ejection Fraction 2D/MM LV Fractional Shortening (2D) 31 % 27-45 LV EF (2D Teicholz) 60 % 54-74 LV Diastolic Volume (4C MOD) 72 ml LV EF (4C MOD) 61 % LV Diastolic Volume (2C MOD) 54 ml LV EF (2C MOD) 64 % LV Diastolic Volume (BP MOD) 64 ml 46-106 LV Diastolic Volume Index (BP MOD) 31 ml/m2 29-61 LV Systolic Volume (BP MOD) 24 ml 14-42 LV Systolic Volume Index (BP MOD) 11 ml/m2 8-24 LV EF (BP MOD) 63 % 54-74 LV Diastolic Length (4C) 7.0 cm LV Systolic Length (4C) 5.8 cm LV Stroke Volume (4C MOD) 44 ml RV Dimensions 2D/MM RV Basal Diastolic Dimension 3.1 cm 2.5-4.1 TAPSE 1.7 cm >=1.7 Atria Name Value Normal LA Dimensions LA Dimension (2D) 3.7 cm 2.7-3.8 LA Dimen Index (2D) 1.8 cm/m2 Report Signatures Finalized by Hallie Chavez on 02/16/2025 12:25 PM Reviewed by Fellow John Michelle on 02/16/2025 11:34 AM Cj Power MD ECHO CUPID Final Resu lt * BLOOD TYPE VERIFICATION (02/16/2025 6:34 AM CDT) ABO Rh A POS 02/16/2025 7:3 5 AM CDT [facility] Blood Bank BLOOD SPECIMEN / Unknown Venipuncture / Unknown 02/16/2025 6:34 AM CDT 02/16/2025 6:45 AM CDT Cj Power MD LAB - BLOOD BANK ORDERABLE S Final Result [facility] [address] [place] [address], [facility] [phone] * (ABNORMAL) HEMOGLOBIN A1C (02/16/2025 2:39 AM CDT) Hemoglobin A1c 6.3(H) <=5.6 % 02/16/2025 9:13 AM CDT [facility] Estimated Average Glucose 134 mg/dL 02/16/2025 9:13 AM CDT [facility] Comment: HbA1c Interpretation: Normal : < 5.7% Pre-diabetes: 5.7-6.4% Diabetes: Equal to or greater than 6.5% Test results diagnostic of diabetes should be repeated for confirmation. Treatment target values recommended by ADA and other clinical organizations should be used to evaluate metabolic control in patients. Reference: [place] [employer], Standards of Care in Diabetes -2020 In patients 70 years and older consider HbA1c target range of 7.0-7.5% (Reference: Mukund Huerta et al. JAMDA. 2012) The [place] assay for the measurement of HbA1c is a National Glycohemoglobin Standardization Program (NGSP) certified method. Blood BLOOD SPECIMEN / Unknown Venipuncture / Unknown 02/16/2025 2:39 AM CDT 02/16/2025 3:10 AM CDT us Cj Power MD LAB - CHEMISTRY ORDERABLES Final Result [address] [address], [facility] [phone] * (ABNORMAL) URINALYSIS REFLEX MICROSCOPIC REFLEX CULTURE (02/16/2025 12:33 AM CDT) Color UA Yellow Yellow, Straw 02/16/2025 1:05 AM [facility] Clarity UA Clear Clear 02/16/2025 1:05 AM [facility] Glucose UA Normal Normal 02/16/2025 1:05 AM [facility] Bilirubin UA Negative Negative 02/16/2025 1:05 AM [facility] Ketone UA Negative Negative 02/16/2025 1:05 AM [facility] Specific [place] UA >1.050(H) 1.005 - 1.030 02/16/2025 1:05 AM [facility] Comment:Specific gravity res ults confirmed by refractometer. Blood UA 2+(A) Negative 02/16/2025 1:05 AM [facility] pH UA 6.0 5.0 - 8.0 02/16/2025 1:05 AM [facility] Protein UA Trace(A) Negative 02/16/2025 1:05 AM [facility] Urobilinogen UA Normal Normal mg/dL 02/16/2025 1:05 AM [facility] Nitrite UA Negative Negative 02/16/2025 1:05 AM [facility] Leukocyte Esterase UA Negative Negative 02/16/2025 1:05 AM [facility] RBC UA 6-10(A) 0 - 5 # /hpf 02/16/2025 1:05 AM [facility] WBC UA 0-5 0 - 5 # /hpf 02/16/2025 1:05 AM [facility] Bacteria UA Trace(A) None Seen 02/16/2025 1:05 AM [facility] Squamous Epithelial Cells 0-2 0 - 5 /hpf 02/16/2025 1:05 AM [facility] Mucus UA 1+ /LPF 02/16/2025 1:05 AM [facility] Reflex Status Culture not indicated 02/16/2025 1:05 AM [facility] Urine URINE SPECIMEN OBTAINED BY CLEAN CATCH PROCEDURE / Unknown Collection / Unknown 02/16/2025 12:33 AM CDT 02/16/2025 12:37 AM T Cyndi Hernandez MD LAB - URINALYSIS ORDERABLES Fi nal Result [address] [address], [facility] [phone] * (ABNORMAL) URINE DRUG SCREEN IMMUNOASSAY (02/16/2025 12:33 AM T) [facility] Amphetamines Screen Urine Negative Negative : < 1000 ng/mL 02/16/2025 12:59 AM [facility] Barbiturates Screen Urine Negative Negative : < 200 ng/mL 02/16/2025 12:59 AM [facility] Benzodiazepine Screen Urine Positive(A) Negative : < 200 ng/mL 02/16/2025 12:59 AM [facility] Comment: Positive urine benzodiazepine screening results should be confirmed by another generally accepted non-immunological method such as gas chromatography or mass spectrometry. Opiates Urine Negative Negative : < 300 ng/mL 02/16/2025 12:59 AM [facility] Cocaine Metabolites Urine Negative Negative : < 300 ng/mL 02/16/2025 12:59 AM [facility] Phencyclidine Screen Urine Negative Negative : < 25 ng/ml 02/16/2025 12:59 AM CDT [facility] Cannabinoids Screen Urine Negative Negative : <50 ng/mL 02/16/2025 12:59 AM CDT [facility] Methadone Screen Urine Negative Negative : < 300 ng/mL 02/16/2025 12:59 AM CDT [facility] Fentanyl Screen Urine Negative Negative : <1.5 ng/mL 02/16/2025 12:59 AM CDT [facility] Urine URINE / Unknown Collection / Unknown 02/16/2025 12:33 AM CDT 02/16/2025 12:37 AM CDT Narrative [facility] - 02/16/2025 12:59 AM CDT The Urine Toxicology Screening Panel does not screen for Propoxyphene, Meprobamate, Carisoprodol, Trazodone, [id number] medications and/or volatiles (Acetone, Isopropanol, Methanol or Ethylene Glycol). Ethanol, Salicylate, Acetaminophen, Tricyclic Antidepressants and several therapeutic drugs may be individually assayed in serum or plasma specimen. Toxicology testing by the [facility] is an aid to medical diagnosis and treatment of patients. No documented chain of custody was maintained. Results are intended to be used for clinical purposes only. us Cj Power MD LAB - URINE CHEMISTRY SILVESTRE SHRESTHA Final Result [facility] [address] [place] [address], [facility] [phone] * CT Foot Left Wo Contrast (02/15/2025 9:36 PM CDT) Anatomical Region Laterality Modality Ankle / Foot Computed Tomogra phy 02/15/2025 9:55 PM CDT Impressions 02/16/2025 8:09 AM CDT IMPRESSION: Mild displaced calcaneal fracture. Report dictated by Jarocho Alejandra MD, (Motorbike Courier). > Dictated by Motorbike Courier I, Johnny Haynes MD have personally reviewed and interpreted this examination/study. > Interpreting Provider: Johnny Haynes MD on 02/16/2025 8:09 AM Narrative 02/16/2025 8:09 AM CDT PROCEDURE: CT FOOT LEFT WO CONTRAST DATE/TIME OF EXAM: 02/15/2025 9:36 PM CLINICAL INFORMATION: None relevant/not provided if blank. Indication: T14.90XA: Trauma COMPARISON: X-ray left foot 02/15/2025 5:23 PM TECHNIQUE: CT of the left foot' was performed without administration of intravenous contrast according to standard protocol. CT dose reduction technique was used, including Automated Exposure Control. FINDINGS: There is a mildly displaced fracture of the calcaneus involving the tuberosity. The fracture does not extend into the joints. Fracture gap measures up to 6 mm at the plantar aspect (series 8 image 45). There is no dislocation. There is mild soft tissue edema. A splint is present. Procedure Note Johnny Haynes MD - 02/16/2025 PROCEDURE: CT FOOT LEFT WO CONTRAST DATE/TIME OF EXAM: 02/15/2025 9:36 PM CLINICAL INFORMATION: None relevant/not provided if blank. Indication: T14.90XA: Trauma COMPARISON: X-ray left foot 02/15/2025 5:23 PM TECHNIQUE: CT of the left foot' was performed without administration of intravenous contrast according to standard protocol. CT dose reduction technique was used, including Automated ExposureControl. FINDINGS: There is a mildly displaced fracture of the calcaneus involving the tuberosity. The fracture does not extend into the joints. Fracture gap measures up to 6 mm at the plantar aspect (series 8 image 45). There isno dislocation. There is mild soft tissue edema. A splint is present. IMPRESSION: Mild displaced calcaneal fracture. Report dictated by Jarocho Alejandra MD, (Motorbike Courier). > Dictated by Motorbike Courier I, Johnny Haynes MD have personally reviewed and interpreted this examination/study. > Interpreting Provider: Johnny Haynes MD on 02/16/2025 8:09 AM us Cj Power MD CT ORDERABLES Final Resu lt * XR Knee Left 2Vw or Less (02/15/2025 6:51 PM CDT) Anatomical Region Laterality Modality Lower Extremity Digital Radiogra phy 02/16/2025 2:26 PM CDT Impressions 02/16/2025 3:21 PM CDT IMPRESSION: 1.Suspected minimally displaced avulsion fracture of the fibular head apex. No tibial fracture seen. 2.Redemonstrated mildly displaced fracture of the plantar aspect of the calcaneus with separation proximally 6 mm. 3.No additional fractures identified in the foot. 4.3.4 cm masslike radiodensity superimposed with the midcalf soft tissues may represent heterotopic ossification versus calcified soft tissue mass; no adjacent bony reactions are noted. Recommend correlation with patient history and physical exam. This report was dictated by Quincy Lizama M.D. (/IR Resident). > Dictated by Motorbike Courier I, Vivi Donovan MD have personally reviewed and interpreted this examination/study. > Interpreting Provider: Vivi Donovan MD on 02/16/2025 3:21 PM Narrative 02/16/2025 3:21 PM CDT PROCEDURE: XR CALCANEUS LEFT 2VW OR MORE, XR TIBIA FIBULA LEFT 2VW, XR KNEE LEFT 2VW OR LESS, XR ANKLE LEFT 3VW OR MORE, XR FOOT LEFT 3VW OR MORE, DATE/TIME OF EXAM: 02/15/2025 5:59 PM, LOCATION [facility] INDICATION: T14.90XA: Trauma ADDITIONAL CLINICAL INFORMATION: Ordering Provider Reason For Exam: fx? (accession [id number]), fx (accession [id number]), fx (accession [id number]), Post splint (accession [id number]), fx (accession [id number]) COMPARISON: Left ankle radiographs 02/15/2025; CT of the left foot 02/15/2025 FINDINGS: Bones appear demineralized. LEFT KNEE RADIOGRAPHS 02/15/2025 AT 6:32 PM: There is a cortical irregularity noted in the posterior aspect of the fibular head apex which may represent a minimally displaced avulsion fracture. No other fractures or dislocations are identified. Mild tricompartmental osteoarthrosis is present. No joint effusion is seen. Atherosclerotic changes are noted in the knee vasculature. LEFT TIBIA-FIBULA RADIOGRAPHS 02/15/2025 AT 6:31 PM: A soft posterior splint is in place which may obscure fine osseous and soft tissue details. Again seen is a cortical irregularity in the posterior aspect of the fibular head apex suspicious for a minimally displaced avulsion fracture. A 3.4 cm masslike radiodensity is superimposed with the midcalf soft tissues, only seen on the crosstable lateral view. No adjacent periosteal reaction or cortical irregularity is noted. This may be heterotopic ossification of the soft tissues related to prior trauma versus calcified soft tissue mass. Recommend correlation with physical exam and clinical history. LEFT ANKLE RADIOGRAPHS 02/15/2025 AT 6:27 PM LEFT CALCANEUS RADIOGRAPHS AT 5:21 PM ON 02/15/2025: Calcaneal radiographs redemonstrate a curvilinear lucency with cortical separation of approximately 6 mm at the plantar aspect of the calcaneus posteriorly consistent with mildly displaced fracture seen on CT 02/15/2025 at 9:09 PM. Plantar calcaneal spurring is present. On dedicated left ankle radiographs, a soft splint has been applied which obscures fine osseous and soft tissue details. No additional fractures or dislocations are identified. The ankle mortise is intact. Soft tissue swelling is present. LEFT FOOT RADIOGRAPHS 02/15/2005 AT 5:23 PM: Calcaneus fracture as described above. The osseous structures are otherwise intact and well aligned without acute fracture or dislocation. The joint spaces are preserved. Diffuse soft tissue swelling is present. No radiodense foreign body or soft tissue gas identified. Procedure Note Vivi Donovan MD - 02/16/2025 PROCEDURE: XR CALCANEUS LEFT 2VW OR MORE, XR TIBIA FIBULA LEFT 2VW, XR KNEE LEFT 2VW OR LESS, XR ANKLE LEFT 3VW OR MORE, XR FOOT LEFT 3VW ORMORE, DATE/TIME OF EXAM: 02/15/2025 5:59 PM, LOCATION [facility] INDICATION: T14.90XA: Trauma ADDITIONAL CLINICAL INFORMATION: Ordering Provider Reason For Exam: fx? (accession [id number]), fx (accession [id number]), fx (accession [id number]), Post splint (accession [id number]), fx (accession [id number]) COMPARISON: Left ankle radiographs 02/15/2025; CT of the left foot 02/15/2025 FINDINGS: Bones appear demineralized. LEFT KNEE RADIOGRAPHS 02/15/2025 AT 6:32 PM: There is a cortical irregularity noted in the posterior aspect of the fibular head apex which may represent a minimally displaced avulsion fracture. No other fractures or dislocations are identified. Mild tricompartmental osteoarthrosis is present. No joint effusion is seen. Atherosclerotic changes are noted in the knee vasculature. LEFT TIBIA-FIBULA RADIOGRAPHS 02/15/2025 AT 6:31 PM: A soft posterior splint is in place which may obscure fine osseous andsoft tissue details. Again seen is a cortical irregularity in the posterior aspect of the fibular head apex suspicious for a minimally displaced avulsion fracture.A 3.4 cm masslike radiodensity is superimposed with the midcalf softtissues, only seen on the crosstable lateral view. No adjacent periostealreaction or cortical irregularity is noted. This may be heterotopic ossificationof the soft tissues related to prior trauma versus calcified soft tissuemass. Recommend correlation with physical exam and clinical history. LEFT ANKLE RADIOGRAPHS 02/15/2025 AT 6:27 PM LEFT CALCANEUS RADIOGRAPHS AT 5:21 PM ON 02/15/2025: Calcaneal radiographs redemonstrate a curvilinear lucency with cortical separation of approximately 6 mm at the plantar aspect of the calcaneus posteriorly consistent with mildly displaced fracture seen on CT02/15/2025 at 9:09 PM. Plantar calcaneal spurring is present. On dedicated leftankle radiographs, a soft splint has been applied which obscures fine osseousand soft tissue details. No additional fractures or dislocations are identified. The ankle mortise is intact. Soft tissue swelling ispresent. LEFT FOOT RADIOGRAPHS 02/15/2005 AT 5:23 PM: Calcaneus fracture as described above. The osseous structures areotherwise intact and well aligned without acute fracture or dislocation. The joint spaces are preserved. Diffuse soft tissue swelling is present. No radiodense foreign body or soft tissue gas identified. IMPRESSION: 1.Suspected minimally displaced avulsion fracture of the fibular headapex. No tibial fracture seen. 2.Redemonstrated mildly displaced fracture of the plantar aspect of the calcaneus with separation proximally 6 mm. 3.No additional fractures identified in the foot. 4.3.4 cm masslike radiodensity superimposed with the midcalf softtissues may represent heterotopic ossification versus calcified soft tissuemass; no adjacent bony reactions are noted. Recommend correlation with patient history and physical exam. This report was dictated by Quincy Lizama M.D. (/IR Resident). > Dictated by [employer]orbike Courier I, Vivi Donovan MD have personally reviewed and interpreted this examination/study. > Interpreting Provider: Vivi Donovan MD on 02/16/2025 3:21 PM Cj Power MD DIAGNOSTIC IMAGING ORDERAB LES Final Result * XR Ankle Left 3Vw or More (02/15/2025 6:51 PM CDT) Only the most recent of2 resultswithin the time period is included. Anatomical Region Laterality Modality Lower Extremity Digital Radiogra phy 02/16/2025 2:26 PM CDT Impressions 02/16/2025 3:21 PM CDT IMPRESSION: 1.Suspected minimally displaced avulsion fracture of the fibular head apex. No tibial fracture seen. 2.Redemonstrated mildly displaced fracture of the plantar aspect of the calcaneus with separation proximally 6 mm. 3.No additional fractures identified in the foot. 4.3.4 cm masslike radiodensity superimposed with the midcalf soft tissues may represent heterotopic ossification versus calcified soft tissue mass; no adjacent bony reactions are noted. Recommend correlation with patient history and physical exam. This report was dictated by Quincy Lizama M.D. (/IR Resident). > Dictated by Motorbike Courier I, Vivi Donovan MD have personally reviewed and interpreted this examination/study. > Interpreting Provider: Vivi Donovan MD on 02/16/2025 3:21 PM Narrative 02/16/2025 3:21 PM CDT PROCEDURE: XR CALCANEUS LEFT 2VW OR MORE, XR TIBIA FIBULA LEFT 2VW, XR KNEE LEFT 2VW OR LESS, XR ANKLE LEFT 3VW OR MORE, XR FOOT LEFT 3VW OR MORE, DATE/TIME OF EXAM: 02/15/2025 5:59 PM, LOCATION [facility] INDICATION: T14.90XA: Trauma ADDITIONAL CLINICAL INFORMATION: Ordering Provider Reason For Exam: fx? (accession [id number]), fx (accession [id number]), fx (accession [id number]), Post splint (accession [id number]), fx (accession [id number]) COMPARISON: Left ankle radiographs 02/15/2025; CT of the left foot 02/15/2025 FINDINGS: Bones appear demineralized. LEFT KNEE RADIOGRAPHS 02/15/2025 AT 6:32 PM: There is a cortical irregularity noted in the posterior aspect of the fibular head apex which may represent a minimally displaced avulsion fracture. No other fractures or dislocations are identified. Mild tricompartmental osteoarthrosis is present. No joint effusion is seen. Atherosclerotic changes are noted in the knee vasculature. LEFT TIBIA-FIBULA RADIOGRAPHS 02/15/2025 AT 6:31 PM: A soft posterior splint is in place which may obscure fine osseous and soft tissue details. Again seen is a cortical irregularity in the posterior aspect of the fibular head apex suspicious for a minimally displaced avulsion fracture. A 3.4 cm masslike radiodensity is superimposed with the midcalf soft tissues, only seen on the crosstable lateral view. No adjacent periosteal reaction or cortical irregularity is noted. This may be heterotopic ossification of the soft tissues related to prior trauma versus calcified soft tissue mass. Recommend correlation with physical exam and clinical history. LEFT ANKLE RADIOGRAPHS 02/15/2025 AT 6:27 PM LEFT CALCANEUS RADIOGRAPHS AT 5:21 PM ON 02/15/2025: Calcaneal radiographs redemonstrate a curvilinear lucency with cortical separation of approximately 6 mm at the plantar aspect of the calcaneus posteriorly consistent with mildly displaced fracture seen on CT 02/15/2025 at 9:09 PM. Plantar calcaneal spurring is present. On dedicated left ankle radiographs, a soft splint has been applied which obscures fine osseous and soft tissue details. No additional fractures or dislocations are identified. The ankle mortise is intact. Soft tissue swelling is present. LEFT FOOT RADIOGRAPHS 02/15/2005 AT 5:23 PM: Calcaneus fracture as described above. The osseous structures are otherwise intact and well aligned without acute fracture or dislocation. The joint spaces are preserved. Diffuse soft tissue swelling is present. No radiodense foreign body or soft tissue gas identified. Procedure Note Vivi Donovan MD - 02/16/2025 PROCEDURE: XR CALCANEUS LEFT 2VW OR MORE, XR TIBIA FIBULA LEFT 2VW, XR KNEE LEFT 2VW OR LESS, XR ANKLE LEFT 3VW OR MORE, XR FOOT LEFT 3VW ORMORE, DATE/TIME OF EXAM: 02/15/2025 5:59 PM, LOCATION [facility] INDICATION: T14.90XA: Trauma ADDITIONAL CLINICAL INFORMATION: Ordering Provider Reason For Exam: fx? (accession [id number]), fx (accession [id number]), fx (accession [id number]), Post splint (accession [id number]), fx (accession [id number]) COMPARISON: Left ankle radiographs 02/15/2025; CT of the left foot 02/15/2025 FINDINGS: Bones appear demineralized. LEFT KNEE RADIOGRAPHS 02/15/2025 AT 6:32 PM: There is a cortical irregularity noted in the posterior aspect of the fibular head apex which may represent a minimally displaced avulsion fracture. No other fractures or dislocations are identified. Mild tricompartmental osteoarthrosis is present. No joint effusion is seen. Atherosclerotic changes are noted in the knee vasculature. LEFT TIBIA-FIBULA RADIOGRAPHS 02/15/2025 AT 6:31 PM: A soft posterior splint is in place which may obscure fine osseous andsoft tissue details. Again seen is a cortical irregularity in the posterior aspect of the fibular head apex suspicious for a minimally displaced avulsion fracture.A 3.4 cm masslike radiodensity is superimposed with the midcalf softtissues, only seen on the crosstable lateral view. No adjacent periostealreaction or cortical irregularity is noted. This may be heterotopic ossificationof the soft tissues related to prior trauma versus calcified soft tissuemass. Recommend correlation with physical exam and clinical history. LEFT ANKLE RADIOGRAPHS 02/15/2025 AT 6:27 PM LEFT CALCANEUS RADIOGRAPHS AT 5:21 PM ON 02/15/2025: Calcaneal radiographs redemonstrate a curvilinear lucency with cortical separation of approximately 6 mm at the plantar aspect of the calcaneus posteriorly consistent with mildly displaced fracture seen on CT02/15/2025 at 9:09 PM. Plantar calcaneal spurring is present. On dedicated leftankle radiographs, a soft splint has been applied which obscures fine osseousand soft tissue details. No additional fractures or dislocations are identified. The ankle mortise is intact. Soft tissue swelling ispresent. LEFT FOOT RADIOGRAPHS 02/15/2005 AT 5:23 PM: Calcaneus fracture as described above. The osseous structures areotherwise intact and well aligned without acute fracture or dislocation. The joint spaces are preserved. Diffuse soft tissue swelling is present. No radiodense foreign body or soft tissue gas identified. IMPRESSION: 1.Suspected minimally displaced avulsion fracture of the fibular headapex. No tibial fracture seen. 2.Redemonstrated mildly displaced fracture of the plantar aspect of the calcaneus with separation proximally 6 mm. 3.No additional fractures identified in the foot. 4.3.4 cm masslike radiodensity superimposed with the midcalf softtissues may represent heterotopic ossification versus calcified soft tissuemass; no adjacent bony reactions are noted. Recommend correlation with patient history and physical exam. This report was dictated by Quincy Lizama M.D. (DR/IR Resident). > Dictated by [employer]ike Courier I, Vivi Donovan MD have personally reviewed and interpreted this examination/study. > Interpreting Provider: Vivi Donovan MD on 02/16/2025 3:21 PM Cj Power MD DIAGNOSTIC IMAGING ORDERAB LES Final Result * XR Elbow Right 3Vw or More (02/15/2025 6:02 PM CDT) Anatomical Region Laterality Modality Upper Extremity Digital Radiogra phy 02/16/2025 2:35 PM CDT Impressions 02/16/2025 4:06 PM CDT IMPRESSION: 1. No acute fracture or dislocation identified. 2. There is a subtle cortical deformity versus osseous body at the level of the head of the first proximal phalanx which may represent an age indeterminate healed fracture versus sesamoid bone. The report is dictated by Waqas Khan MD, (resident in diagnostic radiology) 02/16/2025 2:53 PM. > Dictated by [employer]ike Courier I, Vivi Donovan MD have personally reviewed and interpreted this examination/study. > Interpreting Provider: Vivi Donovan MD on 02/16/2025 4:06 PM Narrative 02/16/2025 4:06 PM CDT PROCEDURE: XR SHOULDER RIGHT 2VW OR MORE, XR HAND RIGHT 3VW OR MORE, XR ELBOW RIGHT 3VW OR MORE, XR WRIST RIGHT 3VW OR MORE, DATE/TIME OF EXAM: 02/15/2025 6:01 PM, LOCATION [facility] INDICATION: T14.90XA: Trauma ADDITIONAL CLINICAL INFORMATION: Ordering Provider Reason For Exam: fx (accession [id number]), fx (accession [id number]), fx? (accession [id number]), fx? (accession [id number]) COMPARISON: Single view chest radiograph and CT chest abdomen pelvis 02/15/2025 FINDINGS: Right shoulder: Examination limited due to suboptimal AP positioning however, the osseous structures are intact without acute fracture. The glenohumeral and acromioclavicular joints are in anatomic alignment. The bones are mildly diffusely demineralized. Right elbow: The osseous structures are intact and well aligned without acute fracture or dislocation. The joint spaces are preserved. No joint effusion is seen. The bones are mildly diffusely demineralized. No soft tissue swelling is present. Right wrist: The carpal rows appear intact. The osseous structures are intact and well aligned without acute fracture or dislocation. There is mild osteoarthritic change most prominent at the first carpal metacarpal joint. The bones are mildly diffusely demineralized. No soft tissue swelling is present. Right hand: Visualization of the second distal phalanx obscured due to pulse oximeter. There is a cortical deformity at the head of the first proximal phalanx which may represent an age indeterminate fracture versus sesamoid bone. The additional osseous structures are intact and well aligned without acute fracture or dislocation. The joint spaces are preserved. The bones are mildly diffusely demineralized. No significant soft tissue swelling is present. Procedure Note Vivi Donovan MD - 02/16/2025 PROCEDURE: XR SHOULDER RIGHT 2VW OR MORE, XR HAND RIGHT 3VW OR MORE, XR ELBOW RIGHT 3VW OR MORE, XR WRIST RIGHT 3VW OR MORE, DATE/TIME OF EXAM: 02/15/2025 6:01 PM, LOCATION [facility] INDICATION: T14.90XA: Trauma ADDITIONAL CLINICAL INFORMATION: Ordering Provider Reason For Exam: fx (accession [id number]), fx(accession [id number]), fx? (accession [id number]), fx? (accession [id number]) COMPARISON: Single view chest radiograph and CT chest abdomen pelvis 02/15/2025 FINDINGS: Right shoulder: Examination limited due to suboptimal AP positioning however, theosseous structures are intact without acute fracture. The glenohumeral and acromioclavicular joints are in anatomic alignment. The bones are mildly diffusely demineralized. Right elbow: The osseous structures are intact and well aligned without acutefracture or dislocation. The joint spaces are preserved. No joint effusion isseen. The bones are mildly diffusely demineralized. No soft tissue swelling is present. Right wrist: The carpal rows appear intact. The osseous structures are intact andwell aligned without acute fracture or dislocation. There is mildosteoarthritic change most prominent at the first carpal metacarpal joint. The bonesare mildly diffusely demineralized. No soft tissue swelling is present. Right hand: Visualization of the second distal phalanx obscured due to pulseoximeter. There is a cortical deformity at the head of the first proximal phalanx which may represent an age indeterminate fracture versus sesamoid bone.The additional osseous structures are intact and well aligned without acute fracture or dislocation. The joint spaces are preserved. The bones are mildly diffusely demineralized. No significant soft tissue swelling is present. IMPRESSION: 1. No acute fracture or dislocation identified. 2. There is a subtle cortical deformity versus osseous body at the levelof the head of the first proximal phalanx which may represent an age indeterminate healed fracture versus sesamoid bone. The report is dictated by Waqas Khan MD, (resident in diagnostic radiology)02/16/2025 2:53 PM. > Dictated by [employer] Courier I, Vivi Donovan MD have personally reviewed and interpreted this examination/study. > Interpreting Provider: Vivi Donovan MD on 02/16/2025 4:06 PM Cyndi Hernandez MD DIAGNOSTIC IMAGING ORDERABLES Final Result * XR Wrist Right 3Vw or More (02/15/2025 6:01 PM CDT) Anatomical Region Laterality Modality Wrist / Hand Digital Radiogra phy 02/16/2025 2:35 PM CDT Impressions 02/16/2025 4:06 PM CDT IMPRESSION: 1. No acute fracture or dislocation identified. 2. There is a subtle cortical deformity versus osseous body at the level of the head of the first proximal phalanx which may represent an age indeterminate healed fracture versus sesamoid bone. The report is dictated by Waqas Khan MD, (resident in diagnostic radiology) 02/16/2025 2:53 PM. > Dictated by [employer]ike Courier I, Vivi Donovan MD have personally reviewed and interpreted this examination/study. > Interpreting Provider: Vivi Donovan MD on 02/16/2025 4:06 PM Narrative 02/16/2025 4:06 PM CDT PROCEDURE: XR SHOULDER RIGHT 2VW OR MORE, XR HAND RIGHT 3VW OR MORE, XR ELBOW RIGHT 3VW OR MORE, XR WRIST RIGHT 3VW OR MORE, DATE/TIME OF EXAM: 02/15/2025 6:01 PM, LOCATION [facility] INDICATION: T14.90XA: Trauma ADDITIONAL CLINICAL INFORMATION: Ordering Provider Reason For Exam: fx (accession [id number]), fx (accession [id number]), fx? (accession [id number]), fx? (accession [id number]) COMPARISON: Single view chest radiograph and CT chest abdomen pelvis 02/15/2025 FINDINGS: Right shoulder: Examination limited due to suboptimal AP positioning however, the osseous structures are intact without acute fracture. The glenohumeral and acromioclavicular joints are in anatomic alignment. The bones are mildly diffusely demineralized. Right elbow: The osseous structures are intact and well aligned without acute fracture or dislocation. The joint spaces are preserved. No joint effusion is seen. The bones are mildly diffusely demineralized. No soft tissue swelling is present. Right wrist: The carpal rows appear intact. The osseous structures are intact and well aligned without acute fracture or dislocation. There is mild osteoarthritic change most prominent at the first carpal metacarpal joint. The bones are mildly diffusely demineralized. No soft tissue swelling is present. Right hand: Visualization of the second distal phalanx obscured due to pulse oximeter. There is a cortical deformity at the head of the first proximal phalanx which may represent an age indeterminate fracture versus sesamoid bone. The additional osseous structures are intact and well aligned without acute fracture or dislocation. The joint spaces are preserved. The bones are mildly diffusely demineralized. No significant soft tissue swelling is present. Procedure Note Vivi Donovan MD - 02/16/2025 PROCEDURE: XR SHOULDER RIGHT 2VW OR MORE, XR HAND RIGHT 3VW OR MORE, XR ELBOW RIGHT 3VW OR MORE, XR WRIST RIGHT 3VW OR MORE, DATE/TIME OF EXAM: 02/15/2025 6:01 PM, LOCATION [facility] INDICATION: T14.90XA: Trauma ADDITIONAL CLINICAL INFORMATION: Ordering Provider Reason For Exam: fx (accession [id number]), fx(accession [id number]), fx? (accession [id number]), fx? (accession [id number]) COMPARISON: Single view chest radiograph and CT chest abdomen pelvis 02/15/2025 FINDINGS: Right shoulder: Examination limited due to suboptimal AP positioning however, theosseous structures are intact without acute fracture. The glenohumeral and acromioclavicular joints are in anatomic alignment. The bones are mildly diffusely demineralized. Right elbow: The osseous structures are intact and well aligned without acutefracture or dislocation. The joint spaces are preserved. No joint effusion isseen. The bones are mildly diffusely demineralized. No soft tissue swelling is present. Right wrist: The carpal rows appear intact. The osseous structures are intact andwell aligned without acute fracture or dislocation. There is mildosteoarthritic change most prominent at the first carpal metacarpal joint. The bonesare mildly diffusely demineralized. No soft tissue swelling is present. Right hand: Visualization of the second distal phalanx obscured due to pulseoximeter. There is a cortical deformity at the head of the first proximal phalanx which may represent an age indeterminate fracture versus sesamoid bone.The additional osseous structures are intact and well aligned without acute fracture or dislocation. The joint spaces are preserved. The bones are mildly diffusely demineralized. No significant soft tissue swelling is present. IMPRESSION: 1. No acute fracture or dislocation identified. 2. There is a subtle cortical deformity versus osseous body at the levelof the head of the first proximal phalanx which may represent an age indeterminate healed fracture versus sesamoid bone. The report is dictated by Waqas Khan MD, (resident in diagnostic radiology)02/16/2025 2:53 PM. > Dictated by [employer], Vivi Donovan MD have personally reviewed and interpreted this examination/study. > Interpreting Provider: Vivi Donovan MD on 02/16/2025 4:06 PM Cyndi Hernandez MD DIAGNOSTIC IMAGING ORDERABLES Final Result * XR Shoulder Right 2Vw or More (02/15/2025 6:01 PM CDT) Anatomical Region Laterality Modality Upper Extremity Digital Radiogra phy 02/16/2025 2:35 PM CDT Impressions 02/16/2025 4:06 PM CDT IMPRESSION: 1. No acute fracture or dislocation identified. 2. There is a subtle cortical deformity versus osseous body at the level of the head of the first proximal phalanx which may represent an age indeterminate healed fracture versus sesamoid bone. The report is dictated by Waqas Khan MD, (resident in diagnostic radiology) 02/16/2025 2:53 PM. > Dictated by [employer], Vivi Donovan MD have personally reviewed and interpreted this examination/study. > Interpreting Provider: Vivi Donovan MD on 02/16/2025 4:06 PM Narrative 02/16/2025 4:06 PM CDT PROCEDURE: XR SHOULDER RIGHT 2VW OR MORE, XR HAND RIGHT 3VW OR MORE, XR ELBOW RIGHT 3VW OR MORE, XR WRIST RIGHT 3VW OR MORE, DATE/TIME OF EXAM: 02/15/2025 6:01 PM, LOCATION [facility] INDICATION: T14.90XA: Trauma ADDITIONAL CLINICAL INFORMATION: Ordering Provider Reason For Exam: fx (accession [id number]), fx (accession [id number]), fx? (accession [id number]), fx? (accession [id number]) COMPARISON: Single view chest radiograph and CT chest abdomen pelvis 02/15/2025 FINDINGS: Right shoulder: Examination limited due to suboptimal AP positioning however, the osseous structures are intact without acute fracture. The glenohumeral and acromioclavicular joints are in anatomic alignment. The bones are mildly diffusely demineralized. Right elbow: The osseous structures are intact and well aligned without acute fracture or dislocation. The joint spaces are preserved. No joint effusion is seen. The bones are mildly diffusely demineralized. No soft tissue swelling is present. Right wrist: The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 Note: Additional: COMPARISON: None. TECHNIQUE: CT angiography of the chest, abdomen, pelvis, and lower extremities was performed following the uneventful administration of 100mL of Isovue 370 intravenous contrast according to standard protocol with venous delayed phase imaging. Three dimensional postprocessing was performed by the technologist and sent to the workstation for review. Findings: Thoracic aorta: No aortic dissection, intramural hematoma, penetrating atherosclerotic ulcer, or aneurysm. Calcific atherosclerosis. Thoracic aortic branches: Subclavian arteries: Atherosclerotic but patent without significantfocal stenosis. Brachiocephalic artery: Atherosclerotic but patent without significant focal stenosis. Pulmonary artery: Normal. Coronary arteries: Calcific atherosclerosis. Abdominal aorta: Extensive calcified and noncalcified atherosclerotic plaques without significant focal stenosis or aneurysm. Celiac axis and major branches: No significant stenosis. Severe calcification of the splenic artery with multifocal severe stenosis. Superior mesenteric artery: Atherosclerotic with mild multifocalstenoses. Inferior mesenteric artery: Atherosclerotic with mild multifocalstenoses. Right renal artery: Patent without significant focal stenosis. Left renal artery: Atherosclerotic with mild multifocal stenoses. Right common iliac artery: Atherosclerotic with mild multifocalstenoses. Right internal iliac artery: Atherosclerotic with moderate multifocal stenoses. Right external iliac artery: Atherosclerotic but patent withoutsignificant focal stenosis. Right common femoral artery: Patent without significant focal stenosis. Right profunda femoris artery: Atherosclerotic with moderate multifocal stenoses. Right superficial femoral artery: Complete occlusion. Right popliteal artery: Supplied via collateral flow. Atheroscleroticwith severe multifocal stenoses. Right anterior tibial artery: Multifocal severe stenosis and occlusionof the in the mid segment with reconstitution distally from collateralsfrom peroneal artery and superficial collaterals. This vessel crosses theankle and supplies the dorsalis pedis artery. Right tibioperoneal trunk: Atherosclerotic with severe multifocalstenoses. Right posterior tibial artery: Occluded with reconstitution distallyfrom superficial collaterals. This vessel crosses the ankle and supplies the plantar artery. Right peroneal artery: Occluded with reconstitution distally from superficial collaterals. Left common iliac artery: Atherosclerotic with mild multifocal stenoses. Left internal iliac artery: Atherosclerotic with severe multifocal stenoses. Left external iliac artery: Atherosclerotic with mild multifocalstenoses. Left common femoral artery: Atherosclerotic with moderate multifocal stenoses. Left profunda femoris artery: Atherosclerotic with moderate multifocal stenoses. Left superficial femoral artery: Multifocal severe stenosis with a short segment occlusion in the mid segment. Left popliteal artery: Occluded Left anterior tibial artery: Supplied via collaterals with mildmultifocal stenoses. This vessel crosses the ankle and supplies the dorsalis pedis artery. Left tibioperoneal trunk: occluded Left posterior tibial artery: Multifocal stenosis with occlusion in themid segment. Diminutive plantar arteries visualized with multifocalstenosis. Left peroneal artery: Atherosclerotic with severe multifocal stenoses. Chest: Lower Neck and Axillae: Multinodular thyroid gland. Lungs: Bilateral dependent and basilar atelectasis. No suspicious pulmonary nodules are identified. No pleural fluid or pneumothorax is present. Heart and Pericardium: The cardiac chambers are normal in size. No pericardial fluid orthickening is present. Mediastinum and Eliana: No enlarged lymph nodes are present. Abdomen/pelvis and lower extremities: Liver: Normal. Gallbladder and Bile Ducts: Normal. Spleen: Normal. Pancreas: Pancreatic divisum. Adrenals: Normal. Kidneys: Right ureteral hyperenhancement. Gastrointestinal: The stomach and visualized loops of small bowel are unremarkable. Diverticulosis without diverticulitis. Normal appendix. Mesentery/Peritoneum/Retroperitoneum: No free intraperitoneal air. No free fluid in the abdomen or pelvis. Bladder: Normal. Reproductive Organs: The uterus is absent. Bones: Bone windows demonstrate no suspicious lytic or blastic lesions. Degenerative changes are seen in the spine. Intra-articular fractures of the right 1st proximal phalange. Softtissue stranding at the medial aspect of the right patella. Nondisplacedfracture of the right 1st rib. Fractures of the left anterior/lateral 2nd-9thribs. Third through fifth ones are segmental. An incomplete fracture of the sternum is seen with minimal adjacent soft tissue edema. Mildly displaced calcaneal fracture. There is an acute fracture of the superior endplate of L1 vertebral body with no significant height loss. Acute nondisplaced fracture of the left fibular head (series 17 ). Soft tissues: Normal. Impression: 1.Nondisplaced fracture of the right 1st rib. Fractures of the left anterior/lateral 2nd-9th ribs. Third through fifth ones are segmental. 2.Trace right greater than left pneumothoraces. 3.An incomplete fracture of the sternum with minimal adjacent softtissue edema. 4.Acute fracture of the superior endplate of L1 vertebral body with no significant height loss. 5.Mildly displaced left calcaneal fracture. 6.Intra-articular fractures of the right 1st proximal phalange. Softtissue stranding at the medial aspect of the right patella. 7.Acute nondisplaced fracture of the left fibular head (series 17 image 222). 8.Complete occlusion of the right superficial femoral artery with the popliteal artery being supplied via collateral flow. Multiple additional bilateral severe stenoses and complete occlusions as detailed above. 9.Right ureteral hyperenhancement may indicate ureteritis. Correlatewith urinalysis. Preliminary findings were discussed with the patient's care provider,Dr. Mcintosh by Dr. Vasquez via telephone at 3:20 PM on 02/15/2025 withreadback comprehension and verification. > Dictated by Arlene Vasquez MD (resident in diagnostic radiology). > Dictated by Arlene Vasquez MD 02/15/2025 1:28 PM > Dictated by [employer], Yajaira Anderson have personally reviewed and interpreted this examination/study. > Interpreting Provider: Yajaira Anderson on 02/15/2025 3:41 PM us Cyndi Hernandez MD CT ORDERABLES Final Result * CT LUMBAR SPINE WO CONTRAST - T/L-spine trauma, Spine fracture (02/15/2025 12:23 PM CDT) Anatomical Region Laterality Modality Spine Computed Tomogra phy 02/15/2025 1:11 PM CDT Impressions 02/15/2025 3:52 PM CDT IMPRESSION: 1.No acute intracranial hemorrhage, midline shift, or significant mass effect. 2.Age-indeterminate left nasal bone fracture. Otherwise no acute facial bone fractures identified. 3.Left periorbital hematoma without evidence of globe rupture. 4.Acute nondisplaced right C6 and C7 transverse process fractures. 5.Acute right first and left second through eighth rib fractures. 6.Age-indeterminate anterior wedge compression fractures of T1 and T2 with 10% or less vertebral body height loss. These are stable fractures. 7.Acute mildly displaced sternal body fracture. 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 9.Acute anterior wedge compression fracture of L1 vertebral body with less than 10% of height loss. Acute nondisplaced fractures of right L2 and L3 transverse processes. These are stable fractures. These findings were discussed in detail with the patient's care provider, Dr. Brenna Schaefer by Dr. Linda Oropeza via telephone at 2:23 PM on 02/15/2025 with readback comprehension and verification. Location The report was drafted by Linda Oropeza MD (resident in diagnostic radiology) 02/15/2025 1:12 PM. > Dictated by Linda Oropeza MD 02/15/2025 1:11 PM > Dictated by [employer], Alexandria Guadalupe MD have personally reviewed and interpreted this examination/study. > Interpreting Provider: Alexandria Guadalupe MD on 02/15/2025 3:52 PM Narrative 02/15/2025 3:52 PM CDT PROCEDURE: CT HEAD WO CONTRAST, CT LUMBAR SPINE WO CONTRAST, CT THORACIC SPINE WO CONTRAST, CT CERVICAL SPINE WO CONTRAST, CT FACIAL BONES WO CONTRAST, DATE/TIME OF EXAM: 02/15/2025 12:25 PM, LOCATION [facility] INDICATION: T14.90XA: Trauma ADDITIONAL CLINICAL INFORMATION: Ordering Provider Reason For Exam: Technologist Note: Additional: COMPARISON: None. TECHNIQUE: CT of the head, cervical spine, and maxillofacial bones, orbits, and paranasal sinuses was performed without contrast according to standard protocol. Reformatted axial, sagittal, and coronal images of the thoracic and lumbar spine were obtained by the technologist from a concurrently performed body CT and sent to the workstation for review. COMPARISON: No prior study is available for comparison at the time of this dictation. FINDINGS: Head: No acute intra- or extra-axial fluid collections are identified. There is moderate cerebral volume loss. The basilar cisterns are patent. No mass effect or midline shift is seen. A large area of encephalomalacia in the right frontal, parietal, and temporal lobes in the right MCA territory territory most likely reflects an old infarct. A chronic lacunar infarcts are also seen in the left basal ganglia. There is ex vacuo ventricular dilatation of right lateral ventricle secondary to suspected old right MCA infarct. The ventricles are midline without evidence of hydrocephalus. 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 No acute loss of oakes-white matter differentiation is seen. Periventricular white matter hypoattenuation is indicative of chronic small vessel ischemic disease. There is extensive vascular calcification of the carotid siphons and V4 segments of vertebral arteries. No acute calvarial fracture is identified. Incidental noted hyperostosis frontalis interna. Maxillofacial: There is an age indeterminate left nasal bone fracture (series 11 image 118). No other definite acute facial bone fractures are identified. The orbits appear normal. There is mild paranasal sinus disease. Mild leftward deviation of nasal septum and a bobbi bullosa of right middle turbinate are noted. The hard palate, mandible, and temporomandibular joints are intact. The mastoid air cells are clear. Incidental note of a torus palatinum. A left periorbital hematoma is present without evidence of globe rupture or injury. Cervical spine: Acute mildly displaced right transverse process fracture of C7 and C6 vertebral bodies. No scoliosis or spondylolisthesis is appreciated. Other than middle atlantoaxial joint osteoarthritis, the craniocervical junction appears normal. There is mild degenerative disc disease. Mild multilevel central canal stenosis due to disc protrusions. There are varying degrees of mild to moderate facet osteoarthritis. There are varying degrees of mild uncovertebral joint osteoarthritis No high-grade neural foraminal stenosis is seen. There is an acute right first rib fracture a small right apical pneumothorax. Extensive vascular calcifications are seen at the expected location of the bilateral carotid bifurcations. Soft tissue swelling in the right supraclavicular region and lower neck, in the region of the acute right cervical spine fractures. Thoracic spine: There are age-indeterminate anterior wedge compression fractures of T1 and T2 with 10% or less vertebral body height loss (image 73, series 2). There is an acute sternal body fracture. There are also acute mildly to severely displaced and depressed left second through eighth anterolateral rib fractures. Increased thoracic kyphosis is due to multilevel disc height loss. No scoliosis or spondylolisthesis is appreciated. There is mild to moderate degenerative disc disease. No high-grade central canal stenosis is seen. There are varying degrees of mild facet osteoarthritis. There are varying degrees of neural foraminal stenosis at multiple levels, greatest at T8-T9 and T9-T10. There is subsegmental atelectasis in the dependent portions of the lung bases. There is diffuse heterogeneous enhancement of the thyroid gland. A filling defect in the left common carotid artery (series 503 image [id number]) represents a dissection flap but there is no high-grade stenosis. Atherosclerotic calcifications are noted in the thoracic aorta and its branch vessels. Atherosclerotic calcifications are present in the coronary arteries. Lumbar spine: There is an acute compression fracture of L1 vertebral body with less than 10% of height loss. Additional acute nondisplaced fractures of right transverse processes of L2 and L3 are noted. The lumbar spine is straightened which could be positional. No significant scoliosis or spondylolisthesis is appreciated. There is mild to moderate degenerative disc disease, greatest at L5-S1. Mild to moderate spinal canal stenosis is seen in the mid to lower lumbar spine, greatest at L4-L5. There are varying degrees of mild facet osteoarthritis. Bilateral foraminal narrowing is seen in the mid to lower lumbar spine. There are extensive atherosclerotic calcification of the abdominal aorta and its branch vessels. Diffuse bowel wall thickening of rectum and sigmoid colon is noted. Procedure Note Alexandria Guadalupe MD - 02/15/2025 PROCEDURE: CT HEAD WO CONTRAST, CT LUMBAR SPINE WO CONTRAST, CTTHORACIC SPINE WO CONTRAST, CT CERVICAL SPINE WO CONTRAST, CT FACIAL BONES WO CONTRAST, DATE/TIME OF EXAM: 02/15/2025 12:25 PM, LOCATION [facility] INDICATION: T14.90XA: Trauma ADDITIONAL CLINICAL INFORMATION: Ordering Provider Reason For Exam: Technologist Note: Additional: COMPARISON: None. TECHNIQUE: CT of the head, cervical spine, and maxillofacial bones,orbits, and paranasal sinuses was performed without contrast according tostandard protocol. Reformatted axial, sagittal, and coronal images of thethoracic and lumbar spine were obtained by the technologist from a concurrently performed body CT and sent to the workstation for review. COMPARISON: No prior study is available for comparison at the time ofthis dictation. FINDINGS: Head: No acute intra- or extra-axial fluid collections are identified. There is moderate cerebral volume loss. The basilar cisterns are patent.No mass effect or midline shift is seen. A large area of encephalomalacia in the right frontal, parietal, and temporal lobes in the right MCA territory territory most likely reflectsan old infarct. A chronic lacunar infarcts are also seen in the left basal ganglia.There is ex vacuo ventricular dilatation of right lateral ventricle secondaryto suspected old right MCA infarct. The ventricles are midline without evidence of hydrocephalus. 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 No acute loss of oakes-white matter differentiation is seen.Periventricular white matter hypoattenuation is indicative of chronic small vesselischemic disease. There is extensive vascular calcification of the carotidsiphons and V4 segments of vertebral arteries. No acute calvarial fracture is identified. Incidental noted hyperostosis frontalis interna. Maxillofacial: There is an age indeterminate left nasal bone fracture (series 11 image 118). No other definite acute facial bone fractures are identified. The orbits appear normal. There is mild paranasal sinus disease. Mild leftward deviation of nasal septum and a bobbi bullosa of right middle turbinate are noted. The hard palate, mandible, and temporomandibular joints are intact. The mastoid air cells are clear. Incidental note of a torus palatinum. A left periorbital hematoma is present without evidence of globe ruptureor injury. Cervical spine: Acute mildly displaced right transverse process fracture of C7 and C6 vertebral bodies. No scoliosis or spondylolisthesis is appreciated. Other than middle atlantoaxial joint osteoarthritis, the craniocervical junction appears normal. There is mild degenerative disc disease. Mild multilevel central canal stenosis due to disc protrusions. There are varying degrees of mild to moderate facet osteoarthritis. There are varying degrees of mild uncovertebral joint osteoarthritis No high-grade neural foraminalstenosis is seen. There is an acute right first rib fracture a small right apical pneumothorax. Extensive vascular calcifications are seen at the expected location of the bilateral carotid bifurcations. Soft tissue swelling inthe right supraclavicular region and lower neck, in the region of the acute right cervical spine fractures. Thoracic spine: There are age-indeterminate anterior wedge compression fractures of T1and T2 with 10% or less vertebral body height loss (image 73, series 2). There is an acute sternal body fracture. There are also acute mildly to severely displaced and depressed left second through eighthanterolateral rib fractures. Increased thoracic kyphosis is due to multilevel disc height loss. No scoliosis or spondylolisthesis is appreciated. There is mild to moderate degenerative disc disease. No high-gradecentral canal stenosis is seen. There are varying degrees of mild facet osteoarthritis. There are varying degrees of neural foraminal stenosisat multiple levels, greatest at T8-T9 and T9-T10. There is subsegmental atelectasis in the dependent portions of the lung bases. There is diffuse heterogeneous enhancement of the thyroid gland. A filling defect in the left common carotid artery (series 503 [id number]) represents a dissection flap but there is no high-grade stenosis. Atherosclerotic calcifications are noted in the thoracic aorta and its branch vessels. Atherosclerotic calcifications are present in the coronary arteries. Lumbar spine: There is an acute compression fracture of L1 vertebral body with lessthan 10% of height loss. Additional acute nondisplaced fractures of right transverse processes ofL2 and L3 are noted. The lumbar spine is straightened which could be positional. Nosignificant scoliosis or spondylolisthesis is appreciated. There is mild to moderate degenerative disc disease, greatest at L5-S1. Mild to moderate spinal canal stenosis is seen in the mid to lowerlumbar spine, greatest at L4-L5. There are varying degrees of mild facet osteoarthritis. Bilateral foraminal narrowing is seen in the mid tolower lumbar spine. There are extensive atherosclerotic calcification of the abdominal aorta and its branch vessels. Diffuse bowel wall thickening of rectum andsigmoid colon is noted. IMPRESSION: 1.No acute intracranial hemorrhage, midline shift, or significant mass effect. 2.Age-indeterminate left nasal bone fracture. Otherwise no acute facial bone fractures identified. 3.Left periorbital hematoma without evidence of globe rupture. 4.Acute nondisplaced right C6 and C7 transverse process fractures. 5.Acute right first and left second through eighth rib fractures. 6.Age-indeterminate anterior wedge compression fractures of T1 and T2with 10% or less vertebral body height loss. These are stable fractures. 7.Acute mildly displaced sternal body fracture. 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 9.Acute anterior wedge compression fracture of L1 vertebral body withless than 10% of height loss. Acute nondisplaced fractures of right L2 and L3 transverse processes. These are stable fractures. These findings were discussed in detail with the patient's careprovider, Dr. Brenna Schaefer by Dr. Linda [facility]za via telephone at 2:23 PM on 02/15/2025 with readback comprehension and verification. Location The report was drafted by Linda Oropeza MD (resident in diagnostic radiology) 02/15/2025 1:12 PM. > Dictated by Linda Oropeza MD 02/15/2025 1:11 PM > Dictated by [employer] I, Alexandria Guadalupe MD have personally reviewed and interpreted this examination/study. > Interpreting Provider: Alexandria Guadalupe MD on 02/15/2025 3:52 PM us Cj Power MD CT ORDERABLES Final Resu lt * CT THORACIC SPINE WO CONTRAST - T/L-spine trauma, spine fracture (02/15/2025 12:23 PM CDT) Anatomical Region Laterality Modality Spine Computed Tomogra phy 02/15/2025 1:11 PM CDT Impressions 02/15/2025 3:52 PM CDT IMPRESSION: 1.No acute intracranial hemorrhage, midline shift, or significant mass effect. 2.Age-indeterminate left nasal bone fracture. Otherwise no acute facial bone fractures identified. 3.Left periorbital hematoma without evidence of globe rupture. 4.Acute nondisplaced right C6 and C7 transverse process fractures. 5.Acute right first and left second through eighth rib fractures. 6.Age-indeterminate anterior wedge compression fractures of T1 and T2 with 10% or less vertebral body height loss. These are stable fractures. 7.Acute mildly displaced sternal body fracture. 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 9.Acute anterior wedge compression fracture of L1 vertebral body with less than 10% of height loss. Acute nondisplaced fractures of right L2 and L3 transverse processes. These are stable fractures. These findings were discussed in detail with the patient's care provider, Dr. Brenna Schaefer by Dr. Linda Oropeza via telephone at 2:23 PM on 02/15/2025 with readback comprehension and verification. Location The report was drafted by Linda Oropeza MD (resident in diagnostic radiology) 02/15/2025 1:12 PM. > Dictated by Linda Oropeza MD 02/15/2025 1:11 PM > Dictated by [employer] I, Alexandria Guadalupe MD have personally reviewed and interpreted this examination/study. > Interpreting Provider: Alexandria Guadalupe MD on 02/15/2025 3:52 PM Narrative 02/15/2025 3:52 PM CDT PROCEDURE: CT HEAD WO CONTRAST, CT LUMBAR SPINE WO CONTRAST, CT THORACIC SPINE WO CONTRAST, CT CERVICAL SPINE WO CONTRAST, CT FACIAL BONES WO CONTRAST, DATE/TIME OF EXAM: 02/15/2025 12:25 PM, LOCATION [facility] INDICATION: T14.90XA: Trauma ADDITIONAL CLINICAL INFORMATION: Ordering Provider Reason For Exam: Technologist Note: Additional: COMPARISON: None. TECHNIQUE: CT of the head, cervical spine, and maxillofacial bones, orbits, and paranasal sinuses was performed without contrast according to standard protocol. Reformatted axial, sagittal, and coronal images of the thoracic and lumbar spine were obtained by the technologist from a concurrently performed body CT and sent to the workstation for review. COMPARISON: No prior study is available for comparison at the time of this dictation. FINDINGS: Head: No acute intra- or extra-axial fluid collections are identified. There is moderate cerebral volume loss. The basilar cisterns are patent. No mass effect or midline shift is seen. A large area of encephalomalacia in the right frontal, parietal, and temporal lobes in the right MCA territory territory most likely reflects an old infarct. A chronic lacunar infarcts are also seen in the left basal ganglia. There is ex vacuo ventricular dilatation of right lateral ventricle secondary to suspected old right MCA infarct. The ventricles are midline without evidence of hydrocephalus. 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 No acute loss of oakes-white matter differentiation is seen. Periventricular white matter hypoattenuation is indicative of chronic small vessel ischemic disease. There is extensive vascular calcification of the carotid siphons and V4 segments of vertebral arteries. No acute calvarial fracture is identified. Incidental noted hyperostosis frontalis interna. Maxillofacial: There is an age indeterminate left nasal bone fracture (series 11 image 118). No other definite acute facial bone fractures are identified. The orbits appear normal. There is mild paranasal sinus disease. Mild leftward deviation of nasal septum and a bobbi bullosa of right middle turbinate are noted. The hard palate, mandible, and temporomandibular joints are intact. The mastoid air cells are clear. Incidental note of a torus palatinum. A left periorbital hematoma is present without evidence of globe rupture or injury. Cervical spine: Acute mildly displaced right transverse process fracture of C7 and C6 vertebral bodies. No scoliosis or spondylolisthesis is appreciated. Other than middle atlantoaxial joint osteoarthritis, the craniocervical junction appears normal. There is mild degenerative disc disease. Mild multilevel central canal stenosis due to disc protrusions. There are varying degrees of mild to moderate facet osteoarthritis. There are varying degrees of mild uncovertebral joint osteoarthritis No high-grade neural foraminal stenosis is seen. There is an acute right first rib fracture a small right apical pneumothorax. Extensive vascular calcifications are seen at the expected location of the bilateral carotid bifurcations. Soft tissue swelling in the right supraclavicular region and lower neck, in the region of the acute right cervical spine fractures. Thoracic spine: There are age-indeterminate anterior wedge compression fractures of T1 and T2 with 10% or less vertebral body height loss (image 73, series 2). There is an acute sternal body fracture. There are also acute mildly to severely displaced and depressed left second through eighth anterolateral rib fractures. Increased thoracic kyphosis is due to multilevel disc height loss. No scoliosis or spondylolisthesis is appreciated. There is mild to moderate degenerative disc disease. No high-grade central canal stenosis is seen. There are varying degrees of mild facet osteoarthritis. There are varying degrees of neural foraminal stenosis at multiple levels, greatest at T8-T9 and T9-T10. There is subsegmental atelectasis in the dependent portions of the lung bases. There is diffuse heterogeneous enhancement of the thyroid gland. A filling defect in the left common carotid artery (series 503 image 33-26) represents a dissection flap but there is no high-grade stenosis. Atherosclerotic calcifications are noted in the thoracic aorta and its branch vessels. Atherosclerotic calcifications are present in the coronary arteries. Lumbar spine: There is an acute compression fracture of L1 vertebral body with less than 10% of height loss. Additional acute nondisplaced fractures of right transverse processes of L2 and L3 are noted. The lumbar spine is straightened which could be positional. No significant scoliosis or spondylolisthesis is appreciated. There is mild to moderate degenerative disc disease, greatest at L5-S1. Mild to moderate spinal canal stenosis is seen in the mid to lower lumbar spine, greatest at L4-L5. There are varying degrees of mild facet osteoarthritis. Bilateral foraminal narrowing is seen in the mid to lower lumbar spine. There are extensive atherosclerotic calcification of the abdominal aorta and its branch vessels. Diffuse bowel wall thickening of rectum and sigmoid colon is noted. Procedure Note Alexandria Guadalupe MD - 02/15/2025 PROCEDURE: CT HEAD WO CONTRAST, CT LUMBAR SPINE WO CONTRAST, CTTHORACIC SPINE WO CONTRAST, CT CERVICAL SPINE WO CONTRAST, CT FACIAL BONES WO CONTRAST, DATE/TIME OF EXAM: 02/15/2025 12:25 PM, LOCATION [facility] INDICATION: T14.90XA: Trauma ADDITIONAL CLINICAL INFORMATION: Ordering Provider Reason For Exam: Technologist Note: Additional: COMPARISON: None. TECHNIQUE: CT of the head, cervical spine, and maxillofacial bones,orbits, and paranasal sinuses was performed without contrast according tostandard protocol. Reformatted axial, sagittal, and coronal images of thethoracic and lumbar spine were obtained by the technologist from a concurrently performed body CT and sent to the workstation for review. COMPARISON: No prior study is available for comparison at the time ofthis dictation. FINDINGS: Head: No acute intra- or extra-axial fluid collections are identified. There is moderate cerebral volume loss. The basilar cisterns are patent.No mass effect or midline shift is seen. A large area of encephalomalacia in the right frontal, parietal, and temporal lobes in the right MCA territory territory most likely reflectsan old infarct. A chronic lacunar infarcts are also seen in the left basal ganglia.There is ex vacuo ventricular dilatation of right lateral ventricle secondaryto suspected old right MCA infarct. The ventricles are midline without evidence of hydrocephalus. 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 No acute loss of oakes-white matter differentiation is seen.Periventricular white matter hypoattenuation is indicative of chronic small vesselischemic disease. There is extensive vascular calcification of the carotidsiphons and V4 segments of vertebral arteries. No acute calvarial fracture is identified. Incidental noted hyperostosis frontalis interna. Maxillofacial: There is an age indeterminate left nasal bone fracture (series 11 image 118). No other definite acute facial bone fractures are identified. The orbits appear normal. There is mild paranasal sinus disease. Mild leftward deviation of nasal septum and a bobbi bullosa of right middle turbinate are noted. The hard palate, mandible, and temporomandibular joints are intact. The mastoid air cells are clear. Incidental note of a torus palatinum. A left periorbital hematoma is present without evidence of globe ruptureor injury. Cervical spine: Acute mildly displaced right transverse process fracture of C7 and C6 vertebral bodies. No scoliosis or spondylolisthesis is appreciated. Other than middle atlantoaxial joint osteoarthritis, the craniocervical junction appears normal. There is mild degenerative disc disease. Mild multilevel central canal stenosis due to disc protrusions. There are varying degrees of mild to moderate facet osteoarthritis. There are varying degrees of mild uncovertebral joint osteoarthritis No high-grade neural foraminalstenosis is seen. There is an acute right first rib fracture a small right apical pneumothorax. Extensive vascular calcifications are seen at the expected location of the bilateral carotid bifurcations. Soft tissue swelling inthe right supraclavicular region and lower neck, in the region of the acute right cervical spine fractures. Thoracic spine: There are age-indeterminate anterior wedge compression fractures of T1and T2 with 10% or less vertebral body height loss (image 73, series 2). There is an acute sternal body fracture. There are also acute mildly to severely displaced and depressed left second through eighthanterolateral rib fractures. Increased thoracic kyphosis is due to multilevel disc height loss. No scoliosis or spondylolisthesis is appreciated. There is mild to moderate degenerative disc disease. No high-gradecentral canal stenosis is seen. There are varying degrees of mild facet osteoarthritis. There are varying degrees of neural foraminal stenosisat multiple levels, greatest at T8-T9 and T9-T10. There is subsegmental atelectasis in the dependent portions of the lung bases. There is diffuse heterogeneous enhancement of the thyroid gland. A filling defect in the left common carotid artery (series 503 [id number]) represents a dissection flap but there is no high-grade stenosis. Atherosclerotic calcifications are noted in the thoracic aorta and its branch vessels. Atherosclerotic calcifications are present in the coronary arteries. Lumbar spine: There is an acute compression fracture of L1 vertebral body with lessthan 10% of height loss. Additional acute nondisplaced fractures of right transverse processes ofL2 and L3 are noted. The lumbar spine is straightened which could be positional. Nosignificant scoliosis or spondylolisthesis is appreciated. There is mild to moderate degenerative disc disease, greatest at L5-S1. Mild to moderate spinal canal stenosis is seen in the mid to lowerlumbar spine, greatest at L4-L5. There are varying degrees of mild facet osteoarthritis. Bilateral foraminal narrowing is seen in the mid tolower lumbar spine. There are extensive atherosclerotic calcification of the abdominal aorta and its branch vessels. Diffuse bowel wall thickening of rectum andsigmoid colon is noted. IMPRESSION: 1.No acute intracranial hemorrhage, midline shift, or significant mass effect. 2.Age-indeterminate left nasal bone fracture. Otherwise no acute facial bone fractures identified. 3.Left periorbital hematoma without evidence of globe rupture. 4.Acute nondisplaced right C6 and C7 transverse process fractures. 5.Acute right first and left second through eighth rib fractures. 6.Age-indeterminate anterior wedge compression fractures of T1 and T2with 10% or less vertebral body height loss. These are stable fractures. 7.Acute mildly displaced sternal body fracture. 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 9.Acute anterior wedge compression fracture of L1 vertebral body withless than 10% of height loss. Acute nondisplaced fractures of right L2 and L3 transverse processes. These are stable fractures. These findings were discussed in detail with the patient's careprovider, Dr. Brenna Schaefer by Dr. Linda Oropeza via telephone at 2:23 PM on 02/15/2025 with readback comprehension and verification. Location The report was drafted by Linda Oropeza MD (resident in diagnostic radiology) 02/15/2025 1:12 PM. > Dictated by Linda Oropeza MD 02/15/2025 1:11 PM > Dictated by [employer] I, Alexandria Guadalupe MD have personally reviewed and interpreted this examination/study. > Interpreting Provider: Alexandria Guadalupe MD on 02/15/2025 3:52 PM us Cj Power MD CT ORDERABLES Final Resu lt * CT CERVICAL SPINE WO CONTRAST - C-Spine Trauma, Spine fracture (02/15/2025 12:23 PM CDT) Anatomical Region Laterality Modality Spine Computed Tomogra phy 02/15/2025 1:11 PM CDT Impressions 02/15/2025 3:52 PM CDT IMPRESSION: 1.No acute intracranial hemorrhage, midline shift, or significant mass effect. 2.Age-indeterminate left nasal bone fracture. Otherwise no acute facial bone fractures identified. 3.Left periorbital hematoma without evidence of globe rupture. 4.Acute nondisplaced right C6 and C7 transverse process fractures. 5.Acute right first and left second through eighth rib fractures. 6.Age-indeterminate anterior wedge compression fractures of T1 and T2 with 10% or less vertebral body height loss. These are stable fractures. 7.Acute mildly displaced sternal body fracture. 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 9.Acute anterior wedge compression fracture of L1 vertebral body with less than 10% of height loss. Acute nondisplaced fractures of right L2 and L3 transverse processes. These are stable fractures. These findings were discussed in detail with the patient's care provider, Dr. Brenna Schaefer by Dr. Linda Oropeza via telephone at 2:23 PM on 02/15/2025 with readback comprehension and verification. Location The report was drafted by Linda Oropeza MD (resident in diagnostic radiology) 02/15/2025 1:12 PM. > Dictated by Linda Oropeza MD 02/15/2025 1:11 PM > Dictated by [employer] I, Alexandria Guadalupe MD have personally reviewed and interpreted this examination/study. > Interpreting Provider: Alexandria Guadalupe MD on 02/15/2025 3:52 PM Narrative 02/15/2025 3:52 PM CDT PROCEDURE: CT HEAD WO CONTRAST, CT LUMBAR SPINE WO CONTRAST, CT THORACIC SPINE WO CONTRAST, CT CERVICAL SPINE WO CONTRAST, CT FACIAL BONES WO CONTRAST, DATE/TIME OF EXAM: 02/15/2025 12:25 PM, LOCATION [facility] INDICATION: T14.90XA: Trauma ADDITIONAL CLINICAL INFORMATION: Ordering Provider Reason For Exam: Technologist Note: Additional: COMPARISON: None. TECHNIQUE: CT of the head, cervical spine, and maxillofacial bones, orbits, and paranasal sinuses was performed without contrast according to standard protocol. Reformatted axial, sagittal, and coronal images of the thoracic and lumbar spine were obtained by the technologist from a concurrently performed body CT and sent to the workstation for review. COMPARISON: No prior study is available for comparison at the time of this dictation. FINDINGS: Head: No acute intra- or extra-axial fluid collections are identified. There is moderate cerebral volume loss. The basilar cisterns are patent. No mass effect or midline shift is seen. A large area of encephalomalacia in the right frontal, parietal, and temporal lobes in the right MCA territory territory most likely reflects an old infarct. A chronic lacunar infarcts are also seen in the left basal ganglia. There is ex vacuo ventricular dilatation of right lateral ventricle secondary to suspected old right MCA infarct. The ventricles are midline without evidence of hydrocephalus. 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 No acute loss of oakes-white matter differentiation is seen. Periventricular white matter hypoattenuation is indicative of chronic small vessel ischemic disease. There is extensive vascular calcification of the carotid siphons and V4 segments of vertebral arteries. No acute calvarial fracture is identified. Incidental noted hyperostosis frontalis interna. Maxillofacial: There is an age indeterminate left nasal bone fracture (series 11 image 118). No other definite acute facial bone fractures are identified. The orbits appear normal. There is mild paranasal sinus disease. Mild leftward deviation of nasal septum and a bobbi bullosa of right middle turbinate are noted. The hard palate, mandible, and temporomandibular joints are intact. The mastoid air cells are clear. Incidental note of a torus palatinum. A left periorbital hematoma is present without evidence of globe rupture or injury. Cervical spine: Acute mildly displaced right transverse process fracture of C7 and C6 vertebral bodies. No scoliosis or spondylolisthesis is appreciated. Other than middle atlantoaxial joint osteoarthritis, the craniocervical junction appears normal. There is mild degenerative disc disease. Mild multilevel central canal stenosis due to disc protrusions. There are varying degrees of mild to moderate facet osteoarthritis. There are varying degrees of mild uncovertebral joint osteoarthritis No high-grade neural foraminal stenosis is seen. There is an acute right first rib fracture a small right apical pneumothorax. Extensive vascular calcifications are seen at the expected location of the bilateral carotid bifurcations. Soft tissue swelling in the right supraclavicular region and lower neck, in the region of the acute right cervical spine fractures. Thoracic spine: There are age-indeterminate anterior wedge compression fractures of T1 and T2 with 10% or less vertebral body height loss (image 73, series 2). There is an acute sternal body fracture. There are also acute mildly to severely displaced and depressed left second through eighth anterolateral rib fractures. Increased thoracic kyphosis is due to multilevel disc height loss. No scoliosis or spondylolisthesis is appreciated. There is mild to moderate degenerative disc disease. No high-grade central canal stenosis is seen. There are varying degrees of mild facet osteoarthritis. There are varying degrees of neural foraminal stenosis at multiple levels, greatest at T8-T9 and T9-T10. There is subsegmental atelectasis in the dependent portions of the lung bases. There is diffuse heterogeneous enhancement of the thyroid gland. A filling defect in the left common carotid artery (series 503 image [id number]) represents a dissection flap but there is no high-grade stenosis. Atherosclerotic calcifications are noted in the thoracic aorta and its branch vessels. Atherosclerotic calcifications are present in the coronary arteries. Lumbar spine: There is an acute compression fracture of L1 vertebral body with less than 10% of height loss. Additional acute nondisplaced fractures of right transverse processes of L2 and L3 are noted. The lumbar spine is straightened which could be positional. No significant scoliosis or spondylolisthesis is appreciated. There is mild to moderate degenerative disc disease, greatest at L5-S1. Mild to moderate spinal canal stenosis is seen in the mid to lower lumbar spine, greatest at L4-L5. There are varying degrees of mild facet osteoarthritis. Bilateral foraminal narrowing is seen in the mid to lower lumbar spine. There are extensive atherosclerotic calcification of the abdominal aorta and its branch vessels. Diffuse bowel wall thickening of rectum and sigmoid colon is noted. Procedure Note Alexandria Guadalupe MD - 02/15/2025 PROCEDURE: CT HEAD WO CONTRAST, CT LUMBAR SPINE WO CONTRAST, CTTHORACIC SPINE WO CONTRAST, CT CERVICAL SPINE WO CONTRAST, CT FACIAL BONES WO CONTRAST, DATE/TIME OF EXAM: 02/15/2025 12:25 PM, LOCATION [facility] INDICATION: T14.90XA: Trauma ADDITIONAL CLINICAL INFORMATION: Ordering Provider Reason For Exam: Technologist Note: Additional: COMPARISON: None. TECHNIQUE: CT of the head, cervical spine, and maxillofacial bones,orbits, and paranasal sinuses was performed without contrast according tostandard protocol. Reformatted axial, sagittal, and coronal images of thethoracic and lumbar spine were obtained by the technologist from a concurrently performed body CT and sent to the workstation for review. COMPARISON: No prior study is available for comparison at the time ofthis dictation. FINDINGS: Head: No acute intra- or extra-axial fluid collections are identified. There is moderate cerebral volume loss. The basilar cisterns are patent.No mass effect or midline shift is seen. A large area of encephalomalacia in the right frontal, parietal, and temporal lobes in the right MCA territory territory most likely reflectsan old infarct. A chronic lacunar infarcts are also seen in the left basal ganglia.There is ex vacuo ventricular dilatation of right lateral ventricle secondaryto suspected old right MCA infarct. The ventricles are midline without evidence of hydrocephalus. 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 No acute loss of oakes-white matter differentiation is seen.Periventricular white matter hypoattenuation is indicative of chronic small vesselischemic disease. There is extensive vascular calcification of the carotidsiphons and V4 segments of vertebral arteries. No acute calvarial fracture is identified. Incidental noted hyperostosis frontalis interna. Maxillofacial: There is an age indeterminate left nasal bone fracture (series 11 image 118). No other definite acute facial bone fractures are identified. The orbits appear normal. There is mild paranasal sinus disease. Mild leftward deviation of nasal septum and a bobbi bullosa of right middle turbinate are noted. The hard palate, mandible, and temporomandibular joints are intact. The mastoid air cells are clear. Incidental note of a torus palatinum. A left periorbital hematoma is present without evidence of globe ruptureor injury. Cervical spine: Acute mildly displaced right transverse process fracture of C7 and C6 vertebral bodies. No scoliosis or spondylolisthesis is appreciated. Other than middle atlantoaxial joint osteoarthritis, the craniocervical junction appears normal. There is mild degenerative disc disease. Mild multilevel central canal stenosis due to disc protrusions. There are varying degrees of mild to moderate facet osteoarthritis. There are varying degrees of mild uncovertebral joint osteoarthritis No high-grade neural foraminalstenosis is seen. There is an acute right first rib fracture a small right apical pneumothorax. Extensive vascular calcifications are seen at the expected location of the bilateral carotid bifurcations. Soft tissue swelling inthe right supraclavicular region and lower neck, in the region of the acute right cervical spine fractures. Thoracic spine: There are age-indeterminate anterior wedge compression fractures of T1and T2 with 10% or less vertebral body height loss (image 73, series 2). There is an acute sternal body fracture. There are also acute mildly to severely displaced and depressed left second through eighthanterolateral rib fractures. Increased thoracic kyphosis is due to multilevel disc height loss. No scoliosis or spondylolisthesis is appreciated. There is mild to moderate degenerative disc disease. No high-gradecentral canal stenosis is seen. There are varying degrees of mild facet osteoarthritis. There are varying degrees of neural foraminal stenosisat multiple levels, greatest at T8-T9 and T9-T10. There is subsegmental atelectasis in the dependent portions of the lung bases. There is diffuse heterogeneous enhancement of the thyroid gland. A filling defect in the left common carotid artery (series 503 -[id number]) represents a dissection flap but there is no high-grade stenosis. Atherosclerotic calcifications are noted in the thoracic aorta and its branch vessels. Atherosclerotic calcifications are present in the coronary arteries. Lumbar spine: There is an acute compression fracture of L1 vertebral body with lessthan 10% of height loss. Additional acute nondisplaced fractures of right transverse processes ofL2 and L3 are noted. The lumbar spine is straightened which could be positional. Nosignificant scoliosis or spondylolisthesis is appreciated. There is mild to moderate degenerative disc disease, greatest at L5-S1. Mild to moderate spinal canal stenosis is seen in the mid to lowerlumbar spine, greatest at L4-L5. There are varying degrees of mild facet osteoarthritis. Bilateral foraminal narrowing is seen in the mid tolower lumbar spine. There are extensive atherosclerotic calcification of the abdominal aorta and its branch vessels. Diffuse bowel wall thickening of rectum andsigmoid colon is noted. IMPRESSION: 1.No acute intracranial hemorrhage, midline shift, or significant mass effect. 2.Age-indeterminate left nasal bone fracture. Otherwise no acute facial bone fractures identified. 3.Left periorbital hematoma without evidence of globe rupture. 4.Acute nondisplaced right C6 and C7 transverse process fractures. 5.Acute right first and left second through eighth rib fractures. 6.Age-indeterminate anterior wedge compression fractures of T1 and T2with 10% or less vertebral body height loss. These are stable fractures. 7.Acute mildly displaced sternal body fracture. 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 9.Acute anterior wedge compression fracture of L1 vertebral body withless than 10% of height loss. Acute nondisplaced fractures of right L2 and L3 transverse processes. These are stable fractures. These findings were discussed in detail with the patient's careprocaesar, Dr. Brenna Schaefer by Dr. Linda Oropeza via telephone at 2:23 PM on 02/15/2025 with readback comprehension and verification. Location The report was drafted by Linda Oropeza MD (resident in diagnostic radiology) 02/15/2025 1:12 PM. > Dictated by Linda Oropeza MD 02/15/2025 1:11 PM > Dictated by [employer] I, Alexandria Guadalupe MD have personally reviewed and interpreted this examination/study. > Interpreting Provider: Alexandria Guadalupe MD on 02/15/2025 3:52 PM us Cj Power MD CT ORDERABLES Final Resu lt * CT FACIAL BONES WO CONTRAST - Facial trauma, fx suspected, blunt (02/15/2025 12:23 PM CDT) Anatomical Region Laterality Modality Head Computed Tomogra phy 02/15/2025 1:11 PM CDT Impressions 02/15/2025 3:52 PM CDT IMPRESSION: 1.No acute intracranial hemorrhage, midline shift, or significant mass effect. 2.Age-indeterminate left nasal bone fracture. Otherwise no acute facial bone fractures identified. 3.Left periorbital hematoma without evidence of globe rupture. 4.Acute nondisplaced right C6 and C7 transverse process fractures. 5.Acute right first and left second through eighth rib fractures. 6.Age-indeterminate anterior wedge compression fractures of T1 and T2 with 10% or less vertebral body height loss. These are stable fractures. 7.Acute mildly displaced sternal body fracture. 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 9.Acute anterior wedge compression fracture of L1 vertebral body with less than 10% of height loss. Acute nondisplaced fractures of right L2 and L3 transverse processes. These are stable fractures. These findings were discussed in detail with the patient's care provider, Dr. Brenna Schaefer by Dr. Linda Oropeza via telephone at 2:23 PM on 02/15/2025 with readback comprehension and verification. Location The report was drafted by Linda Oropeza MD (resident in diagnostic radiology) 02/15/2025 1:12 PM. > Dictated by Linda Oropeza MD 02/15/2025 1:11 PM > Dictated by [employer] I, Alexandria Guadalupe MD have personally reviewed and interpreted this examination/study. > Interpreting Provider: Alexandria uGadalupe MD on 02/15/2025 3:52 PM Narrative 02/15/2025 3:52 PM CDT PROCEDURE: CT HEAD WO CONTRAST, CT LUMBAR SPINE WO CONTRAST, CT THORACIC SPINE WO CONTRAST, CT CERVICAL SPINE WO CONTRAST, CT FACIAL BONES WO CONTRAST, DATE/TIME OF EXAM: 02/15/2025 12:25 PM, LOCATION [facility] INDICATION: T14.90XA: Trauma ADDITIONAL CLINICAL INFORMATION: Ordering Provider Reason For Exam: Technologist Note: Additional: COMPARISON: None. TECHNIQUE: CT of the head, cervical spine, and maxillofacial bones, orbits, and paranasal sinuses was performed without contrast according to standard protocol. Reformatted axial, sagittal, and coronal images of the thoracic and lumbar spine were obtained by the technologist from a concurrently performed body CT and sent to the workstation for review. COMPARISON: No prior study is available for comparison at the time of this dictation. FINDINGS: Head: No acute intra- or extra-axial fluid collections are identified. There is moderate cerebral volume loss. The basilar cisterns are patent. No mass effect or midline shift is seen. A large area of encephalomalacia in the right frontal, parietal, and temporal lobes in the right MCA territory territory most likely reflects an old infarct. A chronic lacunar infarcts are also seen in the left basal ganglia. There is ex vacuo ventricular dilatation of right lateral ventricle secondary to suspected old right MCA infarct. The ventricles are midline without evidence of hydrocephalus. 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 No acute loss of oakes-white matter differentiation is seen. Periventricular white matter hypoattenuation is indicative of chronic small vessel ischemic disease. There is extensive vascular calcification of the carotid siphons and V4 segments of vertebral arteries. No acute calvarial fracture is identified. Incidental noted hyperostosis frontalis interna. Maxillofacial: There is an age indeterminate left nasal bone fracture (series 11 image 118). No other definite acute facial bone fractures are identified. The orbits appear normal. There is mild paranasal sinus disease. Mild leftward deviation of nasal septum and a bobbi bullosa of right middle turbinate are noted. The hard palate, mandible, and temporomandibular joints are intact. The mastoid air cells are clear. Incidental note of a torus palatinum. A left periorbital hematoma is present without evidence of globe rupture or injury. Cervical spine: Acute mildly displaced right transverse process fracture of C7 and C6 vertebral bodies. No scoliosis or spondylolisthesis is appreciated. Other than middle atlantoaxial joint osteoarthritis, the craniocervical junction appears normal. There is mild degenerative disc disease. Mild multilevel central canal stenosis due to disc protrusions. There are varying degrees of mild to moderate facet osteoarthritis. There are varying degrees of mild uncovertebral joint osteoarthritis No high-grade neural foraminal stenosis is seen. There is an acute right first rib fracture a small right apical pneumothorax. Extensive vascular calcifications are seen at the expected location of the bilateral carotid bifurcations. Soft tissue swelling in the right supraclavicular region and lower neck, in the region of the acute right cervical spine fractures. Thoracic spine: There are age-indeterminate anterior wedge compression fractures of T1 and T2 with 10% or less vertebral body height loss (image 73, series 2). There is an acute sternal body fracture. There are also acute mildly to severely displaced and depressed left second through eighth anterolateral rib fractures. Increased thoracic kyphosis is due to multilevel disc height loss. No scoliosis or spondylolisthesis is appreciated. There is mild to moderate degenerative disc disease. No high-grade central canal stenosis is seen. There are varying degrees of mild facet osteoarthritis. There are varying degrees of neural foraminal stenosis at multiple levels, greatest at T8-T9 and T9-T10. There is subsegmental atelectasis in the dependent portions of the lung bases. There is diffuse heterogeneous enhancement of the thyroid gland. A filling defect in the left common carotid artery (series 503 image [id number]) represents a dissection flap but there is no high-grade stenosis. Atherosclerotic calcifications are noted in the thoracic aorta and its branch vessels. Atherosclerotic calcifications are present in the coronary arteries. Lumbar spine: There is an acute compression fracture of L1 vertebral body with less than 10% of height loss. Additional acute nondisplaced fractures of right transverse processes of L2 and L3 are noted. The lumbar spine is straightened which could be positional. No significant scoliosis or spondylolisthesis is appreciated. There is mild to moderate degenerative disc disease, greatest at L5-S1. Mild to moderate spinal canal stenosis is seen in the mid to lower lumbar spine, greatest at L4-L5. There are varying degrees of mild facet osteoarthritis. Bilateral foraminal narrowing is seen in the mid to lower lumbar spine. There are extensive atherosclerotic calcification of the abdominal aorta and its branch vessels. Diffuse bowel wall thickening of rectum and sigmoid colon is noted. Procedure Note Aleaxndria Guadalupe MD - 02/15/2025 PROCEDURE: CT HEAD WO CONTRAST, CT LUMBAR SPINE WO CONTRAST, CTTHORACIC SPINE WO CONTRAST, CT CERVICAL SPINE WO CONTRAST, CT FACIAL BONES WO CONTRAST, DATE/TIME OF EXAM: 02/15/2025 12:25 PM, LOCATION [facility] INDICATION: T14.90XA: Trauma ADDITIONAL CLINICAL INFORMATION: Ordering Provider Reason For Exam: Technologist Note: Additional: COMPARISON: None. TECHNIQUE: CT of the head, cervical spine, and maxillofacial bones,orbits, and paranasal sinuses was performed without contrast according tostandard protocol. Reformatted axial, sagittal, and coronal images of thethoracic and lumbar spine were obtained by the technologist from a concurrently performed body CT and sent to the workstation for review. COMPARISON: No prior study is available for comparison at the time ofthis dictation. FINDINGS: Head: No acute intra- or extra-axial fluid collections are identified. There is moderate cerebral volume loss. The basilar cisterns are patent.No mass effect or midline shift is seen. A large area of encephalomalacia in the right frontal, parietal, and temporal lobes in the right MCA territory territory most likely reflectsan old infarct. A chronic lacunar infarcts are also seen in the left basal ganglia.There is ex vacuo ventricular dilatation of right lateral ventricle secondaryto suspected old right MCA infarct. The ventricles are midline without evidence of hydrocephalus. 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 No acute loss of oakes-white matter differentiation is seen.Periventricular white matter hypoattenuation is indicative of chronic small vesselischemic disease. There is extensive vascular calcification of the carotidsiphons and V4 segments of vertebral arteries. No acute calvarial fracture is identified. Incidental noted hyperostosis frontalis interna. Maxillofacial: There is an age indeterminate left nasal bone fracture (series 11 image 118). No other definite acute facial bone fractures are identified. The orbits appear normal. There is mild paranasal sinus disease. Mild leftward deviation of nasal septum and a bobbi bullosa of right middle turbinate are noted. The hard palate, mandible, and temporomandibular joints are intact. The mastoid air cells are clear. Incidental note of a torus palatinum. A left periorbital hematoma is present without evidence of globe ruptureor injury. Cervical spine: Acute mildly displaced right transverse process fracture of C7 and C6 vertebral bodies. No scoliosis or spondylolisthesis is appreciated. Other than middle atlantoaxial joint osteoarthritis, the craniocervical junction appears normal. There is mild degenerative disc disease. Mild multilevel central canal stenosis due to disc protrusions. There are varying degrees of mild to moderate facet osteoarthritis. There are varying degrees of mild uncovertebral joint osteoarthritis No high-grade neural foraminalstenosis is seen. There is an acute right first rib fracture a small right apical pneumothorax. Extensive vascular calcifications are seen at the expected location of the bilateral carotid bifurcations. Soft tissue swelling inthe right supraclavicular region and lower neck, in the region of the acute right cervical spine fractures. Thoracic spine: There are age-indeterminate anterior wedge compression fractures of T1and T2 with 10% or less vertebral body height loss (image 73, series 2). There is an acute sternal body fracture. There are also acute mildly to severely displaced and depressed left second through eighthanterolateral rib fractures. Increased thoracic kyphosis is due to multilevel disc height loss. No scoliosis or spondylolisthesis is appreciated. There is mild to moderate degenerative disc disease. No high-gradecentral canal stenosis is seen. There are varying degrees of mild facet osteoarthritis. There are varying degrees of neural foraminal stenosisat multiple levels, greatest at T8-T9 and T9-T10. There is subsegmental atelectasis in the dependent portions of the lung bases. There is diffuse heterogeneous enhancement of the thyroid gland. A filling defect in the left common carotid artery (series 503 [id number]) represents a dissection flap but there is no high-grade stenosis. Atherosclerotic calcifications are noted in the thoracic aorta and its branch vessels. Atherosclerotic calcifications are present in the coronary arteries. Lumbar spine: There is an acute compression fracture of L1 vertebral body with lessthan 10% of height loss. Additional acute nondisplaced fractures of right transverse processes ofL2 and L3 are noted. The lumbar spine is straightened which could be positional. Nosignificant scoliosis or spondylolisthesis is appreciated. There is mild to moderate degenerative disc disease, greatest at L5-S1. Mild to moderate spinal canal stenosis is seen in the mid to lowerlumbar spine, greatest at L4-L5. There are varying degrees of mild facet osteoarthritis. Bilateral foraminal narrowing is seen in the mid tolower lumbar spine. There are extensive atherosclerotic calcification of the abdominal aorta and its branch vessels. Diffuse bowel wall thickening of rectum andsigmoid colon is noted. IMPRESSION: 1.No acute intracranial hemorrhage, midline shift, or significant mass effect. 2.Age-indeterminate left nasal bone fracture. Otherwise no acute facial bone fractures identified. 3.Left periorbital hematoma without evidence of globe rupture. 4.Acute nondisplaced right C6 and C7 transverse process fractures. 5.Acute right first and left second through eighth rib fractures. 6.Age-indeterminate anterior wedge compression fractures of T1 and T2with 10% or less vertebral body height loss. These are stable fractures. 7.Acute mildly displaced sternal body fracture. 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 9.Acute anterior wedge compression fracture of L1 vertebral body withless than 10% of height loss. Acute nondisplaced fractures of right L2 and L3 transverse processes. These are stable fractures. These findings were discussed in detail with the patient's careprovider, Dr. Brenna Schaefer by Dr. Linda Oropeza via telephone at 2:23 PM on 02/15/2025 with readback comprehension and verification. Location The report was drafted by Linda Oropeza MD (resident in diagnostic radiology) 02/15/2025 1:12 PM. > Dictated by Linda Oropeza MD 02/15/2025 1:11 PM > Dictated by [employer] I, Alexandria Guadalupe MD have personally reviewed and interpreted this examination/study. > Interpreting Provider: Alexandria Guadalupe MD on 02/15/2025 3:52 PM us Cj Power MD CT ORDERABLES Final Resu lt * CT HEAD WO CONTRAST - Head Trauma, CSF leak, mental status changes (02/15/2025 12:23 PM CDT) Anatomical Region Laterality Modality Head Computed Tomogra phy 02/15/2025 1:11 PM CDT Impressions 02/15/2025 3:52 PM CDT IMPRESSION: 1.No acute intracranial hemorrhage, midline shift, or significant mass effect. 2.Age-indeterminate left nasal bone fracture. Otherwise no acute facial bone fractures identified. 3.Left periorbital hematoma without evidence of globe rupture. 4.Acute nondisplaced right C6 and C7 transverse process fractures. 5.Acute right first and left second through eighth rib fractures. 6.Age-indeterminate anterior wedge compression fractures of T1 and T2 with 10% or less vertebral body height loss. These are stable fractures. 7.Acute mildly displaced sternal body fracture. 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 9.Acute anterior wedge compression fracture of L1 vertebral body with less than 10% of height loss. Acute nondisplaced fractures of right L2 and L3 transverse processes. These are stable fractures. These findings were discussed in detail with the patient's care provider, Dr. Brenna Schaefer by Dr. Linda Oropeza via telephone at 2:23 PM on 02/15/2025 with readback comprehension and verification. Location The report was drafted by Linda Oropeza MD (resident in diagnostic radiology) 02/15/2025 1:12 PM. > Dictated by Linda Oropeza MD 02/15/2025 1:11 PM > Dictated by [employer] I, Alexandria Guadalupe MD have personally reviewed and interpreted this examination/study. > Interpreting Provider: Alexandria Guadalupe MD on 02/15/2025 3:52 PM Narrative 02/15/2025 3:52 PM CDT PROCEDURE: CT HEAD WO CONTRAST, CT LUMBAR SPINE WO CONTRAST, CT THORACIC SPINE WO CONTRAST, CT CERVICAL SPINE WO CONTRAST, CT FACIAL BONES WO CONTRAST, DATE/TIME OF EXAM: 02/15/2025 12:25 PM, LOCATION [facility] INDICATION: T14.90XA: Trauma ADDITIONAL CLINICAL INFORMATION: Ordering Provider Reason For Exam: Technologist Note: Additional: COMPARISON: None. TECHNIQUE: CT of the head, cervical spine, and maxillofacial bones, orbits, and paranasal sinuses was performed without contrast according to standard protocol. Reformatted axial, sagittal, and coronal images of the thoracic and lumbar spine were obtained by the technologist from a concurrently performed body CT and sent to the workstation for review. COMPARISON: No prior study is available for comparison at the time of this dictation. FINDINGS: Head: No acute intra- or extra-axial fluid collections are identified. There is moderate cerebral volume loss. The basilar cisterns are patent. No mass effect or midline shift is seen. A large area of encephalomalacia in the right frontal, parietal, and temporal lobes in the right MCA territory territory most likely reflects an old infarct. A chronic lacunar infarcts are also seen in the left basal ganglia. There is ex vacuo ventricular dilatation of right lateral ventricle secondary to suspected old right MCA infarct. The ventricles are midline without evidence of hydrocephalus. 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 No acute loss of oakes-white matter differentiation is seen. Periventricular white matter hypoattenuation is indicative of chronic small vessel ischemic disease. There is extensive vascular calcification of the carotid siphons and V4 segments of vertebral arteries. No acute calvarial fracture is identified. Incidental noted hyperostosis frontalis interna. Maxillofacial: There is an age indeterminate left nasal bone fracture (series 11 image 118). No other definite acute facial bone fractures are identified. The orbits appear normal. There is mild paranasal sinus disease. Mild leftward deviation of nasal septum and a bobbi bullosa of right middle turbinate are noted. The hard palate, mandible, and temporomandibular joints are intact. The mastoid air cells are clear. Incidental note of a torus palatinum. A left periorbital hematoma is present without evidence of globe rupture or injury. Cervical spine: Acute mildly displaced right transverse process fracture of C7 and C6 vertebral bodies. No scoliosis or spondylolisthesis is appreciated. Other than middle atlantoaxial joint osteoarthritis, the craniocervical junction appears normal. There is mild degenerative disc disease. Mild multilevel central canal stenosis due to disc protrusions. There are varying degrees of mild to moderate facet osteoarthritis. There are varying degrees of mild uncovertebral joint osteoarthritis No high-grade neural foraminal stenosis is seen. There is an acute right first rib fracture a small right apical pneumothorax. Extensive vascular calcifications are seen at the expected location of the bilateral carotid bifurcations. Soft tissue swelling in the right supraclavicular region and lower neck, in the region of the acute right cervical spine fractures. Thoracic spine: There are age-indeterminate anterior wedge compression fractures of T1 and T2 with 10% or less vertebral body height loss (image 73, series 2). There is an acute sternal body fracture. There are also acute mildly to severely displaced and depressed left second through eighth anterolateral rib fractures. Increased thoracic kyphosis is due to multilevel disc height loss. No scoliosis or spondylolisthesis is appreciated. There is mild to moderate degenerative disc disease. No high-grade central canal stenosis is seen. There are varying degrees of mild facet osteoarthritis. There are varying degrees of neural foraminal stenosis at multiple levels, greatest at T8-T9 and T9-T10. There is subsegmental atelectasis in the dependent portions of the lung bases. There is diffuse heterogeneous enhancement of the thyroid gland. A filling defect in the left common carotid artery (series 503 image [id number]) represents a dissection flap but there is no high-grade stenosis. Atherosclerotic calcifications are noted in the thoracic aorta and its branch vessels. Atherosclerotic calcifications are present in the coronary arteries. Lumbar spine: There is an acute compression fracture of L1 vertebral body with less than 10% of height loss. Additional acute nondisplaced fractures of right transverse processes of L2 and L3 are noted. The lumbar spine is straightened which could be positional. No significant scoliosis or spondylolisthesis is appreciated. There is mild to moderate degenerative disc disease, greatest at L5-S1. Mild to moderate spinal canal stenosis is seen in the mid to lower lumbar spine, greatest at L4-L5. There are varying degrees of mild facet osteoarthritis. Bilateral foraminal narrowing is seen in the mid to lower lumbar spine. There are extensive atherosclerotic calcification of the abdominal aorta and its branch vessels. Diffuse bowel wall thickening of rectum and sigmoid colon is noted. Procedure Note Alexandria Guadalupe MD - 02/15/2025 PROCEDURE: CT HEAD WO CONTRAST, CT LUMBAR SPINE WO CONTRAST, CTTHORACIC SPINE WO CONTRAST, CT CERVICAL SPINE WO CONTRAST, CT FACIAL BONES WO CONTRAST, DATE/TIME OF EXAM: 02/15/2025 12:25 PM, LOCATION [facility] INDICATION: T14.90XA: Trauma ADDITIONAL CLINICAL INFORMATION: Ordering Provider Reason For Exam: Technologist Note: Additional: COMPARISON: None. TECHNIQUE: CT of the head, cervical spine, and maxillofacial bones,orbits, and paranasal sinuses was performed without contrast according tostandard protocol. Reformatted axial, sagittal, and coronal images of thethoracic and lumbar spine were obtained by the technologist from a concurrently performed body CT and sent to the workstation for review. COMPARISON: No prior study is available for comparison at the time ofthis dictation. FINDINGS: Head: No acute intra- or extra-axial fluid collections are identified. There is moderate cerebral volume loss. The basilar cisterns are patent.No mass effect or midline shift is seen. A large area of encephalomalacia in the right frontal, parietal, and temporal lobes in the right MCA territory territory most likely reflectsan old infarct. A chronic lacunar infarcts are also seen in the left basal ganglia.There is ex vacuo ventricular dilatation of right lateral ventricle secondaryto suspected old right MCA infarct. The ventricles are midline without evidence of hydrocephalus. 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 No acute loss of oakes-white matter differentiation is seen.Periventricular white matter hypoattenuation is indicative of chronic small vesselischemic disease. There is extensive vascular calcification of the carotidsiphons and V4 segments of vertebral arteries. No acute calvarial fracture is identified. Incidental noted hyperostosis frontalis interna. Maxillofacial: There is an age indeterminate left nasal bone fracture (series 11 image 118). No other definite acute facial bone fractures are identified. The orbits appear normal. There is mild paranasal sinus disease. Mild leftward deviation of nasal septum and a bobbi bullosa of right middle turbinate are noted. The hard palate, mandible, and temporomandibular joints are intact. The mastoid air cells are clear. Incidental note of a torus palatinum. A left periorbital hematoma is present without evidence of globe ruptureor injury. Cervical spine: Acute mildly displaced right transverse process fracture of C7 and C6 vertebral bodies. No scoliosis or spondylolisthesis is appreciated. Other than middle atlantoaxial joint osteoarthritis, the craniocervical junction appears normal. There is mild degenerative disc disease. Mild multilevel central canal stenosis due to disc protrusions. There are varying degrees of mild to moderate facet osteoarthritis. There are varying degrees of mild uncovertebral joint osteoarthritis No high-grade neural foraminalstenosis is seen. There is an acute right first rib fracture a small right apical pneumothorax. Extensive vascular calcifications are seen at the expected location of the bilateral carotid bifurcations. Soft tissue swelling inthe right supraclavicular region and lower neck, in the region of the acute right cervical spine fractures. Thoracic spine: There are age-indeterminate anterior wedge compression fractures of T1and T2 with 10% or less vertebral body height loss (image 73, series 2). There is an acute sternal body fracture. There are also acute mildly to severely displaced and depressed left second through eighthanterolateral rib fractures. Increased thoracic kyphosis is due to multilevel disc height loss. No scoliosis or spondylolisthesis is appreciated. There is mild to moderate degenerative disc disease. No high-gradecentral canal stenosis is seen. There are varying degrees of mild facet osteoarthritis. There are varying degrees of neural foraminal stenosisat multiple levels, greatest at T8-T9 and T9-T10. There is subsegmental atelectasis in the dependent portions of the lung bases. There is diffuse heterogeneous enhancement of the thyroid gland. A filling defect in the left common carotid artery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
[2025-04-20 13:55] LABS: Hemoglobin A1C 6.8 % (<5.7)
[2025-04-22 09:53] LABS: Total Triiodothyronine (T3) 0.76 NG/ML (0.97-1.69)
== END 2025-04-19 16:30 | disposition home or self-care (01) ==
LOC: CHSLAB 16:30
PROVIDERS: PCP Nurse Practitioner Family; Visit Provider Nurse Practitioner Family
DX: I10 Essential (primary) hypertension (principal); R79.89 Other specified abnormal findings of blood chemistry; E03.9 Hypothyroidism, unspecified; E87.6 Hypokalemia; E11.9 Type 2 diabetes mellitus without complications
CPT/HCPCS: 36415; 80053; 83036; 84439; 84443; 84480; 85025; 85055